=== PATIENT | female | born 1980 | race Caucasian/White ===

== ENCOUNTER 2017-01-27 16:50 | Inpatient (IN) | payer MEDICAID, OTHER ==
[2017-01-27 18:03] LABS: Hematocrit 42 % (35-47); Hemoglobin 13.9 g/dl (12.0-16.0); Mean Corpuscular HGB Conc 33 g/dl (31-36); Mean Corpuscular Hemoglobin 31 pg (27-31); Mean Corpuscular Volume 93 fL (80-97); Mean Platelet Volume 10 um3 (7.4-10.4); Red Blood Count 4.54 10^6/ul (4.0-5.4); Red Cell Distribution Width 13 % (10.5-15); White Blood Count 5.6 10^3/ul (3.5-10.8)
[2017-01-27 18:19] LABS: ALT 11 U/L (7-52); AST 15 U/L (13-39); Albumin 3.9 g/dL (3.2-5.2); Alkaline Phosphatase 41 U/L (34-104); Anion Gap 4 mmol/L (2-11); BUN/Creatinine Ratio 13.9 (8-20); Blood Urea Nitrogen 11 mg/dL (6-24); CO2 Carbon Dioxide 29 mmol/L (22-32); Calcium 8.8 mg/dL (8.6-10.3); Chloride 107 mmol/L (101-111); EGFR African American 104.7 (>60); EGFR Non-African American 81.4 (>60); Globulin 2.8 g/dL (2-4); Glucose 113 mg/dL (70-100); Sodium 140 mmol/L (133-145); Total Protein 6.7 g/dL (6.4-8.9)
[2017-01-27 18:38] LABS: Acetaminophen < 15 mcg/mL; Alcohol < 10 mg/dL (<10); Salicylate < 2.50 mg/dL (<30)
[2017-01-27 18:49] LABS: TSH (Thyroid Stimulating Horm) 1.61 mcIU/mL (0.34-5.60)
--- NOTE | 2017-01-27 22:34 | ED ---
Bryant Domingo Benjamin, scribed for Ji Castillo MD on 01/27/17 at 1717 . Psychiatric Complaint - HPI Summary HPI Summary: 36yo female reporting SI and depression. Hx of DM. Pt denies drug or ETOH use today, but pt took her regular psych meds. - History Of Current Complaint Chief Complaint: EDMentalHealth Time Seen by Provider: 01/27/17 17:12 Hx Obtained From: Patient Hx Last Menstrual Period: 2 WEEKS AGO Onset/Duration: Sudden Onset, Lasting Hours, Still Present Timing: Constant Severity Initially: Mild Severity Currently: Mild Character: Depressed Aggravating Factor(s): Nothing Alleviating Factor(s): Nothing Associated Signs And Symptoms: Positive: Negative Has Suicidal: Reports: Thoughts. Denies: With A Plan Has Homicidal: Denies: Thoughts, With A Plan - Allergies/Home Medications Allergies/Adverse Reactions: Allergies Allergy/AdvReac Type Severity Reaction Status Date / Time Amoxicillin AdvReac Intermediate Itching Verified 01/27/17 16:53 Azithromycin [From Zithromax] AdvReac Intermediate GI Upset Verified 01/27/17 16 :53 kiwi Allergy Severe Itching Uncoded 01/27/17 16:53 PMH/Surg Hx/FS Hx/Imm Hx Endocrine/Hematology History: Reports: Hx Thyroid Disease - related to medication. history of hypothyroid related to litihum Denies: Hx Diabetes Cardiovascular History: Denies: Hx Hypertension Respiratory History: Denies: Hx Asthma, Hx Chronic Obstructive Pulmonary Disease (COPD) GI History: Denies: Hx Ulcer Neurological History: Comment Only: Hx Seizures - per previous H&P was evaluated with long-term EEG for seizures Psychiatric History: Reports: Hx Depression, Hx Post Traumatic Stress Disorder, Hx Inpatient Treatment, Hx Community Mental Health Tx, Hx Bipolar Disorder, Hx Suicide Attempt Denies: Hx Eating Disorder, Hx of Violent Episodes Against Others - Surgical History Surgery Procedure, Year, and Place: leg vein removal (age 18) Oral surgery related to teeth grinding. Infectious Disease History: Denies: Hx Hepatitis, Hx Human Immunodeficiency Virus (HIV), Traveled Outside the [place] in Last 30 Days - Family History Known Family History: Positive: Other - Schizophrenia, depression - Social History Occupation: Unemployed Lives: Alone Alcohol Use: None Hx Substance Use: No Substance Use Type: Reports: None Hx Tobacco Use: No Smoking Status (MU): Never Smoked Tobacco Review of Systems Constitutional: Negative Eyes: Negative ENT: Negative Cardiovascular: Negative Respiratory: Negative Gastrointestinal: Negative Genitourinary: Negative Musculoskeletal: Negative Skin: Negative Neurological: Negative Positive: Depressed, Other - SI All Other Systems Reviewed And Are Negative: Yes Physical Exam Triage Information Reviewed: Yes Vital Signs On Initial Exam: Initial Vitals Temp Pulse Resp BP Pulse Ox 98.7 F 110 16 137/78 97 01/27/17 16:53 01/27/17 16:53 01/27/17 16:53 01/27/17 16:53 01/27/17 16:53 Vital Signs Reviewed: Yes Appearance: Positive: Well-Appearing, No Pain Distress, Well-Nourished Skin: Positive: Warm, Skin Color Reflects Adequate Perfusion, Dry Head/Face: Positive: Normal Head/Face Inspection Eyes: Positive: EOMI, ALMA, Conjunctiva Clear ENT: Positive: Normal ENT inspection, Hearing grossly normal Neck: Positive: Supple, Nontender Respiratory/Lung Sounds: Positive: Clear to Auscultation, Breath Sounds Present Cardiovascular: Positive: RRR Abdomen Description: Positive: Nontender, Soft Bowel Sounds: Positive: Present Musculoskeletal: Positive: Strength/ROM Intact Neurological: Positive: Sensory/Motor Intact, Alert, Oriented to Person Place, Time, CN Intact II-III Psychiatric: Positive: Depressed Diagnostics - Vital Signs Vital Signs Temp Pulse Resp BP Pulse Ox 01/27/17 16:53 98.7 F 110 16 137/78 97 - Laboratory Lab Results: Lab Results 01/27/17 01/27/17 Range/Units 17:53 17:53 WBC 5.6 (3.5-10.8) 10^3/ul RBC 4.54 (4.0-5.4) 10^6/ul Hgb 13.9 (12.0-16.0) g/dl Hct 42 (35-47) % MCV 93 (80-97) fL MCH 31 (27-31) pg MCHC 33 (31-36) g/dl RDW 13 (10.5-15) % Plt Count 219 (150-450) 10^3/ul MPV 10 (7.4-10.4) um3 Neut % (Auto) 52.8 (38-83) % Lymph % (Auto) 34.0 (25-47) % [place] % (Auto) 10.7 H (1-9) % Eos % (Auto) 1.9 (0-6) % Baso % (Auto) 0.6 (0-2) % Absolute Neuts (auto) 2.9 (1.5-7.7) 10^3/ul Absolute Lymphs (auto) 1.9 (1.0-4.8) 10^3/ul Absolute Monos (auto) 0.6 (0-0.8) 10^3/ul Absolute Eos (auto) 0.1 (0-0.6) 10^3/ul Absolute Basos (auto) 0 (0-0.2) 10^3/ul Absolute Nucleated RBC 0 10^3/ul Nucleated RBC % 0 Sodium 140 (133-145) mmol/L Potassium 4.0 (3.5-5.0) mmol/L Chloride 107 (101-111) mmol/L Carbon Dioxide 29 (22-32) mmol/L Anion Gap 4 (2-11) mmol/L BUN 11 (6-24) mg/dL Creatinine 0.79 (0.51-0.95) mg/dL Est GFR ( Amer) 104.7 (>60) Est GFR (Non-Af Amer) 81.4 (>60) BUN/Creatinine Ratio 13.9 (8-20) Glucose 113 H (70-100) mg/dL Calcium 8.8 (8.6-10.3) mg/dL Total Bilirubin 0.30 (0.2-1.0) mg/dL AST 15 (13-39) U/L ALT 11 (7-52) U/L Alkaline Phosphatase 41 (34-104) U/L Total Protein 6.7 (6.4-8.9) g/dL Albumin 3.9 (3.2-5.2) g/dL Globulin 2.8 (2-4) g/dL Albumin/Globulin Ratio 1.4 (1-3) TSH 1.61 (0.34-5.60) mcIU/mL Beta HCG, Quant < 0.60 mIU/mL Salicylates < 2.50 (<30) mg/dL Acetaminophen < 15 mcg/mL Serum Alcohol < 10 (<10) mg/dL Result Diagrams: 01/27/17 17:53 01/27/17 17:53 Lab Statement: Any lab studies that have been ordered have been reviewed, and results considered in the medical decision making process. Course/Dx - Course Course Of Treatment: Reviewed pts medication and allergy lists. Pt is medically cleared for mental health evaluation at 1999. [facility] HOLD AFTER MHE. - Differential Dx/Clinical Impression Provider Diagnosis: Mental health problem Discharge - Discharge Plan Condition: Stable Disposition: OTHER Discharge Disposition Comment: . Referrals: Giuseppe Manriquez, JUAN M [Primary Care Provider] - The documentation as recorded by the Bryant guerrero Benjamin accurately reflects the service I personally performed and the decisions made by me, Ji Castillo MD.
[2017-01-28] MEDS ORDERED: clonazePAM TAB(*) 1 MG PO ONE (20:00)
[2017-01-28] MEDS ORDERED: ARIPiprazole TAB* 5 MG PO ONE (20:00)
[2017-01-28] MEDS ORDERED: clonazePAM TAB(*) 1 MG ONE (22:10)
[2017-01-28] MEDS ORDERED: ARIPiprazole TAB* 5 MG ONE (22:11)
[2017-01-29] MEDS: BuPROPion XL* 150 MG TAB.XL PO SCH (13:28)
[2017-01-29] MEDS: clonazePAM TAB(*) 0.5 MG PO PRN (13:29)
[2017-01-29 14:52] LABS: Urine Bilirubin Negative (Negative); Urine Glucose Negative (Negative); Urine Nitrite Negative (Negative)
[2017-01-29 16:15] LABS: Benzodiazepine Urine Screen None Detected (None Detect)
[2017-01-29] MEDS ORDERED: ARIPiprazole TAB* 5 MG PO SCH (20:00)
--- NOTE | 2017-01-29 21:50 | HP ---
HISTORY AND PHYSICAL: DATE OF ADMISSION: 01/28/17 SUPERVISING PSYCHIATRIST: Dr. Coleman Aguilar * (DICTATED BY HOMAR MALHOTRA NP) JUSTIFICATION FOR ADMISSION: The patient brought herself to the ED with complaints of increasing depression and suicidal ideation. She reported intrusive thoughts and afraid of impulsively acting upon these thoughts. She is currently in between a permanent housing situation. She merits hospitalization for immediate safety and stabilization. CHIEF COMPLAINT: "I have been going through a lot lately." HISTORY OF PRESENT ILLNESS: Kalee is a 36-year-old white woman with two previous admissions to the behavioral services unit, one in April of 2015 and then in December 2015. She has a history of bipolar disorder and has been treated at [facility]. She reports good rapport with both her therapist and her psychiatrist. Kalee states that in the beginning of September, she met a man online who lives in [place]. She states that she was more impulsive. She endorses lack of sleep with increased energy. She states that she was behaving in ways that were atypical for her. During the course of this new relationship, she made plans to move to [place] including not renewing her lease on her apartment. A few weeks ago, she changed her mind about moving to [place] and noted that she became more anxious and depressed. She states that it was too late to change her mind in regards to housing and now does not have her own apartment. She has been staying in a hotel or motel or staying with a friend. Kalee reports increasingly frequent suicidal thoughts. She states she has intrusive thoughts to drive into another car. She is afraid of impulsively acting on these thoughts. She states she is labile. She endorses anxiety. She is tearful during discussion and states this is not typical for her. She reports hypersomnia, increase in appetite, she endorses binge eating, she reports an increase of 70 pounds in the past year. She reports decreased interactions, social isolation, and anhedonia. She denies AH or VH. She denies HI or . PAST PSYCHIATRIC HISTORY: As stated above, Kalee is a patient of [facility]. Her therapist is Duncan Diane. She states that she has a very good relationship with him. He has been sick for approximately 3 weeks, so she has not been able to be in contact with him. Otherwise, she holds him in very high regard and appreciates the therapy she receives. She also reports that her psychiatrist, Dr. Robledo, is very helpful and she has a good relationship with her. As stated above, Kalee has been admitted to [facility] twice previously in 2015 and 2016. No other psychiatric history noted. SUBSTANCE USE HISTORY: Kalee reports drinking of alcohol occasionally in the past. She states that she has not done so recently as her psychiatrist encouraged her to refrain from alcohol due to its depressive effect. She reports having a cigarette very occasionally on social occasions. She denies other substance use. FAMILY PSYCHIATRIC HISTORY: Her mother had a history of schizoaffective disorder. She completed suicide. 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 CURRENT MEDICATIONS: Prescribed by Dr. Robledo: 1. Abilify 10 mg q.h.s. 2. Wellbutrin ? 200 mg q.a.m. 3. Clonazepam 1 mg b.i.d. The patient states she generally takes half to 1 tab daily. ALLERGIES: AMOXICILLIN, AZITHROMYCIN, KIWI. SVP RESEARCH [employer] EBUSINESS OPERATIONS HISTORY: Her last menstrual period 8 days ago. PRIMARY CARE PROVIDER: Malik Briones, Nurse practitioner in [place], [place]. SOCIAL HISTORY: Patient was raised in [place], [place]. Her parents when she was 1yo. She lived with her mother and had no contact with her father since then. Her mother began a relationship with Kalee's stepfother when patient was 3yo. They when Vickie was 10yo. The family moved to [place] two years later. Kalee's mother was hospitalized multiple times for schizoaffective d/o and completed suicide when patient was 27yo. 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 She lives alone. She is single, not currently dating. She considers herself bisexual. She denies current domestic violence or abuse. She graduated high school and also college. She has a bachelor's degree in technology. REVIEW OF SYSTEMS: The patient denies any chest pain, tachycardia, or palpitations. She denies dyspnea, productive cough, or hemoptysis. She denies any GI pain, nausea, vomiting, diarrhea, or constipation. Denies any acute musculoskeletal pain. Denies headaches or neurological complaints. PHYSICAL EXAMINATION Done in the emergency department reviewed. The patient denies need for repeat physical exam. VITAL SIGNS: Most recent vital signs this morning, temperature 98.9, pulse 96, respirations 16, O2 sat of 100% on room air, blood pressure 134/86. MENTAL STATUS EXAM: The patient is obese, wearing her own blue T-shirt and black leggings. Her posture is slumped. Her head is down. Noted to have psychomotor retardation. She is cooperative with interview, tearful at times. Alert and oriented x3. Concentration is poor. Memory is good. Mood is anxious. Affect is flat. Speech is soft and mumbled. Thought process is circumstantial in regards to current housing and impact on mood. Thought content is positive for suicidal ideation. She denies AH or VH. She denies HI or . Her insight is good. Her judgment is fair. Fund of knowledge is good. LABORATORY DATA: In the emergency department, her CBC was within normal limits. Chemistry unremarkable. TSH was 1.61. Serum was negative. Toxicology was negative for salicylates, acetaminophen, and alcohol. Urine was not obtained in the emergency department. So, it was ordered on the mental health unit. Urinalysis was unremarkable and urine drug screen was negative for all substances. DIAGNOSES: [place] I: Bipolar I disorder, most recent episode depressed; r/o binge eating d/ o [place] II: borderline personality d/o by hx [place] III: Obesity. [place] IV: Severe stressors related to housing and social isolation. [place] V: 35. ASSESSMENT: Ms. Granda is a 36-year-old white female, undomiciled, single, self- employed, she brought herself to the emergency department with complaints of depression and intrusive suicidal thoughts. She reports fear of acting on impulses such as driving her car into another [place]. She has a history of 2 previous psychiatric admissions to [facility], both in the context of depression and suicidal ideation. She has a longstanding relationship with her outpatient providers. Most recently, they have been either on vacation or out of the office due to illness. Kalee presents as depressed. She reports that she was planning some major life changes this past spring likely in a hypomanic state. She agrees to hospitalization for immediate safety and stabilization. PLAN: Admit to adult behavioral health services unit on voluntary status. Code status is full. Place on 15-minute checks for safety. We will encourage supportive milieu and individual and group therapy. Outpatient medications will be resumed. According to [facility], she received clonazepam [address] mg b.i.d. on from Dr. Robledo, [facility] reference #[id number]. Per unit policy, the patient will be allowed to use computer for discharge planning and obtain housing. Discharge planning will include her outpatient providers. HOMAR MALHOTRA, DROPHAMMER OPERATOR [id number]/CPS #: [id number] MAYTE
[2017-01-30] MEDS: BuPROPion XL* 150 MG TAB.XL PO SCH (07:33)
[2017-01-30] MEDS: clonazePAM TAB(*) 0.5 MG PO PRN ×2 (07:33→20:02)
--- NOTE | 2017-01-30 15:59 | PN ---
Subjective - Subjective Service Type: 48090 Hosp care 15 min low complexity Subjective: Patient reports continued depressed mood with vague SI. She identifies mild improvement since prior to discharge. She reports improvement in anxiety. She reports eagerness to use the computer to check her email for correspondence with potential landlord. Patient inquires about use of phentermine as she and her PCP were considering for binge eating disorder. Phentermine not available, will use Vyvanse. We review interaction schedule checker and she agrees to dc wellbutrin at this time. Objective - Appearance Appearance: Obese Dysmorphic Features: Yes Hygiene: Normal Grooming: Well Kept - Behavior Psychomotor Activities: Abnormal-Decreased - psychomotor retardation Exhibits Abnormal Movement: Yes - Attitude and Relatedness Attitude and Relatedness: Cooperative Eye Contact: Fair - Speech Quality: Unpressured Latencies: Normal Quantity: Appropriate - Mood Patient's Decription of Mood: "Sad" - Affect Observed Affect: Depressed Affect Consistent with: Dysphoria - Thought Process Patient's Thought Process: Coherent, Goal Directed Thought Content: Yes Passive Wish, No Suicidal Planning, No Homicidal Ideation, No Paranoid Ideation - Sensorium Experiencing Hallucinations: No, Sensorium is Clear Type of Hallucinations: Visual: No, Auditory: No, Command: No - Level of Consciousness Level of Consciousness: Alert Orientation: Yes Intact, Yes Orientated to Time, Yes Orientated to Place, Yes Orientated to Person - Impulse Control Impulse Control: Tenuous - Insight and Judgement Insight and Judgement: Fair - Group Participation Particating in Group Activities: Yes - Medication Management Medication Management Adherence: Yes Assessment - Assessment Merits Inpatient Hospitalization: For Immediate Safety, For Stabilization, To Initiate Treatment, For Discharge Planning Inpatient DSM-IV Dx: bipolar II d/o, most recent episode depressed; binge eating d/o; autism spectrum d/o by history Clinical Impression: Sally is a 36yo white female in depressive episode of bipolar d/o. She met a man online who lives in [place] and made plans to him and move to [place]. This was likely during a hypomanic episode. She has since changed her plans and is actively looking for housing. She reports continued depressed mood and vague SI. Plan - Plan Treatment Plan: Name: SALLY DAVIS Birthdate: 1980 [id number] Increase aripiprazole to better target mood. Will dc buproprion in order to start vyvanse for binge eating disorder. Decrease observation to q30 min and allow staff pass. She may use computer for discharge planning. Continue to monitor for mood and thought content. Continued Medication Management: Different Medication Medications: Current Medications Aripiprazole (Abilify Tab*) 10 mg PO 1999 [facility] Last Admin: 01/29/17 20:58 Dose: 10 mg Clonazepam (Klonopin Tab(*)) 0.5 mg PO BID PRN PRN Reason: ANXIETY Last Admin: 01/30/17 07:33 Dose: 0.5 mg\\ Phentermine
[2017-01-30] MEDS: ARIPiprazole TAB* 15 MG PO SCH (20:01)
[2017-01-31] MEDS: BuPROPion XL* 150 MG TAB.XL PO SCH (07:33)
[2017-01-31] MEDS: Lisdexamfetamine(NF) 10 MG CAP PO SCH (07:33)
[2017-01-31] MEDS: clonazePAM TAB(*) 0.5 MG PO PRN ×2 (07:34→20:36)
[2017-01-31] MEDS: ARIPiprazole TAB* 15 MG PO SCH (20:36)
[2017-02-01] MEDS: Lisdexamfetamine(NF) 10 MG CAP PO SCH (07:34)
[2017-02-01] MEDS: clonazePAM TAB(*) 0.5 MG PO PRN ×2 (09:16→20:36)
[2017-02-01] MEDS: BuPROPion XL* 150 MG TAB.XL PO SCH (09:18)
[2017-02-01] MEDS: ARIPiprazole TAB* 15 MG PO SCH (20:37)
--- NOTE | 2017-02-01 21:06 | PN ---
Subjective - Subjective Service Type: 99178 Hosp care 15 min low complexity Subjective: Patient calm and cooperative with interview. She is full in affect and reports improved mood, energy and motivation on new psychotropic regimen. She reports poor sleep last night. She is amenable to start of Trazodone 100mg po qhs for insomnia. Patient denies SI/HI and AH/ VH. Objective - Appearance Appearance: Obese Dysmorphic Features: No Hygiene: Normal Grooming: Fairly Well Kept - Behavior Psychomotor Activities: Normal Exhibits Abnormal Movement: No - Attitude and Relatedness Attitude and Relatedness: Cooperative Eye Contact: Fair - Speech Quality: Unpressured Latencies: Normal Quantity: Appropriate - Mood Patient's Decription of Mood: "Okay" - Affect Observed Affect: Fair Affect Consistent with: Euthymia - Thought Process Patient's Thought Process: Coherent Thought Content: No Passive Wish, No Suicidal Planning, No Homicidal Ideation, No Paranoid Ideation - Sensorium Experiencing Hallucinations: No, Sensorium is Clear Type of Hallucinations: Visual: No, Auditory: No, Command: No - Level of Consciousness Level of Consciousness: Alert Orientation: Yes Intact, Yes Orientated to Time, Yes Orientated to Place, Yes Orientated to Person - Impulse Control Impulse Control: Intact - Insight and Judgement Insight and Judgement: Fair - Group Participation Particating in Group Activities: Yes - Medication Management Medication Management Adherence: Yes Assessment - Assessment Inpatient DSM-IV Dx: bipolar II d/o, most recent episode depressed; binge eating d/o; autism spectrum d/o by history Plan - Plan Treatment Plan: Name: SALLY DAVIS Birthdate: 1980 [id number] 1. Patient gives informed consent to start Trazodone 100mg po qhs for insomnia. 2. ECG ordered to eval rhythm on this regimen. 3. Continue current med regimen as currently ordered. Medications: Current Medications Aripiprazole (Abilify Tab*) 15 mg PO 2000 [facility] Last Admin: 02/01/17 20:37 Dose: 15 mg Bupropion HCl (Wellbutrin Xl *) 150 mg PO DAILY [facility] PRN Reason: Protocol Last Admin: 02/01/17 09:18 Dose: 150 mg Clonazepam (Klonopin Tab(*)) 0.5 mg PO BID PRN PRN Reason: ANXIETY Last Admin: 02/01/17 20:36 Dose: 0.5 mg Lisdexamfetamine Dimesylate (Vyvanse(Nf)) 60 mg PO DAILY [facility] Last Admin: 02/01/17 07:34 Dose: 60 mg - Discharge Plan Discharge Plan: Outpatient Follow Up
[2017-02-01] MEDS: traZODone TAB* 100 MG PO SCH (22:06)
[2017-02-02] MEDS: BuPROPion XL* 150 MG TAB.XL PO SCH (07:47)
[2017-02-02] MEDS: Lisdexamfetamine(NF) 10 MG CAP PO SCH (07:47)
[2017-02-02] MEDS: clonazePAM TAB(*) 0.5 MG PO PRN ×2 (07:47→20:27)
--- NOTE | 2017-02-02 11:55 | PN ---
[facility]: Group Therapy Note - Service Type Service Type: [id number] Group Psychotherapy - Cognitive Behavioral Group Therapy ( CBT):Patient was attentive and participatory in CBT programming this morning, and remained in good behavioral control. Patient expressed positive insights regarding relevant treatment interventions and goals.
--- NOTE | 2017-02-02 16:02 | PN ---
Subjective - Subjective Service Type: 99942 Hosp care 15 min low complexity Subjective: Patient was tearful and reports she feels "a little upset." She reports hearing from a staff member that she was going to be discharged today. She states that change is difficult for her and needs time to process. Creative/Art Director assures her that discharge is a team decision that includes her, as well. Sally reports satisfying change in energy and appetite with vyvanse. She states she is sleeping less but an appropriate amount, compared to 12+ hours previously. She denies anxiety/agitation side effects. She denies SI or passive wish. Objective - Appearance Appearance: Obese Dysmorphic Features: Yes Hygiene: Normal Grooming: Well Kept - Behavior Psychomotor Activities: Normal Exhibits Abnormal Movement: No - Attitude and Relatedness Attitude and Relatedness: Cooperative Eye Contact: Good - Speech Quality: Unpressured Latencies: Normal Quantity: Appropriate - Mood Patient's Decription of Mood: "Upset" - Affect Observed Affect: Depressed Affect Consistent with: Dysphoria - Thought Process Patient's Thought Process: Coherent, Goal Directed Thought Content: No Passive Wish, No Suicidal Planning, No Homicidal Ideation, No Paranoid Ideation - Sensorium Experiencing Hallucinations: No, Sensorium is Clear Type of Hallucinations: Visual: No, Auditory: No, Command: No - Level of Consciousness Level of Consciousness: Alert Orientation: Yes Intact, Yes Orientated to Time, Yes Orientated to Place, Yes Orientated to Person - Impulse Control Impulse Control: Intact - Insight and Judgement Insight and Judgement: Good - Group Participation Particating in Group Activities: Yes - Medication Management Medication Management Adherence: Yes Assessment - Assessment Merits Inpatient Hospitalization: For Immediate Safety, Consolidate Improvements , Pending Safe DC Plan Inpatient DSM-IV Dx: bipolar II d/o, most recent episode depressed; binge eating d/o; autism spectrum d/o by history Clinical Impression: Sally is a 36yo white female in depressive episode of bipolar d/o. She met a man online who lives in [place] and made plans to him and move to [place]. This was likely during a hypomanic episode. She has since changed her plans and is actively looking for housing. She reports improved mood denies SI. Plan - Plan Treatment Plan: Name: SALLY DAVIS Birthdate: 1980 [id number] Continue current medications and unit programming. Continue to allow computer for discharge planning. Continue to monitor for mood and thought content. Continued Medication Management: Different Medication Medications: Current Medications Aripiprazole (Abilify Tab*) 15 mg PO 2000 [facility] Last Admin: 02/01/17 20:37 Dose: 15 mg Bupropion HCl (Wellbutrin Xl *) 150 mg PO DAILY [facility] PRN Reason: Protocol Last Admin: 02/02/17 07:47 Dose: 150 mg Clonazepam (Klonopin Tab(*)) 0.5 mg PO BID PRN PRN Reason: ANXIETY Last Admin: 02/02/17 07:47 Dose: 0.5 mg Lisdexamfetamine Dimesylate (Vyvanse(Nf)) 60 mg PO DAILY [facility] Last Admin: 02/02/17 07:47 Dose: 60 mg Trazodone HCl (Desyrel Tab*) 100 mg PO BEDTIME [facility] Last Admin: 02/01/17 22:06 Dose: 100 mg - Discharge Plan Discharge Plan: Outpatient Follow Up [facility]
[2017-02-02] MEDS: traZODone TAB* 100 MG PO SCH (20:26)
[2017-02-02] MEDS: ARIPiprazole TAB* 15 MG PO SCH (20:26)
[2017-02-03] MEDS: BuPROPion XL* 150 MG TAB.XL PO SCH (08:19)
[2017-02-03] MEDS: clonazePAM TAB(*) 0.5 MG PO PRN ×2 (08:19→20:24)
[2017-02-03] MEDS: Lisdexamfetamine(NF) 10 MG CAP PO SCH (08:20)
--- NOTE | 2017-02-03 14:52 | PN ---
Subjective - Subjective Service Type: 99139 Hosp care 15 min low complexity Subjective: Patient reports waking with vague SI and contemplating means to do so. She states she would not try to overdose on pills as she witnessed her mother doing so then seizing in the ambulance. Her mother later was comatose. She denies other plans or contemplating other means. Slaly reports mild improvement in mood despite feeling "groggy." She requests decrease in trazodone and to utilize prn. She continues to endorse satisfaction with Vyvanse for binge eating disorder. Patient denies increased anxiety/agitation. Patient expresses feeling relieved after meeting with correctional case manager this morning. She is hopeful to find housing. Objective - Appearance Appearance: Obese Dysmorphic Features: Yes Hygiene: Normal Grooming: Well Kept - Behavior Psychomotor Activities: Normal Exhibits Abnormal Movement: No - Attitude and Relatedness Attitude and Relatedness: Cooperative Eye Contact: Fair - Speech Quality: Unpressured Latencies: Normal Quantity: Appropriate - Mood Patient's Decription of Mood: "Good" - Affect Observed Affect: Non-labile Affect Consistent with: Euthymia - Thought Process Patient's Thought Process: Coherent, Goal Directed Thought Content: Yes Suicidal Planning, No Passive Wish, No Homicidal Ideation, No Paranoid Ideation - Sensorium Experiencing Hallucinations: No, Sensorium is Clear Type of Hallucinations: Visual: No, Auditory: No, Command: No - Level of Consciousness Level of Consciousness: Alert Orientation: Yes Intact, Yes Orientated to Time, Yes Orientated to Place, Yes Orientated to Person - Impulse Control Impulse Control: Intact - Insight and Judgement Insight and Judgement: Good - Group Participation Particating in Group Activities: Yes - Medication Management Medication Management Adherence: Yes Assessment - Assessment Merits Inpatient Hospitalization: For Immediate Safety, For Stabilization, For Discharge Planning, Pending Safe DC Plan Inpatient DSM-IV Dx: bipolar II d/o, most recent episode depressed; binge eating d/o; autism spectrum d/o by history Clinical Impression: Sally is a 36yo white female in depressive episode of bipolar d/o. She met a man online who lives in [place] and made plans to him and move to [place]. This was likely during a hypomanic episode. She has since changed her plans and is actively looking for housing. She presented depressed with vague SI. She is responding well to increased dose of abilify. Her PCP was beginning work up for use of phentermine for binge eating d/o. She agreed to trial of Vyvanse and is reporting efficacy and denies side effects. Plan - Plan Treatment Plan: Name: SALLY DAVIS Birthdate: 1980 [id number] Decrease trazodone to 50mg prn insomnia. Continue unit programming and use of computer for discharge planning. Continue to monitor for mood and thought content. Discharge planning to include triggering stressor of lack of housing. Continued Medication Management: Different Medication Medications: Current Medications Aripiprazole (Abilify Tab*) 15 mg PO 1999 [facility] Last Admin: 02/02/17 20:26 Dose: 15 mg Bupropion HCl (Wellbutrin Xl *) 150 mg PO DAILY [facility] PRN Reason: Protocol Last Admin: 02/03/17 08:19 Dose: 150 mg Clonazepam (Klonopin Tab(*)) 0.5 mg PO BID PRN PRN Reason: ANXIETY Last Admin: 02/03/17 08:19 Dose: 0.5 mg Lisdexamfetamine Dimesylate (Vyvanse(Nf)) 60 mg PO DAILY [facility] Last Admin: 02/03/17 08:20 Dose: 60 mg Trazodone HCl (Desyrel Tab*) 50 mg PO BEDTIME PRN PRN Reason: INSOMNIA - Discharge Plan Discharge Plan: Outpatient Follow Up Outpatient Program: [facility]
[2017-02-03] MEDS: ARIPiprazole TAB* 15 MG PO SCH (20:23)
[2017-02-03] MEDS ORDERED: traZODone TAB* 50 MG TAB PO PRN (21:00)
[2017-02-04] MEDS: Lisdexamfetamine(NF) 10 MG CAP PO SCH (08:21)
[2017-02-04] MEDS: BuPROPion XL* 150 MG TAB.XL PO SCH (08:21)
[2017-02-04] MEDS: clonazePAM TAB(*) 0.5 MG PO PRN ×2 (08:21→12:40)
[2017-02-04 08:22] VITALS: BP 126/73
--- NOTE | 2017-02-05 15:34 | DS ---
CC: Dr. Robledo, [facility]; Giuseppe Manriquez NP, [place], [place]. * DISCHARGE SUMMARY: DATE OF ADMISSION: 01/28/17 DATE OF DISCHARGE: 02/04/17 SUPERVISING PSYCHIATRIST: Nehemias Green MD * (DICTATED BY HOMAR MALHOTRA NP) PRIMARY CARE PROVIDER: Giuseppe Manriquez NP, [place], [place] DISCHARGE DIAGNOSES: Hellier I: Bipolar I disorder, most recent episode depressed, binge eating disorder, autism spectrum disorder. Hellier II: Borderline personality disorder by history. Hellier III: Obesity. Hellier IV: Moderate; stressors related to tenuous housing. Hellier V: 63. CONDITION AT THE TIME OF DISCHARGE: Improved. Kalee reports she is feeling better today with the decrease in trazodone. She states that she was "pretty anxious" earlier but this improved with p.r.n. dose of clonazepam. She is looking forward to discharge and she is going to stay with her cousin agustin. She identifies that she is somewhat nervous about finding permanent housing but is also hopeful due to being linked with case management. She is insightful in that she has been working diligently on finding housing and identifies that that was the main trigger for her depressive episode. She denies suicidal ideation. She denies hopelessness or helplessness. She is presenting with an improved affect. She states that she rarely smiles despite a happy mood and we discussed the diagnosis of autism spectrum disorder. She goes on to say that identifying that diagnosis has been helpful for her in being able to navigate the symptoms and interact with people. MENTAL STATUS EXAM: She is a well-developed, obese woman. Hygiene is normal. She is well kempt. She appears stated age. She is cooperative and pleasant. She is talkative primarily in one-on-one situations. She is alert and oriented x3. Her eye contact is good. Her speech is soft and articulate. Her mood is "better." Affect is full. Thought process is coherent, logical, goal directed. Thought content is negative for passive wish, SI, HI or paranoia. She denies AH or VH. Her insight is good. Her judgment is good and her fund of knowledge is excellent. DISCHARGE INSTRUCTIONS: Instructions were given to the patient by nursing staff. MEDICATIONS: She was given electronic prescriptions 2-week supply for the followin. Abilify 15 mg p.o. daily. 2. Wellbutrin XL 150 mg p.o. daily. 3. Trazodone 50 mg p.o. q.h.s. p.r.n. insomnia. 4. Vyvanse 60 mg p.o. q. a.m., #30, 0 refills. 5. Clonazepam 0.5 mg p.o. b.i.d. p.r.n. anxiety, #28, 0 refills. DIET: Regular. ACTIVITY: Ambulation as tolerated. Tobacco cessation is not applicable. There are no pending labs or diagnostic studies at the time of discharge. FOLLOWUP: She will follow up with [facility], she has an appointment with Dr. Robledo on at 2 p.m. She will also meet with care transitions nurse Liss Mosqueda at the clinic while in the building. Her next appointment with her therapist Duncan Diane will also be set up while she is at [facility]. HOSPITAL COURSE: A. Reason for admission: The patient brought herself to the ED with complaints of increasing depression and suicidal ideation. She reported intrusive thoughts of suicidal ideation and she was afraid of impulsively acting upon these thoughts. She is currently in between a permanent housing situation. B. Psychiatric treatment rendered: Kalee was admitted to Adult Behavioral Services Unit on voluntary status. Her code status was full. She was placed on 15- minute checks for safety. She participated fully in supportive milieu and individual and group therapy. She identified this past spring, she met a man online and had made plans to move to [place], she reports that this was likely due to an hypomanic episode. She chose not to move to [place] and had by then given up her apartment. Therefore, she was in the midst of finding new housing. She had been staying with friends intermittently or paying for hotel rooms. Over the course of the admission, Kalee reported problematic binge eating disorder and that she and her primary care provider had worked her up for potential use of phentermine. She states that she had had blood work and EKG and was planning to add these medications in her next visit. She agreed to a trial of Vyvanse for binge eating disorder while on the unit and she obtained an EKG, which was NSR. Abilify was increased to 15 mg to target depressive mood. Klonopin was prescribed at 0.5 mg p.o. b.i.d. p.r.n. anxiety. She continues to use this sparingly and seemingly appropriately. Kalee reported much improvement in mood, energy and she reported decrease in appetite and urge to binge eat. She denied side effects of agitations or anxiety with the Vyvanse. She hopes to be able to continue this on an outpatient basis. Kalee was safe on all checks. Her observation status was decreased to 30 minutes and she was allowed staff pass and computer privileges for discharge planning. She expressed readiness for discharge. She states her understanding that permanent housing may be available and understands resources available to her for temporary housing in the meantime. At the time of discharge, she was agreeable to discharge plan, eager to do so and denied suicidal ideation or depressed mood. HOMAR MALHOTRA NP [id number]/CPS #: [id number] MAYTE
== END 2017-02-04 12:55 | disposition home or self-care (01) | DRG 753 ==
LOC: ED 16:50 → BSU 01-28 15:35
PROVIDERS: ADMIT Psychiatry & Neurology Psychiatry; ATTEND Psychiatry & Neurology Psychiatry
PROC: GZHZZZZ Group Psychotherapy (ICD-10-PCS; principal; 2017-02-02)
DX: F31.9 Bipolar disorder, unspecified (principal); R45.851 Suicidal ideations; Z68.41 Body mass index [BMI] 40.0-44.9, adult; E11.9 Type 2 diabetes mellitus without complications; E03.9 Hypothyroidism, unspecified; F43.10 Post-traumatic stress disorder, unspecified; E66.9 Obesity, unspecified; F60.3 Borderline personality disorder; F84.0 Autistic disorder; F50.81 Binge eating disorder; G47.00 Insomnia, unspecified; Z88.1 Allergy status to other antibiotic agents; Z91.018 Allergy to other foods; Z91.5 Personal history of self-harm; Z81.8 Family history of other mental and behavioral disorders; Z56.0 Unemployment, unspecified
CPT/HCPCS: 36415; 80053; 80307; 80320; 80329; 81003; 84443; 84702; 85025; 90853; 93005; 99222; 99231; 99238; A9270-GY; G0480

== ENCOUNTER 2017-03-18 14:57 | Inpatient (IN) | payer OTHER ==
[2017-03-18 15:28] LABS: Urine Bacteria 1+ (Absent); Urine Bilirubin Negative (Negative); Urine Glucose Negative (Negative); Urine Nitrite Negative (Negative)
[2017-03-18 15:47] LABS: Hematocrit 43 % (35-47); Hemoglobin 14.5 g/dl (12.0-16.0); Mean Corpuscular HGB Conc 34 g/dl (31-36); Mean Corpuscular Hemoglobin 31 pg (27-31); Mean Corpuscular Volume 90 fL (80-97); Mean Platelet Volume 9 um3 (7.4-10.4); Red Blood Count 4.76 10^6/ul (4.0-5.4); Red Cell Distribution Width 13 % (10.5-15); White Blood Count 6.7 10^3/ul (3.5-10.8)
[2017-03-18 16:06] LABS: ALT 18 U/L (7-52); AST 15 U/L (13-39); Albumin 4.2 g/dL (3.2-5.2); Alkaline Phosphatase 31 U/L (34-104); Anion Gap 8 mmol/L (2-11); BUN/Creatinine Ratio 8.8 (8-20); Blood Urea Nitrogen 9 mg/dL (6-24); CO2 Carbon Dioxide 25 mmol/L (22-32); Calcium 9.3 mg/dL (8.6-10.3); Chloride 102 mmol/L (101-111); EGFR Non-African American 60.6 (>60); Globulin 2.9 g/dL (2-4); Glucose 88 mg/dL (70-100); Potassium 3.8 mmol/L (3.5-5.0); Sodium 135 mmol/L (133-145); Total Protein 7.1 g/dL (6.4-8.9)
[2017-03-18 16:12] LABS: Benzodiazepine Urine Screen None Detected (None Detect)
[2017-03-18 16:36] LABS: Acetaminophen < 15 mcg/mL; Alcohol < 10 mg/dL (<10); Salicylate < 2.50 mg/dL (<30)
[2017-03-18 16:38] LABS: TSH (Thyroid Stimulating Horm) 1.84 mcIU/mL (0.34-5.60)
--- NOTE | 2017-03-18 18:40 | ED ---
Jayy Domingo Thomas, scribed for Hitesh Yang MD on 03/18/17 at 1603 . Psychiatric Complaint - HPI Summary HPI Summary: The patient is a 36 y/o F referred to the ED from her psychiatrist Dr. Robledo after she expressed SI with a plan during evaluation earlier today. She has had SI for some time but it seemed to worsen in the last week. She has a plan to take a lot of pills. She has been sleeping excessively and eating only a small amount. - History Of Current Complaint Chief Complaint: [facility]MentalHealth Time Seen by Provider: 03/18/17 15:13 Hx Obtained From: Patient Hx Last Menstrual Period: 2 WEEKS AGO Onset/Duration: Lasting Weeks - chronic complaint "for a long time", Still Present, Worse Since - worse in last week Timing: Constant Severity Currently: Severe Character: Depressed Aggravating Factor(s): Nothing Alleviating Factor(s): Nothing Associated Signs And Symptoms: Positive: Sleep Disturbance - more sleep, Appetite Change - less food Related History: Positive For: Prior Psychiatric Issues Has Suicidal: Reports: Thoughts, With A Plan - Allergies/Home Medications Allergies/Adverse Reactions: Allergies Allergy/AdvReac Type Severity Reaction Status Date / Time Amoxicillin AdvReac Intermediate Itching Verified 01/27/17 16:53 Azithromycin [From Zithromax] AdvReac Intermediate GI Upset Verified 01/27/17 16 :53 kiwi Allergy Severe Itching Uncoded 01/27/17 16:53 PMH/Surg Hx/FS Hx/Imm Hx Previously Healthy: No Endocrine/Hematology History: Reports: Hx Thyroid Disease - related to medication. history of hypothyroid related to litihum, Other Endocrine/ Hematological Disorders - surgery on her veins left leg when she was 18 years old Denies: Hx Anticoagulant Therapy, Hx Blood Disorders, Hx Blood Transfusions, Hx Bone Marrow Disease, Hx Diabetes, Hx Systemic Lupus Erythematosus, Hx Sickle Cell Disease, Hx Anemia, Hx Unexplained Bleeding Cardiovascular History: Denies: Hx Hypertension Respiratory History: Reports: Hx Seasonal Allergies Denies: Hx Asthma, Hx Chronic Obstructive Pulmonary Disease (COPD) GI History: Denies: Hx Ulcer Sensory History: Denies: Hx Contacts or Glasses, Hx Hearing Aid Opthamlomology History: Denies: Hx Contacts or Glasses Neurological History: Comment Only: Hx Seizures - per previous H&P was evaluated with long-term EEG for seizures Psychiatric History: Reports: Hx Anxiety, Hx Eating Disorder - "gorging", Hx Depression, Hx Panic Disorder, Hx Post Traumatic Stress Disorder, Hx Inpatient Treatment, Hx Community Mental Health Tx, Hx Bipolar Disorder, Hx Suicide Attempt, Other Psychiatric Issues/Disorders - Autism Spectrum Disorder Denies: Hx Attention Deficit Hyperactivity Disorder, Hx of Violent Episodes Against Others - Cancer History Hx Chemotherapy: No - Surgical History Surgery Procedure, Year, and Place: leg vein removal (age 18) Oral surgery related to teeth grinding. Infectious Disease History: No Infectious Disease History: Denies: Hx Hepatitis, Hx Human Immunodeficiency Virus (HIV), Hx of Known/ Suspected MRSA, Hx Shingles, Hx Tuberculosis, History Other Infectious Disease, Traveled Outside the [place] in Last 30 Days - Family History Known Family History: Positive: Other - Schizophrenia, depression - Social History Alcohol Use: None Alcohol Amount: denies Hx Substance Use: No Substance Use Type: Reports: None Hx Tobacco Use: No Smoking Status (MU): Former Smoker Type: Cigarettes Have You Smoked in the Last Year: Yes Review of Systems Negative: Fever Neurological: Other Psychological: Other - SI with a plan, Increased Sleep, Decreased appetite All Other Systems Reviewed And Are Negative: Yes Physical Exam - Summary Physical Exam Summary: VITAL SIGNS: Reviewed. GENERAL: ~Patient is a well-developed and nourished female who is lying comfortable in the stretcher. ~Patient is not in any acute respiratory distress. HEAD AND FACE: No signs of trauma. ~No ecchymosis, hematomas or skull depressions. No sinus tenderness. EYES: PERRLA, EOMI x 2, No injected conjunctiva, no nystagmus. EARS: Hearing grossly intact. Ear canals and tympanic membranes are within normal limits. MOUTH: Oropharynx within normal limits. NECK: Supple, trachea is midline, no adenopathy, no JVD, no carotid bruit, no c- spine tenderness, neck with full ROM. CHEST: Symmetric, no tenderness at palpation LUNGS: Clear to auscultation bilaterally. No wheezing or crackles. CVS: Regular rate and rhythm, S1 and S2 present, no murmurs or gallops appreciated. ABDOMEN: Soft, non-tender. No signs of distention. No rebound no guarding, and no masses palpated. Bowel sounds are normal. EXTREMITIES: FROM in all major joints, no edema, no cyanosis or clubbing. NEURO: Alert and oriented x 3. No acute neurological deficits. Speech is normal and follows commands. SKIN: Dry and warm PSYCH: She has suicidal ideation with plan. Depressed, quiet. No homicidal thoughts or plan. No signs of psychosis or pressure speech. No tangential speech. Triage Information Reviewed: Yes Vital Signs On Initial Exam: Initial Vitals Temp Pulse Resp BP Pulse Ox 99.3 F 87 14 119/73 100 03/18/17 15:01 03/18/17 15:01 03/18/17 15:01 03/18/17 15:01 03/18/17 15:01 Vital Signs Reviewed: Yes - Yimi Coma Scale Coma Scale Total: 15 Diagnostics - Vital Signs Vital Signs Temp Pulse Resp BP Pulse Ox 03/18/17 15:01 99.3 F 87 14 119/73 100 - Laboratory Lab Results: Lab Results 03/18/17 03/18/17 Range/Units 15:15 15:30 WBC 6.7 (3.5-10.8) 10^3/ul RBC 4.76 (4.0-5.4) 10^6/ul Hgb 14.5 (12.0-16.0) g/dl Hct 43 (35-47) % MCV 90 (80-97) fL MCH 31 (27-31) pg MCHC 34 (31-36) g/dl RDW 13 (10.5-15) % Plt Count 201 (150-450) 10^3/ul MPV 9 (7.4-10.4) um3 Neut % (Auto) 63.2 (38-83) % Lymph % (Auto) 24.1 L (25-47) % Coffey % (Auto) 10.5 H (1-9) % Eos % (Auto) 1.4 (0-6) % Baso % (Auto) 0.8 (0-2) % Absolute Neuts (auto) 4.2 (1.5-7.7) 10^3/ul Absolute Lymphs (auto) 1.6 (1.0-4.8) 10^3/ul Absolute Monos (auto) 0.7 (0-0.8) 10^3/ul Absolute Eos (auto) 0.1 (0-0.6) 10^3/ul Absolute Basos (auto) 0.1 (0-0.2) 10^3/ul Absolute Nucleated RBC 0 10^3/ul Nucleated RBC % 0 Urine Color Yellow Urine Appearance Cloudy Urine pH 8.0 (5-9) Ur Specific [place] 1.006 L (1.010-1.030) Urine Protein Negative (Negative) Urine Ketones Negative (Negative) Urine Blood Negative (Negative) Urine Nitrate Negative (Negative) Urine Bilirubin Negative (Negative) Urine Urobilinogen Negative (Negative) Ur Leukocyte Esterase 2+ H (Negative) Urine WBC (Auto) Trace(0-5/hpf) (Absent) Urine RBC (Auto) Trace(0-2/hpf) (Absent) Ur Squamous Epith Cells Present H (Absent) Urine Bacteria 1+ H (Absent) Urine Glucose Negative (Negative) Result Diagrams: 03/18/17 15:30 03/18/17 15:30 Lab Statement: Any lab studies that have been ordered have been reviewed, and results considered in the medical decision making process. Course/Dx - Course Course Of Treatment: Medically cleared for MHE at 16:26. Assessment/Plan: The patient is a 36 y/o F referred to the ED from her psychiatrist Dr. Robledo after she expressed SI with a plan during evaluation earlier today. She has had SI for some time but it seemed to worsen in the last week. She has a plan to take a lot of pills. She has been sleeping excessively and eating only a small amount. Test results are without any significant abnormality. The patient is cleared for MHE. The patient is awaiting MHE at this time. She will be signed out to the next ER attending pending MHE. The patient is hemodynamically stable and alert and oriented x3. - Differential Dx/Clinical Impression Differential Diagnosis/HQI/PQRI: Positive: Depression, Suicidal Ideation Provider Diagnosis: Suicidal ideation Discharge - Discharge Plan Condition: Fair Disposition: OTHER Discharge Disposition Comment: Signed out to next ER attending pending MHE awaiting dispo. Referrals: Giuseppe Manriquez NP [Primary Care Provider] - The documentation as recorded by the Jayy guerrero Thomas accurately reflects the service I personally performed and the decisions made by me, Hitesh Yang MD.
[2017-03-18] MEDS ORDERED: Acetaminophen TAB* 325 MG PO PRN (23:35)
[2017-03-18] MEDS ORDERED: Al Hydrox/Mg Hydrox/Simet LIQ* 30 ML UDC PO PRN (23:35)
[2017-03-19] MEDS: buPROPion SR TAB.SR* 100 MG PO SCH (08:26)
[2017-03-19] MEDS: Lisdexamfetamine(NF) 10 MG CAP PO SCH (08:26)
[2017-03-19] MEDS: clonazePAM TAB(*) 0.5 MG PO PRN ×2 (08:27→21:39)
[2017-03-19] MEDS: Vitamin THERAPEUTIC TAB PO SCH (08:29)
[2017-03-19] MEDS: ARIPiprazole TAB* 15 MG PO SCH (08:29)
[2017-03-19] MEDS ORDERED: Venlafaxine EXT RELEASE CAP* 75 MG PO SCH (09:00)
--- NOTE | 2017-03-19 22:59 | HP ---
HISTORY AND PHYSICAL: DATE OF ADMISSION: 03/19/17 SUPERVISING PSYCHIATRIST: Nehemias Green MD* (dictated by PIOTR Campbell) . JUSTIFICATION FOR ADMISSION: The patient was seen by her outpatient psychiatrist yesterday and voiced severe depression with intrusive thoughts of suicide and plans to take overdose of medications. She merits hospitalization for immediate safety and stabilization. CHIEF COMPLAINT: "I cannot stop thinking about suicide." HISTORY OF PRESENT ILLNESS: Kalee is a 36-year-old female known to this unit and this news writer. She was most recently hospitalized on the behavioral services unit in January of 2017. She reports after that admission she had improved briefly and she moved into her own apartment. She states that shortly after the admission she continued to experience increased depression, hypersomnia, anhedonia, isolation. She reports often having thoughts of hanging herself or dying by driving into a big truck with her car. She states that she would not do the latter because she would not to want to harm anybody else. The patient reports her outpatient psychiatrist started venlafaxine approximately 3 weeks ago and she has not noted any change in mood. The patient has been more isolative than usual. She endorses hopelessness and helplessness, accepts of guilt. She endorses anxiety. She states that she takes the clonazepam approximately twice a day because "that is how much I need it." She states that there are days when she is not leaving the house, she generally only takes it once a day. She reports improvement in appetite since last admission due to Vyvanse. She reports loss of 20 pounds and she is satisfied with this. She denies AV hallucinations. She denies HI or . She denies dreams and nightmares. 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 She has been looking for more work. 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 She went through orientation and realized that this would not be a good fit for her due to feeling queasy about medical problems and also overwhelmed in having to entertain a person and be responsible for them. PAST PSYCHIATRIC HISTORY: The patient is a client of [facility]. Her therapist is Duncan Diane who is having many health problems; therefore, she has not been able to be in constant contact with him. She has a good rapport with her psychiatrist Dr. Latasha Robledo. This is her fourth psychiatrist hospitalization at [facility] most recently from to 02/04/17. No other psychiatric history noted. SUBSTANCE USE HISTORY: Kalee reports drinking alcohol occasionally in the past. She has a cigarette very occasionally on social occasions. She denies other substance use. FAMILY PSYCHIATRIC HISTORY: Her mother had a history of schizoaffective disorder and completed suicide. 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 CURRENT MEDICATIONS: 1. Abilify 15 mg q.h.s. 2. Vyvanse 60 mg q.a.m. 3. Wellbutrin SR 200 mg p.o. q.a.m. 4. Clonazepam one-half to one 0.5 mg b.i.d. p.r.n. anxiety 5. Venlafaxine XR 150 mg p.o. daily. ALLERGIES: AMOXICILLIN, AZITHROMYCIN and KIWI. GYNECOLOGIC HISTORY: LMP approximately 3 weeks ago. PRIMARY CARE PROVIDER: Giuseppe Manriquez, nurse practitioner, [place], [place]. SOCIAL HISTORY: The patient was raised in [place], [place]. Her parents when she was 1 years old. She lived with her mother and had no contact with her father since then. Her mother began relationship with Kalee' s stepfather when the patient was 3 years old. They when Kalee was 10 years old. The family moved to [place] 2 years later. Kalee's mother was hospitalized multiple times for schizoaffective disorder and completed suicide when the patient was 27 years old. 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 She lives alone in an apartment in [place]. She is single, not currently dating. She considers herself bisexual. She denies current domestic violence or abuse. She graduated high school and also college and has a bachelor's degree in technology. REVIEW OF SYSTEMS: The patient denies any chest pain, tachycardia or palpitations. She denies dyspnea, productive cough or hemoptysis. She denies any GI pain, nausea, vomiting, diarrhea or constipation. Denies any acute musculoskeletal pain. Denies headache or neurological complaints. PHYSICAL EXAMINATION GENERAL: The patient is a well-developed, nourished female who is lying comfortably on her bed. She denies any pain or distress. Head and face, no signs of trauma. No ecchymosis, hematoma. There is skull depression. No sinus tenderness. VITAL SIGNS: Most recent vital signs, temp 98.9; pulse 108; respirations 16; O2 saturation 100%; BP 119/75. HEENT: Eyes: PERRLA. EOMI x2. Conjunctivae clear. No nystagmus. Ears: Hearing grossly intact. Ear canals, tympanic membranes are within normal limits. Mouth: Oropharynx is within normal limits. Mucous membranes moist. NECK: Supple. Trachea midline. Neck with full ROM. CHEST: Symmetric. No tenderness to palpation. Lungs. Clear to auscultation bilaterally. Breath sounds present. CARDIOVASCULAR: Heart regular, rate and rhythm. Pulses present bilaterally in upper and lower extremities. ABDOMEN: Soft and nontender. Bowel sounds x4. NEURO: Alert and oriented x3. SKIN: Dry and warm. Color reflects adequate perfusion. MENTAL STATUS EXAM: The patient is obese, wearing her own clothing. She lies on the bed and participates fully in conversation. She is cooperative with interview and answers questions fully. She appears dysphoric with slight affect. Alert and oriented x3. Concentration is fair. Memory is 3/3. Mood is "sad." Speech is soft and mumble. Thought process is logical. Mild poverty noted. Thought content is positive for suicidal ideation. She denies AV hallucinations. She denies HI or . Her insight is good. Her judgment is fair. Her fund of knowledge is excellent. LABORATORY DATA: In the emergency department, CBC is grossly unremarkable. Chemistry is grossly unremarkable. TSH is 1.84. Urinalysis, low specific gravity, 2+ leukocyte esterase. Epithelial cells present and urine bacteria. Culture was negative. Toxicology, urine drug screen present for amphetamines which is consistent with the Vyvanse prescription. Salicylates, acetaminophen and alcohol are all negative. DIAGNOSES: [place] I: Bipolar disorder, most recent episode depressed, binge eating disorder. Autism spectrum disorder. [place] II: Borderline personality disorder by history. [place] III: Obesity. [place] IV: Stressors related to financial strain and social isolation. [place] V: 35. ASSESSMENT: Kalee is a 36-year-old female, domiciled, single and self- employed. She was referred to the emergency department after an appointment with her outpatient psychiatrist in the context of suicidal ideation with active plans. She has a history of 3 previous [place] [facility] recent was approximately a month and a half ago. She has longstanding relationship with her outpatient provider. She presents as depressed. She is agreeable to intensive psychiatric treatment and potential medication changes and coordination with outpatient providers. PLAN: Admit to adult behavioral services unit on voluntary status. Code status is full. Placed on 15 minutes checks for safety. We will encourage supportive milieu and individual sessions and psychoeducational groups. We will pursue low dose of lithium and monitor carefully due to history of toxicity. The patient reports she was inconsistent with her dosing when taking it in the past and would often take double doses when she had missed one. We will start slow taper of venlafaxine if this medication has not been effective most recently. Also, I would like to decrease polypharmacy. The patient will utilize clonazepam strictly as needed due to recent hypersomnia. Per unit policy, the patient will be allowed to use computer to contact her landlord in regards to rent payment. Discharge planning will include her outpatient providers. PIOTR CAMPBELL [id number]/CPS #: [id number] MAYTE
[2017-03-20] MEDS: Vitamin THERAPEUTIC TAB PO SCH (08:41)
[2017-03-20] MEDS: buPROPion SR TAB.SR* 100 MG PO SCH (08:42)
[2017-03-20] MEDS: Lisdexamfetamine(NF) 10 MG CAP PO SCH (08:42)
[2017-03-20] MEDS: ARIPiprazole TAB* 15 MG PO SCH (08:42)
[2017-03-20] MEDS: Lithium Carbonate TAB* 300 MG PO SCH ×2 (08:47→21:34)
[2017-03-20] MEDS: Venlafaxine EXT RELEASE CAP* 75 MG PO SCH (08:47)
--- NOTE | 2017-03-20 15:00 | PN ---
Subjective - Subjective Service Type: 77379 Hosp care 15 min low complexity Subjective: Patient reports continued depression with intrusive thoughts of suicide. She denies side effects from medication changes. She endorses low level anxiety in regards to interactions with others. She has not taken clonazepam and had forgotten about it until lead technical writer asked about frequency of use. She reports sleeping "pretty well." Objective - Appearance Appearance: Obese Dysmorphic Features: Yes Hygiene: Normal Grooming: Fairly Well Kept - Behavior Psychomotor Activities: Normal Exhibits Abnormal Movement: No - Attitude and Relatedness Attitude and Relatedness: Withdrawn Eye Contact: Fair - Speech Quality: Unpressured Latencies: Normal Quantity: Appropriate - Mood Patient's Decription of Mood: "Okay" - Affect Observed Affect: Depressed Affect Consistent with: Dysphoria - Thought Process Patient's Thought Process: Impoverished Thought Content: Yes Passive Wish, Yes Suicidal Planning - SI, No Homicidal Ideation, No Paranoid Ideation - Sensorium Experiencing Hallucinations: No, Sensorium is Clear Type of Hallucinations: Visual: No, Auditory: No, Command: No - Level of Consciousness Orientation: Yes Intact, Yes Orientated to Time, Yes Orientated to Place, Yes Orientated to Person - Impulse Control Impulse Control: Tenuous - Insight and Judgement Insight and Judgement: Good - Group Participation Particating in Group Activities: Yes - Medication Management Medication Management Adherence: Yes Assessment - Assessment Merits Inpatient Hospitalization: For Immediate Safety, For Stabilization, For Discharge Planning, Pending Safe DC Plan Inpatient DSM-IV Dx: bipolar II d/o, most recent episode depressed; binge eating d/o; autism spectrum d/o; borderline personality d/o by hx; obesity Clinical Impression: Pt is a 36yo white female with known to this unit for past hospitalizations r/t bipolar d/o. She reports depressed mood with intrusive thoughts of SI. She merits hospitalization for immediate safety and stabilization. Plan - Plan Treatment Plan: Name: SALLY DAVIS Birthdate: 1980 [id number] Continue acute intensive psychiatric treatment. Cross titrate from effexor to lithium to target suicidality and mood stabilization. Obtain lithium level and TSH in 2 days due to past hypothyroidism secondary to lithium toxicity. Decrease observation to q30min and allow staff pass. Patient may have computer privileges for discharge planning. Continued Medication Management: Different Medication Medications: Current Medications Acetaminophen (Tylenol Tab*) 650 mg PO Q4H PRN PRN Reason: PAIN or TEMP > 101 F Al Hydrox/Mg Hydrox/Simethicone (Maalox Plus*) 30 ml PO Q4H PRN PRN Reason: INDIGESTION Aripiprazole (Abilify Tab*) 15 mg PO BEDTIME [facility] Bupropion HCl (Wellbutrin Sr Tab*) 200 mg PO QAM [facility] Last Admin: 03/20/17 08:42 Dose: 200 mg Clonazepam (Klonopin Tab(*)) 0.5 mg PO BID PRN PRN Reason: ANXIETY Last Admin: 03/19/17 21:39 Dose: 0.5 mg Lisdexamfetamine Dimesylate (Vyvanse(Nf)) 60 mg PO QAM [facility] Last Admin: 03/20/17 08:42 Dose: 60 mg Clarks Carbonate (Clarks Carbonate Tab*) 150 mg PO BID [facility] Last Admin: 03/20/17 08:47 Dose: 150 mg Multivitamins (Theragran Tab*) 1 tab PO DAILY [facility] Last Admin: 03/20/17 08:41 Dose: 1 tab Venlafaxine HCl (Effexor Xr Cap*) 75 mg PO QAM [facility] Last Admin: 03/20/17 08:47 Dose: 75 mg - Discharge Plan Discharge Plan: Outpatient Follow Up Outpatient Program: [facility]
[2017-03-21] MEDS: buPROPion SR TAB.SR* 100 MG PO SCH (08:55)
[2017-03-21] MEDS: Lisdexamfetamine(NF) 10 MG CAP PO SCH (08:55)
[2017-03-21] MEDS: Lithium Carbonate TAB* 300 MG PO SCH ×2 (08:56→21:29)
[2017-03-21] MEDS: Venlafaxine EXT RELEASE CAP* 75 MG PO SCH (08:58)
[2017-03-21] MEDS: Vitamin THERAPEUTIC TAB PO SCH (08:58)
[2017-03-21] MEDS ORDERED: Influenza VAC *QUAD* 2017-18* 0.5 ML SYRINGE IM ONE (09:00)
[2017-03-21] MEDS: ARIPiprazole TAB* 15 MG PO SCH (21:29)
[2017-03-22] MEDS: Lisdexamfetamine(NF) 10 MG CAP PO SCH (08:26)
[2017-03-22] MEDS: Venlafaxine EXT RELEASE CAP* 75 MG PO SCH (08:26)
[2017-03-22] MEDS: Vitamin THERAPEUTIC TAB PO SCH (08:27)
[2017-03-22] MEDS: buPROPion SR TAB.SR* 100 MG PO SCH (08:27)
[2017-03-22] MEDS: Lithium Carbonate TAB* 300 MG PO SCH ×2 (08:27→21:12)
[2017-03-22] MEDS: clonazePAM TAB(*) 0.5 MG PO PRN (09:12)
--- NOTE | 2017-03-22 16:28 | PN ---
Subjective - Subjective Service Type: 77353 Hosp care 15 min low complexity Subjective: No change of mental status. Continues to report depressive symptoms and ongoing intrusive suicidal thoughts. In the milieu without much participation in interaction with others. Tolerating med changes well. Objective - Appearance Appearance: Obese Hygiene: Normal Grooming: Fairly Well Kept - Behavior Psychomotor Activities: Abnormal-Decreased Exhibits Abnormal Movement: No - Attitude and Relatedness Attitude and Relatedness: Appropriate Eye Contact: Fair - Speech Quality: Unpressured Latencies: Normal Quantity: Appropriate - Mood Patient's Decription of Mood: "Sad" - Affect Observed Affect: Depressed Affect Consistent with: Dysphoria - Thought Process Patient's Thought Process: Coherent, Goal Directed Thought Content: Yes Passive Wish, No Suicidal Planning, No Homicidal Ideation, No Paranoid Ideation - Sensorium Experiencing Hallucinations: No, Sensorium is Clear Type of Hallucinations: Visual: No, Auditory: No, Command: No - Level of Consciousness Level of Consciousness: Alert Orientation: Yes Intact, Yes Orientated to Time, Yes Orientated to Place, Yes Orientated to Person - Impulse Control Impulse Control: Intact - Insight and Judgement Insight and Judgement: Good - Group Participation Particating in Group Activities: No - Medication Management Medication Management Adherence: Yes Assessment - Assessment Merits Inpatient Hospitalization: For Stabilization, Pending Safe DC Plan Inpatient DSM-IV Dx: bipolar II d/o, most recent episode depressed; binge eating d/o; autism spectrum d/o; borderline personality d/o by hx; obesity Clinical Impression: Continues to be depressed with intrusive suicidal thoughts. Plan - Plan Treatment Plan: Name: SALLY DAVIS Birthdate: 1980 [id number] Continued Medication Management: Continue Outpt Medication Medications: Current Medications Acetaminophen (Tylenol Tab*) 650 mg PO Q4H PRN PRN Reason: PAIN or TEMP > 101 F Al Hydrox/Mg Hydrox/Simethicone (Maalox Plus*) 30 ml PO Q4H PRN PRN Reason: INDIGESTION Aripiprazole (Abilify Tab*) 15 mg PO BEDTIME [facility] Last Admin: 03/21/17 21:29 Dose: 15 mg Bupropion HCl (Wellbutrin Sr Tab*) 200 mg PO QAM [facility] Last Admin: 03/22/17 08:27 Dose: 200 mg Clonazepam (Klonopin Tab(*)) 0.5 mg PO BID PRN PRN Reason: ANXIETY Last Admin: 03/22/17 09:12 Dose: 0.5 mg Lisdexamfetamine Dimesylate ([facility](Nf)) [facility] Admin: 03/22/17 08:26 Dose: 60 mg [place] Carbonate ([place] Carbonate Tab*) 150 mg PO BID [facility] Last Admin: 03/22/17 08:27 Dose: 150 mg Multivitamins (Theragran Tab*) 1 tab PO DAILY [facility] Last Admin: 03/22/17 08:27 Dose: 1 tab Venlafaxine HCl (Effexor Xr Cap*) 75 mg PO QAM [facility] Last Admin: 03/22/17 08:26 Dose: 75 mg - Discharge Plan Discharge Plan: Outpatient Follow Up Outpatient Program: [facility]
[2017-03-22] MEDS: ARIPiprazole TAB* 15 MG PO SCH (21:12)
[2017-03-23] MEDS: Lithium Carbonate TAB* 300 MG PO SCH ×2 (08:13→21:20)
[2017-03-23] MEDS: Vitamin THERAPEUTIC TAB PO SCH (08:13)
[2017-03-23] MEDS: Lisdexamfetamine(NF) 10 MG CAP PO SCH (08:14)
[2017-03-23] MEDS: buPROPion SR TAB.SR* 100 MG PO SCH (08:14)
[2017-03-23] MEDS: Venlafaxine EXT RELEASE CAP* 37.5 MG PO SCH (08:49)
[2017-03-23] MEDS: clonazePAM TAB(*) 0.5 MG PO PRN (15:40)
--- NOTE | 2017-03-23 15:49 | PN ---
Subjective - Subjective Service Type: 66268 Hosp care 15 min low complexity Subjective: Patient presents as dysphoric. She reports thoughts of suicide continue "once in awhile" but less frequent. She reports improved sleep except for receiving a roommate. She agrees to continue with medication changes and to obtain labwork in the morning. Patient reports her outpatient therapist remains on medical leave. However, she has meet with interim therapist Amelia Dejesus and this was a positive experience. Objective - Appearance Appearance: Obese Dysmorphic Features: Yes Hygiene: Normal Grooming: Fairly Well Kept - Behavior Psychomotor Activities: Abnormal-Decreased Exhibits Abnormal Movement: No - Attitude and Relatedness Attitude and Relatedness: Withdrawn Eye Contact: Fair - Speech Quality: Unpressured Latencies: Normal Quantity: Appropriate - Mood Patient's Decription of Mood: "Fine" - Affect Observed Affect: Depressed Affect Consistent with: Dysphoria - Thought Process Patient's Thought Process: Coherent Thought Content: Yes Passive Wish, Yes Suicidal Planning - vague, No Homicidal Ideation, No Paranoid Ideation - Sensorium Experiencing Hallucinations: No, Sensorium is Clear Type of Hallucinations: Visual: No, Auditory: No, Command: No - Level of Consciousness Level of Consciousness: Alert Orientation: Yes Intact, Yes Orientated to Time, Yes Orientated to Place, Yes Orientated to Person - Impulse Control Impulse Control: Tenuous - Insight and Judgement Insight and Judgement: Good - Group Participation Particating in Group Activities: Yes - Medication Management Medication Management Adherence: Yes Assessment - Assessment Merits Inpatient Hospitalization: For Immediate Safety, For Stabilization, To Initiate Treatment, Consolidate Improvements, For Discharge Planning Inpatient DSM-IV Dx: bipolar II d/o, most recent episode depressed; binge eating d/o; autism spectrum d/o; borderline personality d/o by hx; obesity Clinical Impression: Pt is a 36yo white female with known to this unit for past hospitalizations r/t bipolar d/o. She reports depressed mood with intrusive thoughts of SI. She merits hospitalization for immediate safety and stabilization. Plan - Plan Treatment Plan: Name: SALLY DAVIS Birthdate: 1980 [id number] Continue acute intensive psychiatric treatment. Continue to cross titrate from effexor to lithium to target suicidality and mood stabilization. Obtain lithium level and TSH due to past hypothyroidism secondary to lithium toxicity. Continue observation q30min and allow staff pass. Patient may have computer privileges for discharge planning. Continued Medication Management: Different Medication Medications: Current Medications Acetaminophen (Tylenol Tab*) 650 mg PO Q4H PRN PRN Reason: PAIN or TEMP > 101 F Al Hydrox/Mg Hydrox/Simethicone (Maalox Plus*) 30 ml PO Q4H PRN PRN Reason: INDIGESTION Aripiprazole (Abilify Tab*) 15 mg PO BEDTIME [facility] Last Admin: 03/22/17 21:12 Dose: 15 mg Bupropion HCl (Wellbutrin Sr Tab*) 200 mg PO QAM [facility] Last Admin: 03/23/17 08:14 Dose: 200 mg Clonazepam (Klonopin Tab(*)) 0.5 mg PO BID PRN PRN Reason: ANXIETY Last Admin: 03/23/17 15:40 Dose: 0.5 mg Lisdexamfetamine Dimesylate (Vyvanse(Nf)) 60 mg PO QAM [facility] Last Admin: 03/23/17 08:14 Dose: 60 mg Chicken Carbonate (Chicken Carbonate Tab*) 300 mg PO BID [facility] Last Admin: 03/23/17 08:13 Dose: 300 mg Multivitamins (Theragran Tab*) 1 tab PO DAILY [facility] Last Admin: 03/23/17 08:13 Dose: 1 tab Venlafaxine HCl (Effexor Xr Cap*) 37.5 mg PO QAM [facility] Last Admin: 03/23/17 08:49 Dose: 37.5 mg - Discharge Plan Discharge Plan: Outpatient Follow Up Outpatient Program: [facility]
[2017-03-23] MEDS: ARIPiprazole TAB* 15 MG PO SCH (21:20)
[2017-03-24] MEDS: Vitamin THERAPEUTIC TAB PO SCH (08:14)
[2017-03-24] MEDS: Lithium Carbonate TAB* 300 MG PO SCH ×2 (08:14→20:31)
[2017-03-24] MEDS: buPROPion SR TAB.SR* 100 MG PO SCH (08:14)
[2017-03-24] MEDS: Venlafaxine EXT RELEASE CAP* 37.5 MG PO SCH (08:15)
[2017-03-24] MEDS: Lisdexamfetamine(NF) 10 MG CAP PO SCH (08:15)
[2017-03-24 08:30] LABS: HDL Cholesterol 40.2 mg/dL
[2017-03-24 08:50] LABS: Lithium 0.31 mmol/L (0.6-1.2)
[2017-03-24 09:05] LABS: TSH (Thyroid Stimulating Horm) 2.38 mcIU/mL (0.34-5.60)
[2017-03-24] MEDS: clonazePAM TAB(*) 0.5 MG PO PRN (10:12)
--- NOTE | 2017-03-24 12:15 | PN ---
Subjective - Subjective Service Type: 27488 Hosp care 25 min moderate complexity Subjective: Patient reports minimal improvement in depressed mood. She states she attempted to "go a day without" clonazepam and was significantly "on edge." She reports frequent interruptions in sleep due to dreams about her mother. She states this is typical for her and that trial of trazodone has not helped in the past. Patient is receptive to discussion of referral for ECT and states she has contemplated this. She reports her mother received ECT treatments for schizoaffective d/o. Objective - Appearance Appearance: Obese Dysmorphic Features: Yes Hygiene: Normal Grooming: Fairly Well Kept - Behavior Psychomotor Activities: Abnormal-Decreased Exhibits Abnormal Movement: No - Attitude and Relatedness Attitude and Relatedness: Superficially Cooperative Eye Contact: Fair - Speech Quality: Unpressured Latencies: Normal Quantity: Appropriate - Mood Patient's Decription of Mood: "better than when I came in" - Affect Observed Affect: Depressed Affect Consistent with: Dysphoria - Thought Process Patient's Thought Process: Coherent, Impoverished Thought Content: Yes Passive Wish, No Suicidal Planning, No Homicidal Ideation, No Paranoid Ideation - Sensorium Experiencing Hallucinations: No, Sensorium is Clear Type of Hallucinations: Visual: No, Auditory: No, Command: No - Level of Consciousness Level of Consciousness: Alert Orientation: Yes Intact, Yes Orientated to Time, Yes Orientated to Place, Yes Orientated to Person - Impulse Control Impulse Control: Tenuous - Insight and Judgement Insight and Judgement: Fair - Group Participation Particating in Group Activities: Yes - Medication Management Medication Management Adherence: Yes Assessment - Assessment Merits Inpatient Hospitalization: For Immediate Safety, For Stabilization, Consolidate Improvements, For Discharge Planning, Pending Safe DC Plan Inpatient DSM-IV Dx: bipolar II d/o, most recent episode depressed; binge eating d/o; autism spectrum d/o; borderline personality d/o by hx; obesity Clinical Impression: Pt is a 36yo white female with known to this unit for past hospitalizations r/t bipolar d/o. She reports depressed mood with intrusive thoughts of SI. She merits hospitalization for immediate safety and stabilization. She is tolerating medication changes and is receptive to potential referral for ECT. Plan - Plan Treatment Plan: Name: SALLY DAVIS Birthdate: 1980 [id number] Continue acute intensive psychiatric treatment. Continue to cross titrate from effexor to lithium to target suicidality and mood stabilization. Labs obtained and reviewed with patient. Obtain JORGE for Dr Lim and consult in regards to referral for ECT. Continue observation q30min and allow staff pass. Patient may have computer privileges for discharge planning. Continued Medication Management: Start Medication Medications: Current Medications Acetaminophen (Tylenol Tab*) 650 mg PO Q4H PRN PRN Reason: PAIN or TEMP > 101 F Al Hydrox/Mg Hydrox/Simethicone (Maalox Plus*) 30 ml PO Q4H PRN PRN Reason: INDIGESTION Aripiprazole (Abilify Tab*) 15 mg PO BEDTIME [facility] Last Admin: 03/23/17 21:20 Dose: 15 mg Bupropion HCl (Wellbutrin Sr Tab*) 200 mg PO QAM [facility] Last Admin: 03/24/17 08:14 Dose: 200 mg Clonazepam (Klonopin Tab(*)) 0.5 mg PO BID PRN PRN Reason: ANXIETY Last Admin: 03/24/17 10:12 Dose: 0.5 mg Lisdexamfetamine Dimesylate (Vyvanse(Nf)) 60 mg PO QAM [facility] Last Admin: 03/24/17 08:15 Dose: 60 mg Ox[place] Carbonate (Oxly Carbonate Tab*) 300 mg PO BID [facility] Last Admin: 03/24/17 08:14 Dose: 300 mg Multivitamins (Theragran Tab*) 1 tab PO DAILY [facility] Last Admin: 03/24/17 08:14 Dose: 1 tab DC Venlafaxine - Discharge Plan Discharge Plan: Consider Longer Term Tx Outpatient Program: [facility]
[2017-03-24] MEDS: ARIPiprazole TAB* 15 MG PO SCH (20:30)
[2017-03-25] MEDS: Lisdexamfetamine(NF) 10 MG CAP PO SCH (08:24)
[2017-03-25] MEDS: clonazePAM TAB(*) 0.5 MG PO PRN (08:24)
[2017-03-25] MEDS: Vitamin THERAPEUTIC TAB PO SCH (08:24)
[2017-03-25] MEDS: Lithium Carbonate TAB* 300 MG PO SCH ×2 (08:24→20:34)
[2017-03-25] MEDS: buPROPion SR TAB.SR* 100 MG PO SCH (08:24)
[2017-03-25] MEDS: Venlafaxine EXT RELEASE CAP* 37.5 MG PO SCH (08:25)
--- NOTE | 2017-03-25 11:06 | PN ---
[facility]: Group Therapy Note - Service Type Service Type: 92317 Group Psychotherapy - Cognitive Behavioral Group Therapy ( CBT):Patient attended CBT programming this morning and presented with flat affect that did not vary with discussion. Although responsive to direct prompts to respond to questions, patient did not engage in spontaneous conversation.
--- NOTE | 2017-03-25 12:09 | PN ---
Subjective - Subjective Service Type: 22080 Hosp care 25 min moderate complexity Subjective: Patient continues to report depressed mood and presents as dysphoric with flat affect. She is attending groups but participates minimally. She expresses hopefulness in regards to ECT treatment. Notified that referral was made and awaiting response. Patient endorses continued frequent interruptions in sleep. She reports going to bed around 1730, waking for HS meds then returning to bed until approx 0600. She states intent to try to stay awake longer in the evening. Objective - Appearance Appearance: Obese Dysmorphic Features: Yes Hygiene: Normal Grooming: Fairly Well Kept - Behavior Psychomotor Activities: Abnormal-Decreased Exhibits Abnormal Movement: Yes - Attitude and Relatedness Attitude and Relatedness: Superficially Cooperative Eye Contact: Fair - Speech Quality: Unpressured Latencies: Normal Quantity: Appropriate - Mood Patient's Decription of Mood: "Okay" - Affect Observed Affect: Depressed Affect Consistent with: Dysphoria - Thought Process Patient's Thought Process: Coherent, Impoverished Thought Content: Yes Passive Wish, No Suicidal Planning, No Homicidal Ideation, No Paranoid Ideation - Sensorium Experiencing Hallucinations: No, Sensorium is Clear Type of Hallucinations: Visual: No, Auditory: No, Command: No - Level of Consciousness Level of Consciousness: Alert Orientation: Yes Intact, Yes Orientated to Time, Yes Orientated to Place, Yes Orientated to Person - Impulse Control Impulse Control: Intact - Insight and Judgement Insight and Judgement: Fair - Group Participation Particating in Group Activities: Yes - Medication Management Medication Management Adherence: Yes Assessment - Assessment Merits Inpatient Hospitalization: For Immediate Safety, For Stabilization, To Initiate Treatment, For Discharge Planning Inpatient DSM-IV Dx: bipolar II d/o, most recent episode depressed; binge eating d/o; autism spectrum d/o; borderline personality d/o by hx; obesity Clinical Impression: Pt is a 36yo white female with known to this unit for past hospitalizations r/t bipolar d/o. She reports depressed mood with intrusive thoughts of SI. She merits hospitalization for immediate safety and stabilization. She is tolerating medication changes and is receptive to referral for ECT. Plan - Plan Treatment Plan: Name: SALLY DAVIS Birthdate: 1980 [id number] Continue acute intensive psychiatric treatment. Continue lithium to target suicidality and mood stabilization. DC venlafaxine and add mirtazapine for adjunctive antidepressant and insomnia. Referral for ECT sent to Dr Brooks. Continue observation q30min and allow staff pass. Patient may have computer privileges for discharge planning. Continued Medication Management: Different Medication Medications: Current Medications Acetaminophen (Tylenol Tab*) 650 mg PO Q4H PRN PRN Reason: PAIN or TEMP > 101 F Al Hydrox/Mg Hydrox/Simethicone (Maalox Plus*) 30 ml PO Q4H PRN PRN Reason: INDIGESTION Aripiprazole (Abilify Tab*) 15 mg PO BEDTIME [facility] Last Admin: 03/24/17 20:30 Dose: 15 mg Bupropion HCl (Wellbutrin Sr Tab*) 200 mg PO QAM [facility] Last Admin: 03/25/17 08:24 Dose: 200 mg Clonazepam (Klonopin Tab(*)) 0.5 mg PO BID PRN PRN Reason: ANXIETY Last Admin: 03/25/17 08:24 Dose: 0.5 mg Lisdexamfetamine Dimesylate (Vyvanse(Nf)) 60 mg PO QAM [facility] Last Admin: 03/25/17 08:24 Dose: 60 mg [place] Carbonate ([place] Carbonate Tab*) 300 mg PO BID [facility] Last Admin: 03/25/17 08:24 Dose: 300 mg Mirtazapine (Remeron Tab*) 7.5 mg PO BEDTIME [facility] Multivitamins (Theragran Tab*) 1 tab PO DAILY [facility] Last Admin: 03/25/17 08:24 Dose: 1 tab - Discharge Plan Discharge Plan: Consider Longer Term Tx
[2017-03-25] MEDS: ARIPiprazole TAB* 15 MG PO SCH (20:34)
[2017-03-25] MEDS: Mirtazapine TAB* 15 MG PO SCH (20:34)
[2017-03-26] MEDS: Vitamin THERAPEUTIC TAB PO SCH (08:33)
[2017-03-26] MEDS: buPROPion SR TAB.SR* 100 MG PO SCH (08:34)
[2017-03-26] MEDS: clonazePAM TAB(*) 0.5 MG PO PRN (08:34)
[2017-03-26] MEDS: Lisdexamfetamine(NF) 10 MG CAP PO SCH (08:34)
[2017-03-26] MEDS: Lithium Carbonate TAB* 300 MG PO SCH ×2 (08:34→20:31)
--- NOTE | 2017-03-26 10:20 | PN ---
Subjective - Subjective Service Type: 23196 Hosp care 15 min low complexity Subjective: Patient presents as dysphoric with flat affect. She brightens upon approach. She is attending groups with minimal participation. She reports sleeping much better last night and had less frequent interruptions. Objective - Appearance Appearance: Obese Dysmorphic Features: Yes Hygiene: Normal Grooming: Fairly Well Kept - Behavior Psychomotor Activities: Normal Exhibits Abnormal Movement: No - Attitude and Relatedness Attitude and Relatedness: Cooperative Eye Contact: Fair - Speech Quality: Unpressured Latencies: Normal Quantity: Appropriate - Mood Patient's Decription of Mood: "better" - Affect Observed Affect: Depressed Affect Consistent with: Dysphoria - Thought Process Patient's Thought Process: Coherent, Goal Directed Thought Content: Yes Passive Wish - vague, No Suicidal Planning, No Homicidal Ideation, No Paranoid Ideation - Sensorium Experiencing Hallucinations: No, Sensorium is Clear Type of Hallucinations: Visual: No, Auditory: No, Command: No - Level of Consciousness Level of Consciousness: Alert Orientation: Yes Intact, Yes Orientated to Time, Yes Orientated to Place, Yes Orientated to Person - Impulse Control Impulse Control: Tenuous - Insight and Judgement Insight and Judgement: Fair - Group Participation Particating in Group Activities: Yes - Medication Management Medication Management Adherence: Yes Assessment - Assessment Merits Inpatient Hospitalization: For Immediate Safety, For Stabilization, For Discharge Planning Inpatient DSM-IV Dx: bipolar II d/o, most recent episode depressed; binge eating d/o; autism spectrum d/o; borderline personality d/o by hx; obesity Clinical Impression: Pt is a 36yo white female with known to this unit for past hospitalizations r/t bipolar d/o. She reports depressed mood with intrusive thoughts of SI. She merits hospitalization for immediate safety and stabilization. She is tolerating medication changes and is receptive to referral for ECT. Plan - Plan Treatment Plan: Name: SALLY DAVIS Birthdate: 1980 [id number] Continue acute intensive psychiatric treatment. Continue lithium to target suicidality and mood stabilization. DC venlafaxine and add mirtazapine for adjunctive antidepressant and insomnia. Referral for ECT sent to Dr Brooks and awaiting reply. Continue observation q30min and allow staff pass. Patient may have computer privileges for discharge planning. Continued Medication Management: Different Medication Medications: Current Medications Acetaminophen (Tylenol Tab*) 650 mg PO Q4H PRN PRN Reason: PAIN or TEMP > 101 F Al Hydrox/Mg Hydrox/Simethicone (Maalox Plus*) 30 ml PO Q4H PRN PRN Reason: INDIGESTION Aripiprazole (Abilify Tab*) 15 mg PO BEDTIME [facility] Last Admin: 03/25/17 20:34 Dose: 15 mg Bupropion HCl (Wellbutrin Sr Tab*) 200 mg PO QAM [facility] Last Admin: 03/26/17 08:34 Dose: 200 mg Clonazepam (Klonopin Tab(*)) 0.5 mg PO BID PRN PRN Reason: ANXIETY Last Admin: 03/26/17 08:34 Dose: 0.5 mg Lisdexamfetamine Dimesylate (Vyvanse(Nf)) 60 mg PO QAM [facility] Last Admin: 03/26/17 08:34 Dose: 60 mg [place] Carbonate ([place] Carbonate Tab*) 300 mg PO BID [facility] Last Admin: 03/26/17 08:34 Dose: 300 mg Mirtazapine (Remeron Tab*) 7.5 mg PO BEDTIME [facility] Last Admin: 03/25/17 20:34 Dose: 7.5 mg Multivitamins (Theragran Tab*) 1 tab PO DAILY [facility] Last Admin: 03/26/17 08:33 Dose: 1 tab - Discharge Plan Discharge Plan: Outpatient Follow Up Outpatient Program: referral to ECT
[2017-03-26] MEDS: ARIPiprazole TAB* 15 MG PO SCH (20:31)
[2017-03-26] MEDS: Mirtazapine TAB* 15 MG PO SCH (20:31)
[2017-03-27 07:41] VITALS: BP 122/78
[2017-03-27] MEDS: Vitamin THERAPEUTIC TAB PO SCH (08:27)
[2017-03-27] MEDS: buPROPion SR TAB.SR* 100 MG PO SCH (08:27)
[2017-03-27] MEDS: Lithium Carbonate TAB* 300 MG PO SCH (08:27)
[2017-03-27] MEDS: clonazePAM TAB(*) 0.5 MG PO PRN (08:27)
[2017-03-27] MEDS: Lisdexamfetamine(NF) 10 MG CAP PO SCH (08:29)
--- NOTE | 2017-03-27 14:34 | PN ---
MHU: Group Therapy Note - Service Type Service Type: 82041 Group Psychotherapy - Cognitive Behavioral Group Therapy ( CBT):Patient was attentive and participatory in CBT programming this morning, and remained in good behavioral control. Patient expressed positive insights regarding relevant treatment interventions and goals.
--- NOTE | 2017-03-28 01:53 | DS ---
CC: [facility]; Dr. Robledo; Mateus Diane; Dr. Arleen Brooks at [facility] * DATE OF ADMISSION: 03/19/17 DATE OF DISCHARGE: 03/27/17 SUPERVISING PSYCHIATRIST: Dr. Nehemias Green * (dictated by PIOTR Cruz ). DISCHARGE DIAGNOSES: Bipolar disorder, severe, most recent episode depressed; binge eating disorder; autism spectrum disorder; borderline personality disorder by history and obesity. CONDITION AT THE TIME OF DISCHARGE: Stable. The patient continues to present as depressed and dysphoric with flat affect. She has been attending groups with minimal participation. She has had improvement in sleep, but also endorses hypersomnia as she does sleep early. She was agreeable to suggestion of ECT and was hopeful at the prospect of an improved outcome with this therapy. The patient has suffered with intrusive suicidal thoughts and intractable depression for the better part of this year. She was accepted to [facility] by Dr. Arleen Brooks. Transfer process was initiated this morning. MENTAL STATUS EXAM: The patient is an obese 36-year-old female, adequately groomed with dysmorphic features. Mild psychomotor retardation present. She is cooperative and pleasant. Her eye contact is fair. Her speech is unpressured. Normal latency. Quantity appropriate. The patient reports her mood is "better." She appears dysphoric. Her thought process is logical, goal directed. She reports intrusive thoughts of suicidal ideation, passive wish. She is alert and oriented x3. Her impulse control is tenuous. Her insight and and judgment are fair. She has been participating in group activities and compliant with medications. DISCHARGE INSTRUCTIONS: The patient is agreeable to transfer to higher level of care at [facility]. She will continue on the following medications until evaluated by Dr. Brooks: Justino. Medications: Abilify 50 mg p.o. q.h.s., Wellbutrin SR 200 mg p.o. q.a.m., clonazepam 0.5 mg p.o. b.i.d., p.r.n., anxiety, Vyvanse 60 mg p.o. q.a.m., [place] 300 mg p.o. b.i.d., mirtazapine 7.5 mg p.o. q.h.s., and multivitamin 1 tablet p.o. daily. B. Diet: Regular. C. Activity: Ambulation as tolerated. Tobacco cessation is not applicable. There are no current pending labs or diagnostic studies. His [place] level is not changed. So, I suggested that the lithium level is done on 03/30/17 , which is 7 days since [place] dose change. D. Followup care: The patient has been transported to [facility] via [facility] ambulance. From there, she will follow up locally at [facility] with both Dr. Robledo and Duncan Diane. HOSPITAL COURSE: A. Reason for admission: The patient was seen by her outpatient psychiatrist on 03/18/17 and voiced severe depression with intrusive thoughts of suicide. She had plans to overdose on her medications. She was agreeable to transportation to the emergency department for mental health evaluation. B. Psychiatric treatment rendered: The patient was admitted to adult behavioral services unit on voluntary status. The code status was full. She was placed on 15 minute checks for safety. She was encouraged to participate in supportive milieu, individual sessions with staff and psychoeducational groups. She was agreeable to try a low dose of [place] for suicidal ideation. We were conservative with the dosing due to a history of toxicity and thyroid impairment. She had trialed venlafaxine without change in the outpatient. This medication was slowly tapered to decrease polypharmacy. The patient was in behavioral control, decreased to 30 minute checks and allowed staff pass. She was allowed use of computer room and computer to contact her landlord in regards to rent. Throughout the stay she continued to present as dysphoric. She reported improvement in sleep, but did not have improvement in depression. This was her second hospitalization in a brief amount of time. She was last admitted in January of 2017 due to intractable symptoms. The patient was agreeable to referral for ECT therapy. She stated that her mother had had this treatment for schizoaffective disorder and depression and she was familiar with the therapy. She expressed hopefulness that this will provide an improved outcome. Transfer process was completed by medical social consultant, nursing staff, and this blog writer. The patient was discharged to ambulance at approximately 2:30 this afternoon. HOMAR MALHOTRA, PATIENT SAFETY ATTENDANT [id number]/[facility] #: [id number] [facility] HOSPITALJacky
== END 2017-03-27 14:30 | disposition short-term general hospital (02) | DRG 753 ==
LOC: ED 14:57 → BSU 03-19 00:48
PROVIDERS: ADMIT Psychiatry & Neurology Psychiatry; ATTEND Psychiatry & Neurology Psychiatry
DX: F31.4 Bipolar disorder, current episode depressed, severe, without psychotic features (principal); R45.851 Suicidal ideations; Z68.41 Body mass index [BMI] 40.0-44.9, adult; F50.81 Binge eating disorder; F84.0 Autistic disorder; F60.3 Borderline personality disorder; E66.01 Morbid (severe) obesity due to excess calories; E03.9 Hypothyroidism, unspecified; E11.9 Type 2 diabetes mellitus without complications; Z79.899 Other long term (current) drug therapy; Z81.8 Family history of other mental and behavioral disorders; Z88.1 Allergy status to other antibiotic agents; Z91.018 Allergy to other foods
CPT/HCPCS: 36415; 80053; 80061; 80178; 80307; 80320; 80329; 81003; 81015; 83036; 84443; 85025; 87086; 90686; 90853; 99222; 99231; 99232; 99238; A9270-GY; G0480

== ENCOUNTER 2018-03-08 12:18 | Inpatient (IN) | payer OTHER ==
[2018-03-08 12:49] LABS: Urine Appearance Clear; Urine Blood Negative (Negative); Urine Color Yellow; Urine Ketones Negative (Negative); Urine Protein Negative (Negative); Urine Specific Gravity 1.006 (1.010-1.030); Urine Urobilinogen Negative (Negative)
[2018-03-08 13:02] LABS: ABS Basophils 0 10^3/ul (0-0.2); ABS Eosinophils 0 10^3/ul (0-0.6); ABS Lymphocytes 1.5 10^3/ul (1.0-4.8); ABS Monocytes 0.6 10^3/ul (0-0.8); ABS Neutrophils 4.1 10^3/ul (1.5-7.7); ABS Nucleated RBC 0 10^3/ul; Eosinophil % 0.5 % (0-6); Hematocrit 42 % (35-47); Hemoglobin 14.2 g/dl (12.0-16.0); Lymphocyte % 23.3 % (25-47); Mean Corpuscular HGB Conc 34 g/dl (31-36); Mean Corpuscular Hemoglobin 31 pg (27-31); Mean Corpuscular Volume 90 fL (80-97); Mean Platelet Volume 8.9 um3 (7.4-10.4); Nucleated Red Blood Cells % 0; Platelet Count 229 10^3/ul (150-450); Red Blood Count 4.64 10^6/ul (4.00-5.40); Red Cell Distribution Width 13 % (10.5-15); White Blood Count 6.3 10^3/ul (3.5-10.8)
--- NOTE | 2018-03-08 13:15 | ED ---
Psychiatric Complaint - HPI Summary HPI Summary: Patient is a 37 y/o F brought in as a 945 from [facility], [place], operated by [facility] w/ c/o SI. EMS states that she has medications, recently went off them, and wants a re- evaluation of medications. Patient states that the last few days, she has felt more depressed and experiencing SI as well as more fears about "what is going to happen". Patient reports that she does not currently have a plan but also notes that she has had plans to find a gun in her house and blow her brains out. She notes that her moods last for "a while" but reports that more recently her moods have been shifting more rapidly. She is concerned that she does not know if she "can make it". Patient told her doctor about her feelings and she was sent here. Patient reports not sleeping well and notes PMHx of binge eating , bipolar disorder, and depression. She states she has been consuming more alcohol recently, but not to the point of blacking out. On triage, pain is denied, nothing is noted to aggravate/alleviate Sx. Home medications and allergies are reviewed. - History Of Current Complaint Chief Complaint: EDMentalHealth Hx Obtained From: Patient Hx Last Menstrual Period: 2 WEEKS AGO Onset/Duration: Lasting Days - past few days, Still Present Timing: Days - past few days Severity Currently: None Character: Depressed Aggravating Factor(s): Nothing Alleviating Factor(s): Nothing Has Suicidal: Reports: Thoughts. Denies: With A Plan - states she does not have a plan presently, but also notes that she has had thoughts of blowing her brains out with a gun. - Allergies/Home Medications Allergies/Adverse Reactions: Allergies Allergy/AdvReac Type Severity Reaction Status Date / Time MS Amoxicillin [Amoxicillin] AdvReac Intermediate Itching Verified 03/19/17 11: 49 MS Azithromycin AdvReac Intermediate GI Upset Verified 03/19/17 11:49 [From Zithromax] kiwi Allergy Severe Itching Uncoded 03/19/17 11:49 PMH/Surg Hx/FS Hx/Imm Hx Endocrine/Hematology History: Reports: Hx Thyroid Disease - related to medication. history of hypothyroid related to litihum, Other Endocrine/ Hematological Disorders - surgery on her veins left leg when she was 18 years old Denies: Hx Anticoagulant Therapy, Hx Blood Disorders, Hx Blood Transfusions, Hx Bone Marrow Disease, Hx Diabetes, Hx Systemic Lupus Erythematosus, Hx Sickle Cell Disease, Hx Anemia, Hx Unexplained Bleeding Cardiovascular History: Denies: Hx Hypertension Respiratory History: Reports: Hx Seasonal Allergies Denies: Hx Asthma, Hx Chronic Obstructive Pulmonary Disease (COPD) GI History: Denies: Hx Ulcer Sensory History: Denies: Hx Contacts or Glasses, Hx Glaucoma, Hx Hearing Aid Opthamlomology History: Denies: Hx Contacts or Glasses, Hx Glaucoma Neurological History: Comment Only: Hx Seizures - per previous H&P was evaluated with long-term EEG for seizures Psychiatric History: Reports: Hx Anxiety, Hx Depression, Hx Panic Disorder, Hx Post Traumatic Stress Disorder, Hx Inpatient Treatment, Hx Community Mental Health Tx, Hx Bipolar Disorder, Hx Suicide Attempt, Other Psychiatric Issues/ Disorders - Autism Spectrum Disorder Denies: Hx Attention Deficit Hyperactivity Disorder, Hx Eating Disorder, Hx of Violent Episodes Against Others - Cancer History Hx Chemotherapy: No - Surgical History Surgery Procedure, Year, and Place: leg vein removal (age 18) Oral surgery related to teeth grinding. - Immunization History Immunizations Up to Date: Yes Infectious Disease History: No Infectious Disease History: Denies: Hx Hepatitis, Hx Human Immunodeficiency Virus (HIV), Hx of Known/ Suspected MRSA, Hx Shingles, Hx Tuberculosis, History Other Infectious Disease, Traveled Outside the [place] in Last 30 Days - Family History Known Family History: Positive: Other - Schizophrenia, depression - Social History Alcohol Use: Daily Alcohol Amount: denies Hx Substance Use: No Substance Use Type: Reports: None Hx Tobacco Use: No Smoking Status (MU): Former Smoker Type: Cigarettes Have You Smoked in the Last Year: Yes - states occasional cigarette but none in last 3 months Review of Systems Negative: Fever - on vitals, temp is 98.9 F Psychological: Other - SI reported All Other Systems Reviewed And Are Negative: Yes Physical Exam - Summary Physical Exam Summary: VITAL SIGNS: Reviewed. GENERAL: Patient is a well-developed and nourished (MALE OR FEMALE) who is lying comfortable in the stretcher. Patient is not in any acute respiratory distress. HEAD AND FACE: No signs of trauma. No ecchymosis, hematomas or skull depressions. No sinus tenderness. EYES: PERRLA, EOMI x 2, No injected conjunctiva, no nystagmus. EARS: Hearing grossly intact. Ear canals and tympanic membranes are within normal limits. MOUTH: Oropharynx within normal limits. NECK: Supple, trachea is midline, no adenopathy, no JVD, no carotid bruit, no c- spine tenderness, neck with full ROM. CHEST: Symmetric, no tenderness at palpation LUNGS: Clear to auscultation bilaterally. No wheezing or crackles. CVS: Regular rate and rhythm, S1 and S2 present, no murmurs or gallops appreciated. ABDOMEN: Soft, non-tender. No signs of distention. No rebound no guarding, and no masses palpated. Bowel sounds are normal. EXTREMITIES: FROM in all major joints, no edema, no cyanosis or clubbing. NEURO: Alert and oriented x 3. No acute neurological deficits. Speech is normal and follows commands. SKIN: Dry and warm PSYCH: Thoughts of suicide, no plan presently according to patient. No homicidal thoughts or plan. No signs of psychosis or pressure speech. No tangential speech. Triage Information Reviewed: Yes Vital Signs On Initial Exam: Initial Vitals Temp Pulse Resp BP Pulse Ox 98.9 F 97 18 124/80 97 03/08/18 12:34 03/08/18 12:34 03/08/18 12:34 03/08/18 12:34 03/08/18 12:34 Vital Signs Reviewed: Yes Diagnostics - Vital Signs Vital Signs Temp Pulse Resp BP Pulse Ox 03/08/18 12:34 98.9 F 97 18 124/80 97 - Laboratory Lab Results: Lab Results 03/08/18 03/08/18 03/08/18 Range/Units 12:24 12:24 12:41 WBC 6.3 (3.5-10.8) 10^3/ul RBC 4.64 (4.00-5.40) 10^6/ul Hgb 14.2 (12.0-16.0) g/dl Hct 42 (35-47) % MCV 90 (80-97) fL MCH 31 (27-31) pg MCHC 34 (31-36) g/dl RDW 13 (10.5-15) % Plt Count 229 (150-450) 10^3/ul MPV 8.9 (7.4-10.4) um3 Neut % (Auto) 65.5 (38-83) % Lymph % (Auto) 23.3 L (25-47) % [place] % (Auto) 10.0 H (0-7) % Eos % (Auto) 0.5 (0-6) % Baso % (Auto) 0.7 (0-2) % Absolute Neuts (auto) 4.1 (1.5-7.7) 10^3/ul Absolute Lymphs (auto) 1.5 (1.0-4.8) 10^3/ul Absolute Monos (auto) 0.6 (0-0.8) 10^3/ul Absolute Eos (auto) 0 (0-0.6) 10^3/ul Absolute Basos (auto) 0 (0-0.2) 10^3/ul Absolute Nucleated RBC 0 10^3/ul Nucleated RBC % 0 Urine Color Yellow Urine Appearance Clear Urine pH 8.0 (5-9) Ur Specific [place] 1.006 L (1.010-1.030) Urine Protein Negative (Negative) Urine Ketones Negative (Negative) Urine Blood Negative (Negative) Urine Nitrate Negative (Negative) Urine Bilirubin Negative (Negative) Urine Urobilinogen Negative (Negative) Ur Leukocyte Esterase Negative (Negative) Urine Glucose Negative (Negative) Urine Opiates Screen None detected (None Detect) Ur Barbiturates Screen None detected (None Detect) Ur Phencyclidine Scrn None detected (None Detect) Ur Amphetamines Screen None detected (None Detect) U Benzodiazepines Scrn None detected (None Detect) Urine Cocaine Screen None detected (None Detect) U Cannabinoids Screen None detected (None Detect) Result Diagrams: 03/08/18 12:41 03/08/18 12:41 Lab Statement: Any lab studies that have been ordered have been reviewed, and results considered in the medical decision making process. Re-Evaluation - Re-Evaluation First Eval Re-Evaluation Time: 13:13 Comment: Patient was medically cleared for MHE. Course/Dx - Course Assessment/Plan: Patient is a 37-year-old female who presents to the emergency room with suicidal or thoughts and plan. Patient has history of bipolar disorder and she is not taking her medications. Blood work without any significant abnormality. The patient is medically clear. Patient is awaiting for mental health evaluation. Patient's case was discussed with Dr. Boston at 17:53. Patient will be admitted to [facility] [place] w/ Dx of bipolar disorder. - Differential Dx/Clinical Impression Differential Diagnosis/HQI/PQRI: Positive: Anxiety, Depression, Suicidal Ideation Provider Diagnosis: Bipolar disorder - Physician Notifications Discussed Care Of Patient With: Sanjeev Boston Time Discussed With Above Provider: 17:53 Instructed by Provider To: Other - Patient's case was discussed with Dr. Boston at 17:53. Patient will be admitted to [facility] [place] w/ Dx of bipolar disorder. Discharge - Sign-Out/Discharge Documenting (check all that apply): Patient Departure - admit - Discharge Plan Condition: Fair Disposition: PSYCHIATRIC FACILITY[place] [place] - Billing Disposition and Condition Condition: FAIR Disposition: Psychiatric Facility [facility] [place] - Attestation Statements Document Initiated by Scribe: Yes Documenting Scribe: Ari Nascimento Provider For Whom [employer] is Documenting (Include Credential): Hitesh Yang MD Scribe Attestation: IAri , scribed for Hitesh Yang MD on 03/09/18 at 0832. Scribe Documentation Reviewed: Yes Provider Attestation: The documentation as recorded by the Ari guerrero accurately reflects the service I personally performed and the decisions made by me, Hitesh Yang MD
[2018-03-08 13:21] LABS: EGFR Non-African American 84.7 (>60)
[2018-03-08] MEDS ORDERED: Acetaminophen TAB* 325 MG PO PRN (22:05)
[2018-03-08] MEDS ORDERED: Al Hydrox/Mg Hydrox/Simet LIQ* 30 ML UDC PO PRN (22:05)
[2018-03-09] MEDS: Vitamin THERAPEUTIC TAB PO SCH (09:39)
[2018-03-09] MEDS: Naltrexone TAB* 50 MG TAB PO SCH (12:42)
[2018-03-09] MEDS: BuPROPion XL* 150 MG TAB.XL PO SCH (12:42)
[2018-03-09] MEDS ORDERED: ARIPiprazole TAB* 5 MG PO SCH (21:00)
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
[2018-03-10] MEDS: BuPROPion XL* 150 MG TAB.XL PO SCH (08:50)
[2018-03-10] MEDS: Naltrexone TAB* 50 MG TAB PO SCH (08:50)
[2018-03-10] MEDS: Vitamin THERAPEUTIC TAB PO SCH (08:50)
[2018-03-10] MEDS: clonazePAM TAB(*) 0.5 MG PO PRN (14:33)
--- NOTE | 2018-03-10 16:27 | PN ---
MHU: Group Therapy Note - Service Type Service Type: 15160 Group Psychotherapy - Medication Education Group: Patient was attentive and participatory in group, and remained in good behavioral control. Patient expressed positive insights regarding relevant treatment interventions. Patient stated understanding of material discussed and had appropriate questions.
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
[2018-03-10] MEDS: ARIPiprazole TAB* 5 MG PO SCH (21:02)
[2018-03-10] MEDS: diPHENhydraMINE PO* 50 MG PO PRN (21:02)
[2018-03-11] MEDS: Naltrexone TAB* 50 MG TAB PO SCH (09:26)
[2018-03-11] MEDS: Vitamin THERAPEUTIC TAB PO SCH (09:26)
[2018-03-11] MEDS: BuPROPion XL* 150 MG TAB.XL PO SCH (09:26)
[2018-03-11] MEDS ORDERED: Zolpidem TAB* 5 MG PO PRN (15:24)
[2018-03-11] MEDS: clonazePAM TAB(*) 0.5 MG PO PRN ×2 (15:30→23:55)
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
[2018-03-11] MEDS: ARIPiprazole TAB* 5 MG PO SCH (21:07)
[2018-03-11] MEDS: diPHENhydraMINE PO* 50 MG PO PRN (23:54)
[2018-03-12] MEDS: BuPROPion XL* 150 MG TAB.XL PO SCH ×2 (09:42→10:03)
[2018-03-12] MEDS: Naltrexone TAB* 50 MG TAB PO SCH (09:42)
[2018-03-12] MEDS: Vitamin THERAPEUTIC TAB PO SCH (09:42)
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
[2018-03-12] MEDS: clonazePAM TAB(*) 0.5 MG PO PRN (15:48)
[2018-03-12] MEDS: clonazePAM TAB(*) 0.5 MG PO SCH ×2 (15:58→21:17)
[2018-03-12] MEDS: ARIPiprazole TAB* 5 MG PO SCH (21:17)
[2018-03-12] MEDS: Zolpidem TAB* 5 MG PO PRN (21:18)
[2018-03-13] MEDS: Vitamin THERAPEUTIC TAB PO SCH (09:06)
[2018-03-13] MEDS: Naltrexone TAB* 50 MG TAB PO SCH (09:06)
[2018-03-13] MEDS: BuPROPion XL* 150 MG TAB.XL PO SCH (09:06)
[2018-03-13] MEDS: clonazePAM TAB(*) 0.5 MG PO SCH ×3 (09:06→22:04)
[2018-03-13] MEDS: Zolpidem TAB* 5 MG PO PRN (22:00)
[2018-03-13] MEDS: ARIPiprazole TAB* 5 MG PO SCH (22:04)
[2018-03-14] MEDS: Vitamin THERAPEUTIC TAB PO SCH (08:54)
[2018-03-14] MEDS: clonazePAM TAB(*) 0.5 MG PO SCH ×3 (08:54→21:24)
[2018-03-14] MEDS: BuPROPion XL* 150 MG TAB.XL PO SCH (08:54)
[2018-03-14] MEDS: Naltrexone TAB* 50 MG TAB PO SCH (08:54)
[2018-03-14] MEDS: ARIPiprazole TAB* 5 MG PO SCH (21:24)
[2018-03-15] MEDS: Naltrexone TAB* 50 MG TAB PO SCH (08:55)
[2018-03-15] MEDS: clonazePAM TAB(*) 0.5 MG PO SCH ×3 (08:55→20:26)
[2018-03-15] MEDS: Vitamin THERAPEUTIC TAB PO SCH (08:55)
[2018-03-15] MEDS: BuPROPion XL* 150 MG TAB.XL PO SCH (08:56)
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
[2018-03-15] MEDS: ARIPiprazole TAB* 5 MG PO SCH (20:26)
[2018-03-15] MEDS ORDERED: QUEtiapine TAB* 25 MG PO SCH (21:00)
[2018-03-16] MEDS: clonazePAM TAB(*) 0.5 MG PO SCH (09:03)
[2018-03-16] MEDS: BuPROPion XL* 150 MG TAB.XL PO SCH (09:04)
[2018-03-16] MEDS: Vitamin THERAPEUTIC TAB PO SCH (09:04)
[2018-03-16] MEDS: Naltrexone TAB* 50 MG TAB PO SCH (09:04)
[2018-03-16] MEDS ORDERED: Analgesic BALM* 114 GM TOPICAL PRN (13:57)
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
[2018-03-16] MEDS: ARIPiprazole TAB* 5 MG PO SCH (20:23)
[2018-03-16] MEDS: QUEtiapine TAB* 25 MG PO SCH (20:23)
[2018-03-16] MEDS: clonazePAM TAB(*) 0.5 MG PO PRN (20:27)
[2018-03-17] MEDS: BuPROPion XL* 150 MG TAB.XL PO SCH (09:35)
[2018-03-17] MEDS: Naltrexone TAB* 50 MG TAB PO SCH (09:36)
[2018-03-17] MEDS: Vitamin THERAPEUTIC TAB PO SCH (09:36)
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
--- NOTE | 2018-03-17 16:44 | PN ---
MHU: Group Therapy Note - Service Type Service Type: [id number] Group Psychotherapy - Medication Education Group: Patient was attentive and participatory in group, and remained in good behavioral control. Patient expressed positive insights regarding relevant treatment interventions. Patient stated understanding of material discussed and had appropriate questions.
[2018-03-17] MEDS: ARIPiprazole TAB* 5 MG PO SCH (21:22)
[2018-03-17] MEDS: QUEtiapine TAB* 25 MG PO SCH (21:22)
[2018-03-17] MEDS: Benztropine TAB* 1 MG PO SCH (21:23)
[2018-03-17] MEDS: clonazePAM TAB(*) 0.5 MG PO PRN (21:25)
[2018-03-18] MEDS: Benztropine TAB* 1 MG PO SCH ×2 (09:23→21:49)
[2018-03-18] MEDS: Vitamin THERAPEUTIC TAB PO SCH (09:23)
[2018-03-18] MEDS: Naltrexone TAB* 50 MG TAB PO SCH (09:24)
[2018-03-18] MEDS: BuPROPion XL* 150 MG TAB.XL PO SCH (09:24)
[2018-03-18] MEDS: clonazePAM TAB(*) 0.5 MG PO PRN ×2 (15:30→21:47)
[2018-03-18] MEDS: ARIPiprazole TAB* 5 MG PO SCH (21:45)
[2018-03-18] MEDS: QUEtiapine TAB* 25 MG PO SCH (21:45)
[2018-03-19] MEDS: BuPROPion XL* 150 MG TAB.XL PO SCH (08:50)
[2018-03-19] MEDS: Naltrexone TAB* 50 MG TAB PO SCH (08:51)
[2018-03-19] MEDS: Vitamin THERAPEUTIC TAB PO SCH (08:51)
[2018-03-19] MEDS: Benztropine TAB* 1 MG PO SCH ×2 (08:51→20:53)
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
[2018-03-19] MEDS: ARIPiprazole TAB* 5 MG PO SCH (20:52)
[2018-03-19] MEDS: QUEtiapine TAB* 25 MG PO SCH (20:53)
[2018-03-20] MEDS: BuPROPion XL* 150 MG TAB.XL PO SCH (08:59)
[2018-03-20] MEDS: Vitamin THERAPEUTIC TAB PO SCH (08:59)
[2018-03-20] MEDS: Benztropine TAB* 1 MG PO SCH ×2 (08:59→20:55)
[2018-03-20] MEDS: Naltrexone TAB* 50 MG TAB PO SCH (08:59)
[2018-03-20] MEDS: clonazePAM TAB(*) 0.5 MG PO PRN ×2 (17:01→20:57)
[2018-03-20] MEDS: QUEtiapine TAB* 25 MG PO SCH (20:55)
[2018-03-20] MEDS: ARIPiprazole TAB* 5 MG PO SCH (20:55)
[2018-03-21] MEDS: Naltrexone TAB* 50 MG TAB PO SCH (09:02)
[2018-03-21] MEDS: Benztropine TAB* 1 MG PO SCH ×2 (09:02→20:33)
[2018-03-21] MEDS: BuPROPion XL* 150 MG TAB.XL PO SCH (09:02)
[2018-03-21] MEDS: Vitamin THERAPEUTIC TAB PO SCH (09:03)
[2018-03-21] MEDS: QUEtiapine TAB* 25 MG PO SCH (20:34)
[2018-03-21] MEDS: ARIPiprazole TAB* 5 MG PO SCH (20:35)
[2018-03-21] MEDS: clonazePAM TAB(*) 0.5 MG PO PRN (20:39)
[2018-03-22 08:23] VITALS: BP 106/67
[2018-03-22] MEDS: clonazePAM TAB(*) 0.5 MG PO PRN (09:02)
[2018-03-22] MEDS: Vitamin THERAPEUTIC TAB PO SCH (09:03)
[2018-03-22] MEDS: Naltrexone TAB* 50 MG TAB PO SCH (09:03)
[2018-03-22] MEDS: BuPROPion XL* 150 MG TAB.XL PO SCH (09:03)
[2018-03-22] MEDS: Benztropine TAB* 1 MG PO SCH (09:04)
[2018-03-22] MEDS ORDERED: Benztropine TAB* 1 MG PO PRN (11:10)
--- NOTE | 2018-03-22 13:59 | PN ---
MHU: Group Therapy Note - Service Type Service Type: [id number] Group Psychotherapy - Cognitive Behavioral Group Therapy ( CBT):Patient was attentive and participatory in CBT programming this morning, and remained in good behavioral control. Patient expressed positive insights regarding relevant treatment interventions and goals.
== END 2018-03-22 15:05 | disposition home or self-care (01) | DRG 753 ==
LOC: ED 12:18 → BSU 20:30
PROVIDERS: ADMIT Psychiatry & Neurology Psychiatry; ATTEND Psychiatry & Neurology Psychiatry
DX: F31.81 Bipolar II disorder (principal); R45.851 Suicidal ideations; Z68.42 Body mass index [BMI] 45.0-49.9, adult; E66.9 Obesity, unspecified; E03.9 Hypothyroidism, unspecified; E11.9 Type 2 diabetes mellitus without complications; F60.3 Borderline personality disorder; F84.0 Autistic disorder; F50.81 Binge eating disorder; Z79.899 Other long term (current) drug therapy; Z81.8 Family history of other mental and behavioral disorders
CPT/HCPCS: 36415; 80053; 80061; 80307; 80320; 80329; 81003; 83036; 84443; 85025; 86703; 90853; 99222; 99231; 99232; 99238; 99283; A9270-GY; G0480

== ENCOUNTER 2018-06-03 15:11 | Inpatient (IN) | payer OTHER ==
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
[2018-06-03 16:12] LABS: Barbiturates Urine Screen None Detected (None Detect); Benzodiazepine Urine Screen None Detected (None Detect); Urine Cannabinoids Screen None Detected (None Detect)
[2018-06-03 16:23] LABS: ABS Basophils 0 10^3/ul (0-0.2); ABS Eosinophils 0.1 10^3/ul (0-0.6); ABS Lymphocytes 1.6 10^3/ul (1.0-4.8); ABS Monocytes 0.6 10^3/ul (0-0.8); ABS Neutrophils 4.4 10^3/ul (1.5-7.7); ABS Nucleated RBC 0 10^3/ul; Eosinophil % 1.2 %; Hematocrit 41 % (35-47); Hemoglobin 13.8 g/dl (12.0-16.0); Lymphocyte % 23.5 %; Mean Corpuscular HGB Conc 34 g/dl (31-36); Mean Corpuscular Hemoglobin 30 pg (27-31); Mean Corpuscular Volume 90 fL (80-97); Mean Platelet Volume 8.5 fL (7.4-10.4); Nucleated Red Blood Cells % 0.1; Platelet Count 225 10^3/ul (150-450); Red Blood Count 4.57 10^6/ul (4.00-5.40); Red Cell Distribution Width 14 % (10.5-15); White Blood Count 6.7 10^3/ul (3.5-10.8)
[2018-06-03 16:31] LABS: Urine Appearance Clear; Urine Bacteria 1+ (Absent); Urine Bilirubin Negative (Negative); Urine Blood 2+ (Negative); Urine Color Straw; Urine Glucose Negative (Negative); Urine Ketones Negative (Negative); Urine Nitrite Negative (Negative); Urine Protein Negative (Negative); Urine Red Blood Cell Absent (Absent); Urine Specific Gravity 1.005 (1.010-1.030); Urine Urobilinogen Negative (Negative); Urine White Blood Cell Trace(0-5/hpf) (Absent)
[2018-06-03 16:45] LABS: ALT 16 U/L (7-52); AST 15 U/L (13-39); Albumin 4.1 g/dL (3.2-5.2); Albumin/Globulin Ratio 1.3 (1-3); Alkaline Phosphatase 46 U/L (34-104); Anion Gap 6 mmol/L (2-11); BUN/Creatinine Ratio 18.5 (8-20); Blood Urea Nitrogen 17 mg/dL (6-24); CO2 Carbon Dioxide 28 mmol/L (22-32); Calcium 9.4 mg/dL (8.6-10.3); Chloride 104 mmol/L (101-111); EGFR Non-African American 67.6 (>60); Globulin 3.2 g/dL (2-4); Glucose 140 mg/dL (70-100); Potassium 4.4 mmol/L (3.5-5.0); Sodium 138 mmol/L (135-145); Total Protein 7.3 g/dL (6.4-8.9)
[2018-06-03 16:56] LABS: Acetaminophen < 15 mcg/mL; Alcohol < 10 mg/dL (<10); Salicylate < 2.50 mg/dL (<30)
[2018-06-03 17:11] LABS: TSH (Thyroid Stimulating Horm) 3.53 mcIU/mL (0.34-5.60)
[2018-06-03] MEDS ORDERED: Ibuprofen TAB* 800 MG PO ONE (19:28)
[2018-06-04] MEDS ORDERED: Al Hydrox/Mg Hydrox/Simet LIQ* 30 ML UDC PO PRN (01:46)
[2018-06-04] MEDS ORDERED: Acetaminophen TAB* 325 MG PO PRN (01:46)
[2018-06-04] MEDS: BuPROPion XL* 300 MG TAB.XL PO SCH (08:24)
[2018-06-04] MEDS: Vitamin THERAPEUTIC TAB PO SCH (08:24)
[2018-06-04] MEDS: clonazePAM TAB(*) 0.5 MG PO PRN (08:24)
[2018-06-04] MEDS ORDERED: Naltrexone TAB* 50 MG TAB PO SCH (09:00)
[2018-06-04] MEDS ORDERED: Prazosin CAP* 1 MG PO SCH ×2 (09:00→21:00)
[2018-06-04] MEDS: QUEtiapine TAB* 25 MG PO SCH (21:49)
[2018-06-04] MEDS: Prazosin CAP* 1 MG PO SCH ×2 (21:49→22:04)
--- NOTE | 2018-06-04 23:59 | HP ---
HISTORY AND PHYSICAL: DATE OF ADMISSION: 06/03/18 PRIMARY CARE PROVIDER: None. SUPERVISING PSYCHIATRIST: Nehemias Green MD * (DICTATED BY HOMAR MALHOTRA NP) JUSTIFICATION FOR ADMISSION: The patient presented to the emergency department via 9.45 after an appointment with her therapist. She endorses intrusive images of suicide and increased depressive symptoms. The patient merits hospitalization for immediate safety and stabilization. CHIEF COMPLAINT: "I don't know what to do." HISTORY OF PRESENT ILLNESS: The patient reports worsening mood, anhedonia, decreased energy, and decreased motivation for the past 1 to 2 months. She reports an increase in using alcohol to help with sleep and edgy, irritable mood , but stopped doing that approximately a week ago. She states she is also experiencing racing thoughts and intrusive images of suicide. She states that she has thoughts of wanting to punch the neighbor at times, when his TV is too loud. She denies desire to harm anyone and reports that these thoughts and images are distressing to her. She states hypersomnia, going to bed as early as 5 p.m. and waking up around 6 or 6:30. She reports bad dreams during this time as well. She denies psychosocial stressors. She has housing through [facility] and reports a long-distant relationship with a man named Pasha in [place] is going well and he is supportive. PAST PSYCHIATRIC HISTORY: The patient is known to this unit and to this bond underwriter due to previous admissions. She has well-documented history of bipolar disorder , autism spectrum disorder, and binge eating disorder. She is a client of [facility]. Her therapist is Duncan Howell and her outpatient psychiatrist is Dr. Latasha Robledo. This is her 6th psychiatric hospitalization at [facility]; her most recent was in February of this year. SUBSTANCE USE HISTORY: Kalee reports drinking alcohol occasionally in the past, recent binge drinking, but not for 1 week. She has a cigarette very occasionally on social occasions. She denies other substances. FAMILY PSYCHIATRIC HISTORY: Significant for her mother with schizoaffective disorder and completed suicide approximately 10 years ago. 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 CURRENT MEDICATIONS: Include, 1. Aripiprazole Maintena, which is due on 06/09/18. 2. Bupropion XL 300 mg daily. 3. Clonazepam 0.5 mg p.o. b.i.d. p.r.n. anxiety. 4. Quetiapine 75 mg p.o. at bedtime. 5. Prazosin 1 mg p.o. q.h.s. 6. Naltrexone 50 mg p.o. daily; the patient reports she is not taking this. ALLERGIES: AMOXICILLIN, AZITHROMYCIN, KIWI. SOCIAL HISTORY: The patient was raised in [place], [place]. Her parents when she was 1 years old. She lived with her mother and had no contact with her father since then. Her mother began a relationship with Kalee's now stepfather when she was 3 years old. They when Kalee was 10. The family moved to [place] 2 years later. Kalee's mother was hospitalized multiple times with schizoaffective disorder and completed suicide when Kalee was 27 years old. 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 She graduated at high school and college with a bachelor's degree in technology. REVIEW OF SYSTEMS: Constitutional: Negative. No fever, chills, or fatigue. ENT: Negative. Cardiovascular: Negative. Denies chest pain or palpitations. Respiratory: Negative. Denies shortness of breath or cough. Genitourinary: Negative. Musculoskeletal: Negative. Neurological: Negative. PHYSICAL EXAMINATION The patient denies offer of physical examination. She was examined in the emergency department. For further data, please see ED provider report. VITAL SIGNS: T 97.2, P 82, respiration rate 18, O2 saturation 100%, BP 148/81. MENTAL STATUS EXAM: The patient is obese, wearing her own clothing. She sits on bed with covers up to her waist and answers questions fully. Her posture is slumped, her head is down. She is dysphoric with full range of affect. Alert and oriented x3. Concentration is fair. Memory is 3/3. Mood is sad. Speech is soft and articulate. Thought process is logical, goal directed. Thought content is positive for passive wish, suicidal ideation. She denies auditory or visual hallucinations. She denies HI or . Her insight is good and that she is willing to come to the psychiatric unit on voluntary status for stabilization. Her judgment is fair. Fund of knowledge is excellent. LABORATORY DATA: CBC unremarkable. Chemistry within normal limits. Hemoglobin A1c and lipids were done in February and noted to be normal. Urinalysis, 2+ blood. Toxicology, negative for salicylates, acetaminophen, or alcohol, and her urine drug screen is negative. DIAGNOSES: 1. Bipolar 2 disorder. 2. Binge eating disorder. 3. Autism spectrum disorder. ASSESSMENT: Kalee is a 38-year-old female, domiciled, single and self- employed. She was referred to the emergency department after an appointment with her outpatient therapist due to intrusive images of suicide. The patient has exhibited symptoms of depression increasing in the past 1 to 2 months. She was binge drinking alcohol, but states that she has not done this for the past week. She reports significant binge eating and has done well with Vyvanse in the past. PLAN: The patient is admitted to adult behavioral services unit on voluntary status. Code status is full. She is placed on 15-minute checks for her safety and this can be decreased to 30-minute observation. We will encourage supportive milieu, individual sessions with staff, and psychoeducational groups. The patient is not yet due for her Abilify Maintena injection. We will continue bupropion and restart Vyvanse for binge eating disorder. We will increase prazosin to 2 mg and continue to titrate for efficacy. The patient states that she has "happy lamp" in storage and it is recommended to use this after hospitalization. Estimated length of stay is 5 to 7 days. Discharge planning will include her outpatient providers. HOMAR MALHOTRA, JUAN M [id number]/[facility]PS #: [id number] MAYTE
[2018-06-05 07:48] LABS: HDL Cholesterol 46.9 mg/dL
[2018-06-05] MEDS: Vitamin THERAPEUTIC TAB PO SCH (08:40)
[2018-06-05] MEDS: Lisdexamfetamine(NF) 10 MG CAP PO SCH (08:40)
[2018-06-05] MEDS: BuPROPion XL* 300 MG TAB.XL PO SCH (08:40)
[2018-06-05] MEDS: clonazePAM TAB(*) 0.5 MG PO PRN (15:12)
[2018-06-05] MEDS: Prazosin CAP* 1 MG PO SCH (19:50)
[2018-06-05] MEDS: QUEtiapine TAB* 25 MG PO SCH (20:22)
[2018-06-06] MEDS: Lisdexamfetamine(NF) 10 MG CAP PO SCH (08:43)
[2018-06-06] MEDS: BuPROPion XL* 300 MG TAB.XL PO SCH (08:43)
[2018-06-06] MEDS: Vitamin THERAPEUTIC TAB PO SCH (08:43)
[2018-06-06] MEDS: clonazePAM TAB(*) 0.5 MG PO PRN ×2 (12:53→17:43)
--- NOTE | 2018-06-06 13:53 | PN ---
Subjective - Subjective Date of Service: 06/06/18 Service Type: 99526 Hosp care 15 min low complexity Subjective: Sally is seen in weekend coverage for NPP, Mariaa Sánchez. The patient is very happy to be on Vyvansedillon at the improvements she's noted in her cognition and social functioning. She denies SI and has no significant complaints at this time. Objective - Appearance Appearance: Well Developed/Nourished Dysmorphic Features: No Hygiene: Normal Grooming: Well Kept - Behavior Psychomotor Activities: Normal Exhibits Abnormal Movement: No - Attitude and Relatedness Attitude and Relatedness: Cooperative Eye Contact: Good - Speech Quality: Unpressured Latencies: Normal Quantity: Appropriate - Mood Patient's Decription of Mood: "Good" - Affect Observed Affect: Good Affect Consistent with: Euthymia - Thought Process Patient's Thought Process: Coherent Thought Content: No Passive Wish, No Suicidal Planning, No Homicidal Ideation, No Paranoid Ideation - Sensorium Experiencing Hallucinations: No, Sensorium is Clear Type of Hallucinations: Visual: No, Auditory: No, Command: No - Level of Consciousness Level of Consciousness: Alert Orientation: Yes Intact, Yes Orientated to Time, Yes Orientated to Place, Yes Orientated to Person - Impulse Control Impulse Control: Tenuous - Insight and Judgement Insight and Judgement: Fair - Group Participation Particating in Group Activities: Yes - Medication Management Medication Management Adherence: Yes Assessment - Assessment Merits Inpatient Hospitalization: Consolidate Improvements, Pending Safe DC Plan Inpatient DSM-V Dx: F31.81 Clinical Impression: 38 y.o. white female with histories of bipolarity, autism spectrum disorder and personality pathology admitted on a voluntary basis due to intrusive thoughts of self harm and depressive symptoms. MHU: Problem List - Patient Problems (1) Bipolar 2 disorder Current Visit: Yes Status: Acute Code(s): F31.81 - BIPOLAR II DISORDER SNOMED Code(s): 10494492 Plan - Plan Treatment Plan: Name: SALLY DAVIS Birthdate: 1980 [id number] The patient is on a regimen of aripiprazole JEONG injectable (next 06/09), bupropion, clonazepam, quetiapine, prazosin and now Vyvanse. Continue to treat inpatient. Continued Medication Management: Continue Outpt Medication Medications: Current Medications Acetaminophen (Tylenol Tab*) 650 mg PO Q4H PRN PRN Reason: PAIN or TEMP > 101 F Al Hydrox/Mg Hydrox/Simethicone (Maalox Plus*) 30 ml PO Q4H PRN PRN Reason: INDIGESTION Bupropion HCl (Bupropion Xl*) 300 mg PO DAILY [facility] Last Admin: 06/06/18 08:43 Dose: 300 mg Clonazepam (Klonopin Tab(*)) 0.5 mg PO BID PRN PRN Reason: ANXIETY/AGITATION Last Admin: 06/06/18 12:53 Dose: 0.5 mg Lisdexamfetamine Dimesylate (Vyvanse(Nf)) 20 mg PO DAILY [facility] Last Admin: 06/06/18 08:43 Dose: 20 mg Multivitamins (Theragran Tab*) 1 tab PO DAILY [facility] Last Admin: 06/06/18 08:43 Dose: 1 tab Prazosin HCl (Minipress Cap*) 2 mg PO BEDTIME [facility] Last Admin: 06/05/18 19:50 Dose: 2 mg Quetiapine Fumarate (Seroquel Tab*) 75 mg PO BEDTIME [facility] Last Admin: 06/05/18 20:22 Dose: Not Given - Discharge Plan Discharge Plan: Inpatient Hospitalization Lab Results - Lab Results Lab Results: 06/03/18 06/03/18 06/03/18 15:44 15:44 16:10 WBC 6.7 RBC 4.57 Hgb 13.8 Hct 41 MCV 90 MCH 30 MCHC 34 RDW 14 Plt Count 225 MPV 8.5 Neut % (Auto) 65.3 Lymph % (Auto) 23.5 [place] % (Auto) 9.4 Eos % (Auto) 1.2 Baso % (Auto) 0.6 Absolute Neuts (auto) 4.4 Absolute Lymphs (auto) 1.6 Absolute Monos (auto) 0.6 Absolute Eos (auto) 0.1 Absolute Basos (auto) 0 Absolute Nucleated RBC 0 Nucleated RBC % 0.1 Sodium Potassium Chloride Carbon Dioxide Anion Gap BUN Creatinine Est GFR ( Amer) Est GFR (Non-Af Amer) BUN/Creatinine Ratio Glucose Hemoglobin A1c Calcium Total Bilirubin AST ALT Alkaline Phosphatase Total Protein Albumin Globulin Albumin/Globulin Ratio Triglycerides Cholesterol LDL Cholesterol HDL Cholesterol TSH Urine Color Straw Urine Appearance Clear Urine pH 5.0 Ur Specific [place] 1.005 L Urine Protein Negative Urine Ketones Negative Urine Blood 2+ A Urine Nitrate Negative Urine Bilirubin Negative Urine Urobilinogen Negative Ur Leukocyte Esterase Negative Urine WBC (Auto) Trace(0-5/hpf) Urine RBC (Auto) Absent Urine Bacteria 1+ A Urine Glucose Negative Salicylates Urine Opiates Screen None detected Acetaminophen Ur Barbiturates Screen None detected Ur Phencyclidine Scrn None detected Ur Amphetamines Screen None detected U Benzodiazepines Scrn None detected Urine Cocaine Screen None detected U Cannabinoids Screen None detected Serum Alcohol 06/03/18 06/05/18 06/05/18 16:10 07:11 07:11 WBC RBC Hgb Hct MCV MCH MCHC RDW Plt Count MPV Neut % (Auto) Lymph % (Auto) [place] % (Auto) Eos % (Auto) Baso % (Auto) Absolute Neuts (auto) Absolute Lymphs (auto) Absolute Monos (auto) Absolute Eos (auto) Absolute Basos (auto) Absolute Nucleated RBC Nucleated RBC % Sodium 138 Potassium 4.4 Chloride 104 Carbon Dioxide 28 Anion Gap 6 BUN 17 Creatinine 0.92 Est GFR ( Amer) 81.8 Est GFR (Non-Af Amer) 67.6 BUN/Creatinine Ratio 18.5 Glucose 140 H Hemoglobin A1c 4.5 Calcium 9.4 Total Bilirubin 0.30 AST 15 ALT 16 Alkaline Phosphatase 46 Total Protein 7.3 Albumin 4.1 Globulin 3.2 Albumin/Globulin Ratio 1.3 Triglycerides 66 Cholesterol 157 LDL Cholesterol 97 HDL Cholesterol 46.9 TSH 3.53 Urine Color Urine Appearance Urine pH Ur Specific [place] Urine Protein Urine Ketones Urine Blood Urine Nitrate Urine Bilirubin Urine Urobilinogen Ur Leukocyte Esterase Urine WBC (Auto) Urine RBC (Auto) Urine Bacteria Urine Glucose Salicylates < 2.50 Urine Opiates Screen Acetaminophen < 15 Ur Barbiturates Screen Ur Phencyclidine Scrn Ur Amphetamines Screen U Benzodiazepines Scrn Urine Cocaine Screen U Cannabinoids Screen Serum Alcohol < 10
[2018-06-06] MEDS: Prazosin CAP* 1 MG PO SCH (20:21)
[2018-06-06] MEDS: QUEtiapine TAB* 25 MG PO SCH (20:38)
[2018-06-07] MEDS: BuPROPion XL* 300 MG TAB.XL PO SCH (08:54)
[2018-06-07] MEDS: Lisdexamfetamine(NF) 10 MG CAP PO SCH (08:54)
[2018-06-07] MEDS: Vitamin THERAPEUTIC TAB PO SCH (08:54)
--- NOTE | 2018-06-07 14:17 | PN ---
Subjective - Subjective Date of Service: 06/07/18 Subjective: Patient reports improvement in appetite (decreased) and obsession about food. She notes improved concentration. Patient states feeling "triggered" by peers who are similar to ex-boyfriends who were narcissistic and abusive. She is receptive to suggestions, such as utilizing Seeking Safety workbook. Assessment - Assessment Inpatient DSM-V Dx: F31.81 Clinical Impression: 38 y.o. white female with histories of bipolarity, autism spectrum disorder and personality pathology admitted on a voluntary basis due to intrusive thoughts of self harm and depressive symptoms. Plan - Plan Treatment Plan: Name: SALLY DAVIS Birthdate: 1980 [id number] The patient is on a regimen of aripiprazole JEONG injectable (next 06/09), bupropion, clonazepam, quetiapine, prazosin and now Vyvanse. increase vyvanse, give monthly abilify injection if available. discharge tentative for 06/09/18. Continued Medication Management: Different Medication Medications: Current Medications Acetaminophen (Tylenol Tab*) 650 mg PO Q4H PRN PRN Reason: PAIN or TEMP > 101 F Al Hydrox/Mg Hydrox/Simethicone (Maalox Plus*) 30 ml PO Q4H PRN PRN Reason: INDIGESTION Last Admin: 06/07/18 12:52 Dose: 30 ml Bupropion HCl (Bupropion Xl*) 300 mg PO DAILY [facility] Last Admin: 06/07/18 08:54 Dose: 300 mg Clonazepam (Klonopin Tab(*)) 0.5 mg PO BID PRN PRN Reason: ANXIETY/AGITATION Last Admin: 06/06/18 17:43 Dose: 0.5 mg Multivitamins (Theragran Tab*) 1 tab PO DAILY [facility] Last Admin: 06/07/18 08:54 Dose: 1 tab Prazosin HCl (Minipress Cap*) 2 mg PO BEDTIME [facility] Last Admin: 06/06/18 20:21 Dose: 2 mg - Discharge Plan Discharge Plan: Inpatient Hospitalization
[2018-06-07] MEDS: clonazePAM TAB(*) 0.5 MG PO PRN (14:54)
[2018-06-07] MEDS: Prazosin CAP* 1 MG PO SCH (20:45)
[2018-06-07] MEDS ORDERED: QUEtiapine TAB* 25 MG PO SCH (21:00)
[2018-06-08] MEDS: Vitamin THERAPEUTIC TAB PO SCH (08:41)
[2018-06-08] MEDS: BuPROPion XL* 300 MG TAB.XL PO SCH (08:41)
[2018-06-08] MEDS: Lisdexamfetamine(NF) 10 MG CAP PO SCH (08:41)
--- NOTE | 2018-06-08 12:08 | PN ---
Subjective - Subjective Date of Service: 06/08/18 Service Type: 62114 Hosp care 15 min low complexity Subjective: Patient reports mild anxiety, improvement in depressed mood and energy. She reports sleeping well and that she weened herself from quetiapine prior to hospitalization. She is participating in unit routines and programming. Patient made copies of coping skill assignments from "Seeking Safety" workbook. Objective - Appearance Appearance: Obese Dysmorphic Features: Yes Hygiene: Normal Grooming: Well Kept - Behavior Psychomotor Activities: Normal Exhibits Abnormal Movement: No - Attitude and Relatedness Attitude and Relatedness: Cooperative Eye Contact: Fair - Speech Quality: Unpressured Latencies: Normal Quantity: Appropriate - Mood Patient's Decription of Mood: "Anxious" - Affect Observed Affect: Depressed Affect Consistent with: Dysphoria - Thought Process Patient's Thought Process: Coherent Thought Content: Yes Passive Wish, No Suicidal Planning, No Homicidal Ideation, No Paranoid Ideation - Sensorium Experiencing Hallucinations: No, Sensorium is Clear Type of Hallucinations: Visual: No, Auditory: No, Command: No - Level of Consciousness Level of Consciousness: Alert Orientation: Yes Intact, Yes Orientated to Time, Yes Orientated to Place, Yes Orientated to Person - Impulse Control Impulse Control: Intact - Insight and Judgement Insight and Judgement: Good - Group Participation Particating in Group Activities: Yes - Medication Management Medication Management Adherence: Yes Assessment - Assessment Merits Inpatient Hospitalization: For Immediate Safety, For Stabilization Inpatient DSM-V Dx: F31.81 Clinical Impression: 38 y.o. white female with histories of bipolarity, autism spectrum disorder and personality pathology admitted on a voluntary basis due to intrusive thoughts of self harm and depressive symptoms. Plan - Plan Treatment Plan: Name: SALLY DAVIS Birthdate: 1980 [id number] The patient is on a regimen of aripiprazole JEONG injectable (next 06/09), bupropion, clonazepam, quetiapine, prazosin and now Vyvanse. increase vyvanse, give monthly abilify injection if available. discharge tentative for 06/09/18 Continued Medication Management: Start Medication Medications: Current Medications Acetaminophen (Tylenol Tab*) 650 mg PO Q4H PRN PRN Reason: PAIN or TEMP > 101 F Al Hydrox/Mg Hydrox/Simethicone (Maalox Plus*) 30 ml PO Q4H PRN PRN Reason: INDIGESTION Last Admin: 06/07/18 12:52 Dose: 30 ml Aripiprazole (Abilify Maintena (Nf)) 300 mg IM Q28D [facility] Bupropion HCl (Bupropion Xl*) 300 mg PO DAILY [facility] Last Admin: 06/08/18 08:41 Dose: 300 mg Clonazepam (Klonopin Tab(*)) 0.5 mg PO BID PRN PRN Reason: ANXIETY/AGITATION Last Admin: 06/07/18 14:54 Dose: 0.5 mg Lisdexamfetamine Dimesylate (Vyvanse(Nf)) 40 mg PO DAILY [facility] Last Admin: 06/08/18 08:41 Dose: 40 mg Multivitamins (Theragran Tab*) 1 tab PO DAILY [facility] Last Admin: 06/08/18 08:41 Dose: 1 tab Prazosin HCl (Minipress Cap*) 2 mg PO BEDTIME [facility] Last Admin: 06/07/18 20:45 Dose: 2 mg Quetiapine Fumarate (Seroquel Tab*) 50 mg PO BEDTIME [facility] Last Admin: 06/07/18 20:46 Dose: Not Given - Discharge Plan Discharge Plan: Inpatient Hospitalization
[2018-06-08] MEDS: Prazosin CAP* 1 MG PO SCH (20:13)
[2018-06-09] MEDS: Lisdexamfetamine(NF) 10 MG CAP PO SCH (08:50)
[2018-06-09] MEDS: BuPROPion XL* 300 MG TAB.XL PO SCH (08:50)
[2018-06-09] MEDS: Vitamin THERAPEUTIC TAB PO SCH (08:50)
[2018-06-09 09:05] VITALS: BP 139/84
[2018-06-09] MEDS: clonazePAM TAB(*) 0.5 MG PO PRN (10:08)
--- NOTE | 2018-06-09 22:24 | DS ---
CC: [facility]. * DISCHARGE SUMMARY: DATE OF ADMISSION: 06/03/18 DATE OF DISCHARGE: 06/09/18 SUPERVISING PSYCHIATRIST: Dr. Nehemias Green.* (DICTATED BY HOMAR MALHOTRA NP) DIAGNOSES: 1. Bipolar 2 disorder. 2. Binge eating disorder. 3. Autism spectrum disorder. CONDITION AT THE TIME OF DISCHARGE: Improved. Kalee is euthymic with bright affect. She is jovial and in good spirits. She reports mild anxiety related to an upcoming appointment in [place]. The patient has stabilized on the unit. She has been safe on all checks. She is calm and in behavior control. She has been allowed all unit privileges. She received Abilify Maintena 300 mg IM today. The patient denies suicidal ideation, intrusive thoughts of suicide, or urges for self- harm. She reports readiness for discharge. MENTAL STATUS EXAM: The patient is obese, wearing her own clothing. She is sitting on her bed that is made in a pristine manner. Her posture is erect and she is cooperative with the interview. The patient is euthymic with full range of affect, alert and oriented x3. Eye contact is good. Concentration is good. Memory is 3/3. Mood is "good." Speech is soft and articulate. Thought process is logical and goal directed. Thought content is negative for passive wish or suicidal ideation. She denies auditory or visual hallucinations. She denies HI or . Her insight and judgment are good. Fund of knowledge is excellent. INSTRUCTIONS GIVEN TO THE PATIENT: A. Medications: 1. Bupropion XL 300 mg p.o. q.a.m. 2. Clonazepam 0.5 mg p.o. b.i.d. p.r.n. 3. Vyvanse 40 mg p.o. daily. 4. Prazosin 2 mg p.o. q.h.s. 5. Aripiprazole Maintena 300 mg IM q. month, due 07/07/18. B. Diet: Regular. C. Activity: Ambulation as tolerated. Tobacco cessation is not applicable. There are no pending labs or diagnostic studies. D. Followup care: The patient will follow up with [facility] and has appointments set with her psychiatrist, Dr. Robledo and therapist , Duncan Diane. She will also resume case management with Isaiah. She was given information for [facility] physician referral to establish primary care. HOSPITAL COURSE: Part A. Reason for admission: The patient presented to the emergency department after an appointment with her therapist endorsing intrusive images of suicide. The patient reports worsening mood, anhedonia, decreased energy, and decreased motivation for the past 1 to 2 months. She reports an increase in using alcohol to help with sleep and edgy, irritable mood, but stopped approximately 1 week ago. She states she has also experienced racing thoughts and intrusive images of suicide. She states that she has thoughts of wanting to punch the neighbor at times when his TV is too loud. She denies desire to harm anyone and reports that these thoughts and images are distressing to her. She endorses hypersomnia, going to bed as early as 5 p.m. and waking up around 6 or 6:30 a.m. She reports bad dreams during this time as well. She denies psychosocial stressors. She has housing through [facility] and reports a long-distance relationship with a man named, Pasha in [place], is going well and he is supportive. Part B. Psychiatric treatment rendered: The patient was admitted on adult behavioral services unit on full code status. She was placed on 15-minute checks for safety and this was quickly decreased to q.30-minute observation and she was allowed full unit privileges. The patient reported an increase in binge eating and had stopped naltrexone due to inefficacy. In the past, she had been on Vyvanse, which was helpful until she stopped taking it for unrelated reasons. The patient tolerated trial of Vyvanse; this was titrated to 40 mg. We increased prazosin to 2 mg and the patient reported this was helpful. She benefited much from programing and unit routines. She was encouraged to continue with [facility] for increased support when not in the hospital. The patient stabilized quickly. She denied suicidal images. She reported readiness for discharge. Also, she was eager to keep an appointment in [place] to be evaluated for an appeal for Social Security benefits. We discussed that this is an anxiety-producing process. This customs entry writer encouraged the patient to continue with the appointment as receiving disability is likely not only warranted, but also would be helpful in the patient's ability to function in the outpatient setting. On the day of discharge, the patient was euthymic, denied suicidal ideation and was discharged by nursing staff. HOMAR MALHOTRA, JUAN M [id number]/[facility] #: [id number] MAYTE
== END 2018-06-09 11:00 | disposition home or self-care (01) | DRG 753 ==
LOC: ED 15:11 → BSU 20:39
PROVIDERS: ADMIT Psychiatry & Neurology Psychiatry; ATTEND Psychiatry & Neurology Psychiatry
DX: F31.81 Bipolar II disorder (principal); R45.851 Suicidal ideations; Z68.42 Body mass index [BMI] 45.0-49.9, adult; J30.2 Other seasonal allergic rhinitis; F41.0 Panic disorder [episodic paroxysmal anxiety]; F43.10 Post-traumatic stress disorder, unspecified; F50.81 Binge eating disorder; F84.0 Autistic disorder; E11.9 Type 2 diabetes mellitus without complications; E66.9 Obesity, unspecified; Z72.89 Other problems related to lifestyle; Z81.8 Family history of other mental and behavioral disorders; Z88.1 Allergy status to other antibiotic agents; Z91.5 Personal history of self-harm; Z87.891 Personal history of nicotine dependence; Z91.018 Allergy to other foods
CPT/HCPCS: 36415; 80053; 80061; 80307; 80320; 80329; 81003; 81015; 83036; 84443; 85025; 87086; 99222; 99231; 99284; A9270-GY; G0480

== ENCOUNTER 2018-09-07 16:45 | Emergency (ER) | payer OTHER ==
--- NOTE | 2018-09-07 18:10 | ED ---
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 The auditory hallucinations include voices telling her to hurt herself, as well as sounds such as music clips. Associated sx: SI, not sleeping in past week, confused, difficulty concentrating. She does not have physical complaints. Denies medications. Non-smoker, no drugs, no ETOH. - History Of Current Complaint Chief Complaint: EDMentalHealth Time Seen by Provider: 09/07/18 17:51 Hx Obtained From: Patient Hx Last Menstrual Period: 2 WEEKS AGO Onset/Duration: Still Present Timing: Constant Severity Initially: Moderate Severity Currently: Moderate Associated Signs And Symptoms: Positive: Confused, Hallucinating - auditory, Sleep Disturbance Related History: Positive For: Prior Psychiatric Issues Has Suicidal: Reports: Thoughts - Allergies/Home Medications Allergies/Adverse Reactions: Allergies Allergy/AdvReac Type Severity Reaction Status Date / Time kiwi Allergy Severe Itching Verified 03/09/18 11:29 amoxicillin Allergy Intermediate Itching Verified 03/09/18 11:29 azithromycin Allergy Intermediate GI Upset Verified 03/09/18 11:29 Home Medications: Home Medications Asenapine(NF) [Saphris(NF)] 5 mg SL DAILY 09/07/18 [History Confirmed 09/07/18] Topiramate 1 tab PO BEDTIME 09/07/18 [History Confirmed 09/07/18] PMH/Surg Hx/FS Hx/Imm Hx Previously Healthy: No Endocrine/Hematology History: Reports: Hx Thyroid Disease - related to medication. history of hypothyroid related to litihum, Other Endocrine/ Hematological Disorders - surgery on her veins left leg when she was 18 years old Denies: Hx Anticoagulant Therapy, Hx Blood Disorders, Hx Blood Transfusions, Hx Bone Marrow Disease, Hx Diabetes, Hx Systemic Lupus Erythematosus, Hx Sickle Cell Disease, Hx Anemia, Hx Unexplained Bleeding Cardiovascular History: Denies: Hx Hypertension Respiratory History: Reports: Hx Seasonal Allergies Denies: Hx Asthma, Hx Chronic Obstructive Pulmonary Disease (COPD) GI History: Denies: Hx Ulcer Sensory History: Denies: Hx Contacts or Glasses, Hx Glaucoma, Hx Hearing Aid Opthamlomology History: Denies: Hx Contacts or Glasses, Hx Glaucoma Neurological History: Comment Only: Hx Seizures - per previous H&P was evaluated with long-term EEG for seizures Psychiatric History: Reports: Hx Anxiety, Hx Depression, Hx Panic Disorder, Hx Post Traumatic Stress Disorder, Hx Inpatient Treatment, Hx Community Mental Health Tx, Hx Bipolar Disorder, Hx Suicide Attempt, Other Psychiatric Issues/ Disorders - Autism Spectrum Disorder Denies: Hx Attention Deficit Hyperactivity Disorder, Hx Eating Disorder, Hx of Violent Episodes Against Others - Cancer History Hx Chemotherapy: No - Surgical History Surgery Procedure, Year, and Place: leg vein removal (age 18) Oral surgery related to teeth grinding. Infectious Disease History: No Infectious Disease History: Denies: Hx Hepatitis, Hx Human Immunodeficiency Virus (HIV), Hx of Known/ Suspected MRSA, Hx Shingles, Hx Tuberculosis, History Other Infectious Disease, Traveled Outside the [place] in Last 30 Days - Family History Known Family History: Positive: Other - Schizophrenia, depression Negative: Hypertension, Diabetes - Social History Occupation: Unemployed Lives: Alone Alcohol Use: Daily Alcohol Amount: denies Hx Substance Use: No Substance Use Type: Reports: None Hx Tobacco Use: Yes Smoking Status (MU): Former Smoker Type: Cigarettes Have You Smoked in the Last Year: Yes - states occasional cigarette but none in last 3 months Review of Systems Negative: Fever Negative: Chest Pain Negative: Abdominal Pain Negative: Arthralgia, Myalgia Psychological: Other - pos: SI, hallucinations, confusion, difficulty concentrating, not sleeping All Other Systems Reviewed And Are Negative: Yes Physical Exam - Summary Physical Exam Summary: Constitutional: Well-developed, Well-nourished, Alert. (-) Distressed Skin: Warm, Dry HENT: Normocephalic; Atraumatic Eyes: Conjunctiva normal Neck: Musculoskeletal ROM normal neck. (-) JVD, (-) Stridor, (-) Tracheal deviation Cardio: Rhythm regular, rate normal, Heart sounds normal; Intact distal pulses; The pedal pulses are 2+ and symmetric. Radial pulses are 2+ and symmetric. (-) Murmur Pulmonary/Chest wall: Effort normal. (-) Respiratory distress, (-) Wheezes, (-) Rales Abd: Soft, (-) tenderness, (-) Distension, (-) Guarding, (-) Rebound Musculoskeletal: (-) Edema Lymph: (-) Cervical adenopathy Neuro: Alert, Oriented x3 Psych: Depressed, admits SI. Triage Information Reviewed: Yes Vital Signs On Initial Exam: Initial Vitals Temp Pulse Resp BP Pulse Ox 99.0 F 105 18 146/102 97 09/07/18 16:57 09/07/18 16:57 09/07/18 16:57 09/07/18 16:57 09/07/18 16:57 Vital Signs Reviewed: Yes Diagnostics - Vital Signs Vital Signs Temp Pulse Resp BP Pulse Ox 09/07/18 16:57 99.0 F 105 18 146/102 97 - Laboratory Lab Statement: Any lab studies that have been ordered have been reviewed, and results considered in the medical decision making process. Course/Dx - Course Course Of Treatment: Pt is a 38 y/o F presenting with auditory hallucinations, telling her to hurt herself, as well as sounds such as music clips. Associated sx: SI, not sleeping in past week, confused, difficulty concentrating. She does not have physical complaints. Pt is medically clear for MHE at 1810. PT WILL BE SIGNED-OUT TO DR. RUBIO AT SHIFT CHANGE PENDING MHE. Discharge - Sign-Out/Discharge Documenting (check all that apply): Sign-Out Patient Signing out patient TO: Zeinab Rubio - PENDING MHE - Discharge Plan Referrals: No Primary Care Phys,NOPCP [Primary Care Provider] - - Attestation Statements Document Initiated by Scribe: Yes Documenting Scribe: Tre Swain Provider For Whom Scribe is Documenting (Include Credential): Dr. Amarilis Shannon MD Scribe Attestation: I, Tre Swain, scribed for Dr. Amarilis Shannon MD on at 2126.
--- NOTE | 2018-09-07 22:30 | ED ---
Progress - Progress Note Progress Note: A 38 y/o F presents to ED with auditory hallucinations onset [employer]. Patient was signed out from Dr. Shannon to Dr. Casanova during a shift change, pending a MHE. Course/Dx - Course Course Of Treatment: Pt is a 38 y/o F presenting with auditory hallucinations, telling her to hurt herself, as well as sounds such as music clips. Associated sx: SI, not sleeping in past week, confused, difficulty concentrating. She does not have physical complaints. Pt is medically clear for MHE at 1810. PT WILL BE SIGNED-OUT TO DR. CASANOVA AT SHIFT CHANGE PENDING MHE. Patient received a MHE and will be admitted to be put on hold for a transfer. Dx is schizoaffective disorder. Patient will be signed out to Dr. Ivanna Cates during a shift change. - Diagnoses Provider Diagnoses: Schizoaffective disorder Discharge - Sign-Out/Discharge Documenting (check all that apply): Sign-Out Patient, Receiving Sign-Out Signing out patient TO: Ivanna Cates - Pending a hold for transfer Receiving patient FROM: Amarilis Shannon - Pending MHE - Discharge Plan Referrals: No Primary Care Phys,NOPCP [Primary Care Provider] - - Attestation Statements Document Initiated by Scribe: Yes Documenting Scribe: Jigar Walker Provider For Whom Scribe is Documenting (Include Credential): Zeinab Casanova MD Scribe Attestation: Jigar Domingo, scribed for Zeinab Casanova MD on 09/08/18 at 0234. Status of Scribe Document: Ready
--- NOTE | 2018-09-08 07:17 | ED ---
Progress - Progress Note Progress Note: This pt was signed out from Dr. Casanova to Dr. Cates at shift change, pending MHE. Re-Evaluation - Re-Evaluation First Eval Re-Evaluation Time: 09:10 Comment: Dr. Green, psychiatrist, comes to the ED and reports pt is requiring admission. No further needs at this time. Course/Dx - Course Course Of Treatment: Pt was signed out from Dr. Casanova at shift change on a mental health unit hold. At 0910 Dr. Green comes to the ED and reports pt is requiring admission. No further needs at this time. Pt will be transferred to [facility]. Paperwork was signed by Dr. Cates for both the transfer approval and EMS transport. - Diagnoses Provider Diagnoses: Schizoaffective disorder Discharge - Sign-Out/Discharge Documenting (check all that apply): Patient Departure - Transfer to [facility], Receiving Sign-Out Receiving patient FROM: Zeinab Casanova Patient Received Moderate/Deep Sedation with Procedure: No - Discharge Plan Condition: Stable Disposition: PSYCHIATRIC FACILITY-OTHER Referrals: [facility] [Outside] - Attestation Statements Document Initiated by Scribe: Yes Documenting Scribe: Nina Fitzpatrick Provider For Whom Scribe is Documenting (Include Credential): Ivanna Cates MD Scribe Attestation: Nina Domingo, scribed for Ivanna Cates MD on 09/08/18 at 1539. Status of Scribe Document: Ready
[2018-09-08] MEDS ORDERED: BuPROPion XL* 150 MG TAB.XL PO ONE (07:24)
[2018-09-08] MEDS ORDERED: ASENAPINE 5 MG SL ONE (07:24)
--- NOTE | 2018-09-08 07:31 | PN ---
ED Flex Patient Progress Note Date of Service: 09/07/18 Subjective: This is a 38 year-old F who is pending admission to [facility] / transfer to another psychiatric facility / discharge to home / or being observed secondary to auditory hallucinations. Objective: Vitals: Most recent vital signs documented below. General NAD Laboratory: Current laboratory results documented below. Assessment: psychoaffective d/o Plan: Pending transfer. Morning medications ordered. Vital Signs Temp Pulse Resp BP Pulse Ox 100 F 106 18 137/78 97 09/07/18 21:24 09/07/18 21:24 09/07/18 21:24 09/07/18 21:24 09/07/18 21:24
[2018-09-08] MEDS ORDERED: clonazePAM TAB(*) 1 MG PO ONE (09:32)
--- NOTE | 2018-09-08 10:51 | PN ---
ED Flex Patient Progress Note Date of Service: 09/08/18 Subjective: 38 y.o. single white female with a documented history of bipolar disorder, most recent [facility] admission in May,, presents voluntarily seeking treatment for command AH telling her to harm herself. Patient states that she hasn't slept in one week. Objective: middle-aged white female, clean and well-groomed, calm, cooperative, depressed with AH and SI Assessment: Bipolar Depression Plan: Patient warrants admission but no female beds available on [facility]. Will transfer to accepting facility. Vital Signs Temp Pulse Resp BP Pulse Ox 100 F 106 18 137/78 97 09/07/18 21:24 09/07/18 21:24 09/07/18 21:24 09/07/18 21:24 09/07/18 21:24
[2018-09-08 14:18] VITALS: BP 126/67
== END 2018-09-08 13:00 ==
LOC: ED 16:45
DX: F20.9 Schizophrenia, unspecified (principal); R45.851 Suicidal ideations; Z88.1 Allergy status to other antibiotic agents; Z88.0 Allergy status to penicillin; Z91.018 Allergy to other foods; Z87.891 Personal history of nicotine dependence
CPT/HCPCS: 93005; 99285; A9270-GY

== ENCOUNTER 2018-11-17 14:00 | Inpatient (IN) | payer OTHER ==
[2018-11-17 15:01] LABS: ABS Lymphocytes 1.5 10^3/ul (1.0-4.8); ABS Monocytes 0.8 10^3/ul (0-0.8); ABS Neutrophils 4.2 10^3/ul (1.5-7.7); Eosinophil % 0.7 %; Hematocrit 43 % (35-47); Hemoglobin 14.6 g/dL (12.0-16.0); Lymphocyte % 23.2 %; Mean Corpuscular HGB Conc 34 g/dL (31-36); Mean Corpuscular Hemoglobin 30 pg (27-31); Mean Corpuscular Volume 89 fL (80-97); Mean Platelet Volume 8.8 fL (7.4-10.4); Nucleated Red Blood Cells % 0.1; Platelet Count 227 10^3/uL (150-450); Red Blood Count 4.85 10^6 /uL (3.70-4.87); Red Cell Distribution Width 13 % (10.5-15); White Blood Count 6.7 10^3/uL (3.5-10.8)
[2018-11-17 15:04] LABS: Urine Appearance Cloudy; Urine Bilirubin Negative (Negative); Urine Blood Negative (Negative); Urine Color Straw; Urine Glucose Negative (Negative); Urine Ketones Negative (Negative); Urine Nitrite Negative (Negative); Urine Protein Negative (Negative); Urine Specific Gravity 1.003 (1.010-1.030); Urine Urobilinogen Negative (Negative)
--- NOTE | 2018-11-17 15:05 | ED ---
Psychiatric Complaint - HPI Summary HPI Summary: The pt is a 38 year old F presenting to [facility] with a chief complaint of depression. Pt stated that she has been suffering from depression for a long time and the symptoms are only getting worse. The pt reports that she has been having SI and had a plan to use pills tonight but decided to come to the ED. The pt also denies drug abuse but she has a Hx of ODs. The pt stated that she has had HI recently and that she is suffering from auditory hallucinations saying that she can "hear voices". The pt reports being nauseous and vomiting due to nerves. She stated that she does not like the hallway because the area is depressing. - History Of Current Complaint Chief Complaint: EDSuicidal Time Seen by Provider: 11/17/18 14:18 Hx Obtained From: Patient Onset/Duration: Gradual Onset Timing: Constant Severity Initially: Mild Severity Currently: Severe Character: Depressed Aggravating Factor(s): Recent Stress Alleviating Factor(s): Nothing Associated Signs And Symptoms: Positive: Hallucinating - auditory, hears voices Related History: Positive For: Admissions Related To Substance Abuse Has Suicidal: Reports: Thoughts Has Homicidal: Reports: Thoughts - Allergies/Home Medications Allergies/Adverse Reactions: Allergies Allergy/AdvReac Type Severity Reaction Status Date / Time kiwi Allergy Severe Itching Verified 11/17/18 14:15 amoxicillin Allergy Intermediate Itching Verified 11/17/18 14:15 azithromycin Allergy Intermediate GI Upset Verified 11/17/18 14:15 PMH/Surg Hx/FS Hx/Imm Hx Previously Healthy: No Endocrine/Hematology History: Reports: Hx Thyroid Disease - related to medication. history of hypothyroid related to litihum, Other Endocrine/ Hematological Disorders - surgery on her veins left leg when she was 18 years old Denies: Hx Anticoagulant Therapy, Hx Blood Disorders, Hx Blood Transfusions, Hx Bone Marrow Disease, Hx Diabetes, Hx Systemic Lupus Erythematosus, Hx Sickle Cell Disease, Hx Anemia, Hx Unexplained Bleeding Cardiovascular History: Denies: Hx Hypertension Respiratory History: Reports: Hx Seasonal Allergies Denies: Hx Asthma, Hx Chronic Obstructive Pulmonary Disease (COPD) GI History: Denies: Hx Ulcer Sensory History: Denies: Hx Contacts or Glasses, Hx Glaucoma, Hx Hearing Aid Opthamlomology History: Denies: Hx Contacts or Glasses, Hx Glaucoma Neurological History: Comment Only: Hx Seizures - per previous H&P was evaluated with long-term EEG for seizures Psychiatric History: Reports: Hx Anxiety, Hx Eating Disorder - binge eating disorder, Hx Depression, Hx Panic Disorder, Hx Post Traumatic Stress Disorder, Hx Inpatient Treatment, Hx Community Mental Health Tx, Hx Bipolar Disorder, Hx Suicide Attempt, Other Psychiatric Issues/Disorders - Autism Spectrum Disorder Denies: Hx Attention Deficit Hyperactivity Disorder, Hx of Violent Episodes Against Others - Cancer History Hx Chemotherapy: No - Surgical History Surgery Procedure, Year, and Place: leg vein removal (age 18) Oral surgery related to teeth grinding. Infectious Disease History: No Infectious Disease History: Denies: Hx Hepatitis, Hx Human Immunodeficiency Virus (HIV), Hx of Known/ Suspected MRSA, Hx Shingles, Hx Tuberculosis, History Other Infectious Disease, Traveled Outside the [place] in Last 30 Days - Family History Known Family History: Positive: Other - Schizophrenia, depression Negative: Hypertension, Diabetes - Social History Alcohol Use: Occasionally Alcohol Amount: denies Hx Substance Use: No Substance Use Type: Reports: None Hx Tobacco Use: Yes Smoking Status (MU): Former Smoker Type: Cigarettes Have You Smoked in the Last Year: Yes - states occasional cigarette but none in last 3 months Review of Systems Positive: Other Positive: Vomiting Positive: Depressed, Other - Positive for SI, HI, auditory hallucinations All Other Systems Reviewed And Are Negative: Yes Physical Exam - Summary Physical Exam Summary: Constitutional: Well-developed, Well-nourished, Alert. (-) Distressed Skin: Warm, Dry HENT: Normocephalic; Atraumatic Eyes: Conjunctiva normal Neck: Musculoskeletal ROM normal neck. (-) JVD, (-) Stridor, (-) Tracheal deviation Cardio: Rhythm regular, rate normal, Heart sounds normal; Intact distal pulses; The pedal pulses are 2+ and symmetric. Radial pulses are 2+ and symmetric. (-) Murmur Pulmonary/Chest wall: Effort normal. (-) Respiratory distress, (-) Wheezes, (-) Rales Abd: Soft, (-) tenderness, (-) Distension, (-) Guarding, (-) Rebound Musculoskeletal: (-) Edema Lymph: (-) Cervical adenopathy Neuro: Alert, Oriented x3 Psych: Depressed mood, tearful, admits to SI, HI, and auditory hallucinations Triage Information Reviewed: Yes Vital Signs On Initial Exam: Initial Vitals Temp Pulse Resp BP Pulse Ox 98.5 F 108 16 160/101 99 11/17/18 14:10 11/17/18 14:10 11/17/18 14:10 11/17/18 14:10 11/17/18 14:10 Vital Signs Reviewed: Yes Diagnostics - Vital Signs Vital Signs Temp Pulse Resp BP Pulse Ox 11/17/18 14:10 98.5 F 108 16 160/101 99 - Laboratory Result Diagrams: 11/17/18 14:45 11/17/18 14:45 Lab Statement: Any lab studies that have been ordered have been reviewed, and results considered in the medical decision making process. Course/Dx - Course Course Of Treatment: The pt is a 38 year old F presenting to [facility] with a chief complaint of depression. Pt stated that she has been suffering from depression for a long time and the symptoms are only getting worse. The pt reports that she has been having SI and had a plan to use pills tonight but decided to come to the ED. The pt also denies drug abuse but she has a Hx of ODs. The pt has abnormal lab values of Creatinine 1.05 H, Glucose 134 H, and Ur specific gravity 1.003 L. The pt will be admited voluntarily per Dr. Green with a Dx of Schizoaffective disorder, bipolar type. - Differential Dx/Clinical Impression Differential Diagnosis/HQI/PQRI: Positive: Depression, Suicidal Ideation Provider Diagnosis: Schizoaffective disorder, bipolar type - Physician Notifications Discussed Care Of Patient With: Nehemias Green Time Discussed With Above Provider: 16:21 Instructed by Provider To: Admit As Inpatient - Vonluntary Discharge - Sign-Out/Discharge Documenting (check all that apply): Patient Departure - admitted Patient Received Moderate/Deep Sedation with Procedure: No - Discharge Plan Condition: Stable Disposition: ADMITTED TO [facility] Referrals: Yvonne Jane MD [Primary Care Provider] - - Billing Disposition and Condition Condition: STABLE Disposition: Admitted to [facility] - Attestation Statements Document Initiated by Scribe: Yes Documenting Scribe: Carl Brady Provider For Whom Scribe is Documenting (Include Credential): Amarilis León MD Scribe Attestation: Carl Domingo, scribed for Amarilis Shannon MD on 11/17/18 at 1826. Scribe Documentation Reviewed: Yes Provider Attestation: The documentation as recorded by the scribe, Carl Brady accurately reflects the service I personally performed and the decisions made by me, Amarilis Shannon MD Status of Scribe Document: Viewed
[2018-11-17 15:27] LABS: HCG Pregnancy < 0.60 mIU/mL
[2018-11-17 15:35] LABS: TSH (Thyroid Stimulating Horm) 1.76 mcIU/mL (0.34-5.60)
[2018-11-17 15:36] LABS: Urine Benzodiazepine Screen None Detected (None Detect); Urine Opiates Screen None Detected (None Detect)
[2018-11-17 15:36] LABS: ALT 18 U/L (7-52); Albumin 4.1 g/dL (3.2-5.2); Albumin/Globulin Ratio 1.3 (1-3); Alkaline Phosphatase 47 U/L (34-104); BUN/Creatinine Ratio 11.4 (8-20); Blood Urea Nitrogen 12 mg/dL (6-24); CO2 Carbon Dioxide 24 mmol/L (22-32); Calcium 9.1 mg/dL (8.6-10.3); Chloride 108 mmol/L (101-111); EGFR African American 70.2 (>60); Globulin 3.2 g/dL (2-4); Glucose 134 mg/dL (70-100); Sodium 139 mmol/L (135-145); Total Protein 7.3 g/dL (6.4-8.9)
[2018-11-17 15:38] LABS: Acetaminophen < 15 mcg/mL; Alcohol < 10 mg/dL (<10); Salicylate < 2.50 mg/dL (<30)
[2018-11-17 15:53] LABS: Anion Gap 7 mmol/L (2-11); Potassium 3.9 mmol/L (3.5-5.0)
[2018-11-17 15:56] LABS: AST 17 U/L (13-39)
[2018-11-17] MEDS ORDERED: Acetaminophen TAB* 325 MG PO PRN (20:59)
[2018-11-17] MEDS ORDERED: Al Hydrox/Mg Hydrox/Simet LIQ* 30 ML UDC PO PRN (20:59)
[2018-11-17] MEDS: Topiramate TAB(*) 100 MG PO SCH (21:45)
[2018-11-18] MEDS: BuPROPion XL* 150 MG TAB.XL PO SCH (09:01)
[2018-11-18] MEDS: Topiramate TAB(*) 100 MG PO SCH ×2 (09:01→21:49)
[2018-11-18] MEDS: Multivitamins/Minerals TAB PO SCH (09:01)
[2018-11-18] MEDS: clonazePAM TAB(*) 0.5 MG PO PRN (09:03)
--- NOTE | 2018-11-18 14:26 | PN ---
[facility]: Group Therapy Note - Service Type Service Type: [id number] Group Psychotherapy - Cognitive Behavioral Group Therapy ( CBT):Patient was attentive and participatory in CBT programming this morning, and remained in good behavioral control. Patient expressed positive insights regarding relevant treatment interventions and goals.
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
[2018-11-19] MEDS: BuPROPion XL* 150 MG TAB.XL PO SCH (08:18)
[2018-11-19] MEDS: Topiramate TAB(*) 100 MG PO SCH ×2 (08:19→20:23)
[2018-11-19] MEDS: Multivitamins/Minerals TAB PO SCH (08:19)
[2018-11-19] MEDS: clonazePAM TAB(*) 0.5 MG PO PRN ×2 (08:20→20:23)
--- NOTE | 2018-11-19 10:42 | PN ---
Subjective - Subjective Date of Service: 11/19/18 Service Type: 47017 Hosp care 15 min low complexity Subjective: Patient is lying down upon approach. She is tearful during conversation and endorses hopelessness. She reports she has been more forthcoming about AH with her outpatient providers. She states she has experienced AH, ideas of reference and thought broadcasting for many years. Therefore, Dr Robledo has changed diagnosis to schizoaffective d/o, bipolar type. Patient reports frustration that "she doesn't want me to have anything [medications] that make me feel good." Account Services Coordinator encourages reframe and patient states "you like to reframe, to be right" with a smirk. Patient informed of contact made to Dr Robledo and awaiting collaboration prior to medication changes. We discuss PROS , which patient is agreeable to. Objective - General Observations Appearance: Unkempt Stature: Overweight Posture: Slumped Eye Contact: Intermittent Behavior/Activity: Slowed - Interaction Observations Attitude Towards Examiner: Cooperative, Anxious Stated Mood: Dysphoric Affect: Flat Speech Pattern/Tone: Clear, Quiet Volume Thought Process: Circumstantial Perception: WNL Thought Content: Depressive, Self-Deprecatory Thought Process: Lethality: Passive Wish Hallucination Type: Denies Delusion Type: Denies - Cognitive Function Orientation: A&O x 4 Level of Consciousness: Alert Cognition: WNL Estimated Intelligence: Normal Insight: WNL Judgment Within Normal Limits: No Ability to Make Reasonable Decisions: Serverely Impaired - Medication Compliance Cooperative with Inpatient Medication Regimen: Yes - Group Participation Participates in Group Activities: Partial Assessment - Assessment Merits Inpatient Hospitalization: For Immediate Safety, For Stabilization Inpatient DSM-V Dx: F25.0 Clinical Impression: 38yo wf, domiciled, single, never and recently unemployed. She presented to ED self-referred due to SI and plan to OD on medications. She reports having a mixed episode 1-2 months ago wherein her psychiatrist decreased antidepressant. She reports worsening depression since then and this was further complicated when her relationship with the long distance partner ended and she was unable to complete orientation for a job at [employer] due to severe anxiety. I have reached out to outpatient psychiatrist and am waiting to hear back before medication changes. Patient merits hospitalization for immediate safety and stabilization. Plan - Plan Treatment Plan: Name: SALLY DAVIS Birthdate: 1980 [id number] continue acute intensive psychiatric treatment. may decrease to q30min, allow staff pass and computer use. continue current medications. awaiting collaboration from outpatient psychiatrist. Continued Medication Management: Continue Outpt Medication Medications: Current Medications Acetaminophen (Tylenol Tab*) 650 mg PO Q4H PRN PRN Reason: PAIN; OR TEMP >101 Al Hydrox/Mg Hydrox/Simethicone (Maalox Plus*) 30 ml PO Q4H PRN PRN Reason: INDIGESTION Aripiprazole (Abilify Maintena (Nf)) 400 mg IM Q28D [facility] Bupropion HCl (Wellbutrin Xl *) 150 mg PO QAM [facility] Last Admin: 11/19/18 08:18 Dose: 150 mg Clonazepam (Klonopin Tab(*)) 0.5 mg PO BID PRN PRN Reason: ANXIETY/AGITATION Last Admin: 11/19/18 08:20 Dose: 0.5 mg Multivitamins/Minerals (Theragran/Minerals Tab*) 1 tab PO DAILY [facility] Last Admin: 11/19/18 08:19 Dose: 1 tab Topiramate (Topamax(*)) 100 mg PO BID [facility] Last Admin: 11/19/18 08:19 Dose: 100 mg - Discharge Plan Discharge Plan: Inpatient Hospitalization Outpatient Program: [facility]
[2018-11-20] MEDS: clonazePAM TAB(*) 0.5 MG PO PRN ×2 (08:24→20:17)
[2018-11-20] MEDS: Topiramate TAB(*) 100 MG PO SCH ×2 (08:24→20:17)
[2018-11-20] MEDS: Multivitamins/Minerals TAB PO SCH (08:24)
[2018-11-20] MEDS: BuPROPion XL* 150 MG TAB.XL PO SCH (08:24)
[2018-11-20] MEDS ORDERED: Ibuprofen TAB* 400 MG PO PRN (17:10)
[2018-11-21] MEDS: Multivitamins/Minerals TAB PO SCH (08:38)
[2018-11-21] MEDS: BuPROPion XL* 150 MG TAB.XL PO SCH (08:38)
[2018-11-21] MEDS: clonazePAM TAB(*) 0.5 MG PO PRN ×2 (08:38→20:25)
[2018-11-21] MEDS: Topiramate TAB(*) 100 MG PO SCH ×2 (08:38→20:24)
--- NOTE | 2018-11-21 17:27 | PN ---
Subjective - Subjective Date of Service: 11/21/18 Service Type: 67290 Hosp care 15 min low complexity Subjective: Sally was sitting in the day area alone and thinking. On approach she politely said she feels better in the milieu. Receives a lot of supports from everybody. However still sad, tired and suicidal without plans. Denies hallucinations, delusions or HI. Objective - General Observations Appearance: Well Groomed Appears Stated Age: Yes Stature: WNL Posture: WNL Eye Contact: Average Behavior/Activity: WNL - Interaction Observations Attitude Towards Examiner: Cooperative Stated Mood: Anxious Affect: Restricted Speech Pattern/Tone: Clear, Appropriate, Normal Volume Thought Process: Coherent, Goal Directed Thought Content: WNL Hallucination Type: None Delusion Type: None - Cognitive Function Orientation: A&O x 4 Level of Consciousness: Awake, Alert, Appropriate Cognition: WNL Estimated Intelligence: Normal Insight: WNL - Medication Compliance Cooperative with Inpatient Medication Regimen: Yes - Group Participation Participates in Group Activities: Yes Assessment - Assessment Merits Inpatient Hospitalization: For Immediate Safety, For Stabilization, Pending Safe DC Plan Clinical Impression: 38yo wf, domiciled, single, never and recently unemployed. She presented to ED self-referred due to SI and plan to OD on medications. She reports having a mixed episode 1-2 months ago wherein her psychiatrist decreased antidepressant. She reports worsening depression since then and this was further complicated when her relationship with the long distance partner ended and she was unable to complete orientation for a job at [employer] due to severe anxiety. I have reached out to outpatient psychiatrist and am waiting to hear back before medication changes. Patient merits hospitalization for immediate safety and stabilization. Plan - Plan Treatment Plan: Name: SALLY DAVIS Birthdate: 1980 [id number] continue acute intensive psychiatric treatment. may decrease to q30min, allow staff pass and computer use. continue current medications. awaiting collaboration from outpatient psychiatrist. Continued Medication Management: Continue Outpt Medication Medications: Current Medications Acetaminophen (Tylenol Tab*) 650 mg PO Q4H PRN PRN Reason: PAIN; OR TEMP >101 Al Hydrox/Mg Hydrox/Simethicone (Maalox Plus*) 30 ml PO Q4H PRN PRN Reason: INDIGESTION Aripiprazole (Viral Hernandez (Nf)) 400 mg IM Q28D [facility] Bupropion HCl (Wellbutrin Xl *) 150 mg PO QAM [facility] Last Admin: 11/21/18 08:38 Dose: 150 mg Clonazepam (Klonopin Tab(*)) 0.5 mg PO BID PRN PRN Reason: ANXIETY/AGITATION Last Admin: 11/21/18 08:38 Dose: 0.5 mg Ibuprofen (Motrin Tab*) 400 mg PO Q4H PRN PRN Reason: PAIN Last Admin: 11/20/18 17:22 Dose: 400 mg Multivitamins/Minerals (Theragran/Minerals Tab*) 1 tab PO DAILY [facility] Last Admin: 11/21/18 08:38 Dose: 1 tab Topiramate (Topamax(*)) 100 mg PO BID [facility] Last Admin: 11/21/18 08:38 Dose: 100 mg - Discharge Plan Discharge Plan: Outpatient Follow Up Outpatient Program: [facility]
[2018-11-22] MEDS: clonazePAM TAB(*) 0.5 MG PO PRN (08:50)
[2018-11-22] MEDS: Topiramate TAB(*) 100 MG PO SCH ×2 (08:51→21:07)
[2018-11-22] MEDS: BuPROPion XL* 150 MG TAB.XL PO SCH (08:51)
[2018-11-22] MEDS: Multivitamins/Minerals TAB PO SCH (08:51)
--- NOTE | 2018-11-22 12:57 | PN ---
BSU: Group Therapy Note - Service Type Service Type: 66635 Group Psychotherapy - Cognitive Behavioral Group Therapy ( CBT):Patient was attentive and participatory in CBT programming this morning, and remained in good behavioral control. Patient expressed positive insights regarding relevant treatment interventions and goals.
[2018-11-22] MEDS: clonazePAM TAB(*) 1 MG PO SCH ×2 (16:14→21:07)
[2018-11-22] MEDS: Ondansetron ODT TAB* 4 MG PO PRN (16:14)
--- NOTE | 2018-11-22 18:17 | PN ---
Subjective - Subjective Date of Service: 11/22/18 Service Type: 35070 Hosp care 25 min moderate complexity Subjective: Varsha is seen in coverage for PIOTR Cruz. Varsha complains of nausea and anxiety each morning which is followed by vomiting. We will remedy that situation by increasing and scheduling Klonopin to 1 mg TID and adding Zofran 4 mg PRN. Varsha also wanted to know about changing Abilify to Invega and changing Effexor. These decisions were deferred to Mariaa Sánchez and her collaboration with Dr. Robledo, if she chooses. Varsha endorses suicidal thoughts and depression that will not remit. Objective - General Observations Appearance: Disheveled Appears Stated Age: Yes Stature: Overweight Posture: WNL Eye Contact: Intermittent Behavior/Activity: Slowed - Interaction Observations Attitude Towards Examiner: Cooperative Stated Mood: Dysphoric, Anxious Affect: Blunted Speech Pattern/Tone: Clear Thought Process: Coherent Perception: WNL Thought Content: Preoccupation/Ruminations Thought Process: Lethality: Passive Wish, Suicidal Planning Hallucination Type: None Delusion Type: None - Cognitive Function Orientation: Unable to Determine Level of Consciousness: Awake, Alert, Appropriate Cognition: WNL Estimated Intelligence: Normal Insight: WNL Judgment Within Normal Limits: No Ability to Make Reasonable Decisions: Mildly Impaired - Medication Compliance Cooperative with Inpatient Medication Regimen: Yes - Group Participation Participates in Group Activities: Yes Assessment - Assessment Merits Inpatient Hospitalization: For Immediate Safety Clinical Impression: 38yo wf, domiciled, single, never and recently unemployed. She presented to ED self-referred due to SI and plan to OD on medications. She reports having a mixed episode 1-2 months ago wherein her psychiatrist decreased antidepressant. She reports worsening depression since then and this was further complicated when her relationship with the long distance partner ended and she was unable to complete orientation for a job at [employer] due to severe anxiety. I have reached out to outpatient psychiatrist and am waiting to hear back before medication changes. Patient merits hospitalization for immediate safety and stabilization. Plan - Plan Treatment Plan: Name: SALLY DAVIS Birthdate: 1980 [id number] continue acute intensive psychiatric treatment. may decrease to q30min, allow staff pass and computer use. continue current medications. awaiting collaboration from outpatient psychiatrist. Increase Klonopin to 1 mg TID and add Zofran to address nausea, anxiety, and vomiting. Continued Medication Management: Different Medication Medications: Current Medications Acetaminophen (Tylenol Tab*) 650 mg PO Q4H PRN PRN Reason: PAIN; OR TEMP >101 Al Hydrox/Mg Hydrox/Simethicone (Maalox Plus*) 30 ml PO Q4H PRN PRN Reason: INDIGESTION Aripiprazole (Abilify Maintena (Nf)) 400 mg IM Q28D [facility] Bupropion HCl (Wellbutrin Xl *) 150 mg PO QAM [facility] Last Admin: 11/22/18 08:51 Dose: 150 mg Clonazepam (Klonopin Tab(*)) 1 mg PO TID [facility] Last Admin: 11/22/18 16:14 Dose: 1 mg Ibuprofen (Motrin Tab*) 400 mg PO Q4H PRN PRN Reason: PAIN Last Admin: 11/20/18 17:22 Dose: 400 mg Multivitamins/Minerals (Theragran/Minerals Tab*) 1 tab PO DAILY [facility] Last Admin: 11/22/18 08:51 Dose: 1 tab Ondansetron HCl (Zofran Odt Tab*) 4 mg PO Q6H PRN PRN Reason: NAUSEA Last Admin: 11/22/18 16:14 Dose: 4 mg Topiramate (Topamax(*)) 100 mg PO BID [facility] Last Admin: 11/22/18 08:51 Dose: 100 mg
[2018-11-23] MEDS: clonazePAM TAB(*) 1 MG PO SCH ×3 (08:26→20:08)
[2018-11-23] MEDS: Topiramate TAB(*) 100 MG PO SCH ×2 (08:26→20:08)
[2018-11-23] MEDS: BuPROPion XL* 150 MG TAB.XL PO SCH (08:26)
[2018-11-23] MEDS: Multivitamins/Minerals TAB PO SCH (08:26)
--- NOTE | 2018-11-23 13:05 | PN ---
BSU: Group Therapy Note - Service Type Service Type: 55196 Group Psychotherapy - Cognitive Behavioral Group Therapy ( CBT):Patient was attentive and participatory in CBT programming this morning, and remained in good behavioral control. Patient expressed positive insights regarding relevant treatment interventions and goals.
--- NOTE | 2018-11-23 13:35 | PN ---
Subjective - Subjective Date of Service: 11/23/18 Service Type: 69079 Hosp care 25 min moderate complexity Subjective: Patient is tearful and anxious. She reports concern about being discharge prematurely and endorses suicidal ideation. She is circumstantial about medication changes. Attempts made to empower patient to identify internal loci of control to assist with mood (ie activities, diet, exercise). Patient often returned to topic of medications, citing change in mood correlated with decrease in wellbutrin. Patient asked to consider other factors, such as relationships and employment. She stated agreement. Objective - General Observations Appearance: Well Groomed Stature: Overweight Posture: WNL Eye Contact: Average Behavior/Activity: WNL - Interaction Observations Attitude Towards Examiner: Cooperative, Anxious Stated Mood: Dysphoric Affect: Flat Speech Pattern/Tone: Clear, Quiet Volume Thought Process: Circumstantial - medication changes, Impoverished Perception: WNL Thought Content: Depressive Thought Process: Lethality: Passive Wish, Suicidal Planning Hallucination Type: Denies Delusion Type: Denies - Cognitive Function Orientation: A&O x 4 Level of Consciousness: Alert Cognition: WNL Estimated Intelligence: Normal Insight: WNL Judgment Within Normal Limits: No Ability to Make Reasonable Decisions: Moderately Impaired - Medication Compliance Cooperative with Inpatient Medication Regimen: Yes - Group Participation Participates in Group Activities: Yes Assessment - Assessment Inpatient DSM-V Dx: F25.0 Clinical Impression: 38yo wf, domiciled, single, never and recently unemployed. She presented to ED self-referred due to SI and plan to OD on medications. She reports having a mixed episode 1-2 months ago wherein her psychiatrist decreased antidepressant. She reports worsening depression since then and this was further complicated when her relationship with the long distance partner ended and she was unable to complete orientation for a job at [employer] due to severe anxiety. I have reached out to outpatient psychiatrist and am waiting to hear back before medication changes. Patient merits hospitalization for immediate safety and stabilization. Plan - Plan Treatment Plan: Name: SALLY DAVIS Birthdate: 1980 [id number] continue acute intensive psychiatric treatment. may decrease to q30min, allow staff pass and computer use. continue current medications. awaiting collaboration from outpatient psychiatrist. Continued Medication Management: Continue Outpt Medication Medications: Current Medications Acetaminophen (Tylenol Tab*) 650 mg PO Q4H PRN PRN Reason: PAIN; OR TEMP >101 Al Hydrox/Mg Hydrox/Simethicone (Maalox Plus*) 30 ml PO Q4H PRN PRN Reason: INDIGESTION Aripiprazole (Abilify Maintena (Nf)) 400 mg IM Q28D [facility] Bupropion HCl (Wellbutrin Xl *) 150 mg PO QAM [facility] Last Admin: 11/23/18 08:26 Dose: 150 mg Clonazepam (Klonopin Tab(*)) 1 mg PO TID [facility] Last Admin: 11/23/18 08:26 Dose: 1 mg Ibuprofen (Motrin Tab*) 400 mg PO Q4H PRN PRN Reason: PAIN Last Admin: 11/20/18 17:22 Dose: 400 mg Multivitamins/Minerals (Theragran/Minerals Tab*) 1 tab PO DAILY [facility] Last Admin: 11/23/18 08:26 Dose: 1 tab Ondansetron HCl (Zofran Odt Tab*) 4 mg PO Q6H PRN PRN Reason: NAUSEA Last Admin: 11/22/18 16:14 Dose: 4 mg Topiramate (Topamax(*)) 100 mg PO BID [facility] Last Admin: 11/23/18 08:26 Dose: 100 mg - Discharge Plan [facility]
[2018-11-24] MEDS: Topiramate TAB(*) 100 MG PO SCH ×2 (08:24→20:42)
[2018-11-24] MEDS: Multivitamins/Minerals TAB PO SCH (08:24)
[2018-11-24] MEDS: BuPROPion XL* 150 MG TAB.XL PO SCH (08:24)
[2018-11-24] MEDS: clonazePAM TAB(*) 1 MG PO SCH ×3 (08:25→20:42)
--- NOTE | 2018-11-24 14:20 | PN ---
Subjective - Subjective Date of Service: 11/24/18 Service Type: 26724 Hosp care 25 min moderate complexity Subjective: Patient is dysphoric, tearful and reports significant fear of returning home. She reports frustration and sadness that her outpatient therapist is on leave. She expresses empathy that he is not doing well. She goes on to describe comfort in their relationship in that "he is the only male in my life that is calm and rationale." She states this gives her hope that someday she may find a romantic partner with stable mental health. She states agreement with trial of oral paliperidone and potential change to this medication as an JEONG. Objective - General Observations Appearance: Unkempt Stature: Overweight Posture: Slumped Eye Contact: Average Behavior/Activity: Slowed - Interaction Observations Attitude Towards Examiner: Cooperative Stated Mood: Dysphoric Affect: Flat Speech Pattern/Tone: Quiet Volume Thought Process: Circumstantial, Impoverished Perception: WNL Thought Content: WNL Thought Process: Lethality: Passive Wish, Suicidal Planning Hallucination Type: Denies Delusion Type: Denies - Cognitive Function Orientation: A&O x 4 Level of Consciousness: Alert Cognition: WNL Estimated Intelligence: Normal Insight: WNL Judgment Within Normal Limits: No Ability to Make Reasonable Decisions: Moderately Impaired - Medication Compliance Cooperative with Inpatient Medication Regimen: Yes - Group Participation Participates in Group Activities: Yes Assessment - Assessment Merits Inpatient Hospitalization: For Immediate Safety, For Stabilization, Pending Safe DC Plan Inpatient DSM-V Dx: F25.0 Clinical Impression: 38yo wf, domiciled, single, never and recently unemployed. She presented to ED self-referred due to SI and plan to OD on medications. She reports having a mixed episode 1-2 months ago wherein her psychiatrist decreased antidepressant. She reports worsening depression since then and this was further complicated when her relationship with the long distance partner ended and she was unable to complete orientation for a job at [employer] due to severe anxiety. Patient merits hospitalization for immediate safety and stabilization. Plan - Plan Treatment Plan: Name: SALLY DAVIS Birthdate: 1980 [id number] continue acute intensive psychiatric treatment. may decrease to q30min, allow staff pass and computer use. add paliperidone 6mg PO qhs. consider cross taper from aripiprazole. continue other medications, as ordered. discharge planning to include outpatient providers. Continued Medication Management: Start Medication Medications: Current Medications Acetaminophen (Tylenol Tab*) 650 mg PO Q4H PRN PRN Reason: PAIN; OR TEMP >101 Al Hydrox/Mg Hydrox/Simethicone (Maalox Plus*) 30 ml PO Q4H PRN PRN Reason: INDIGESTION Aripiprazole (Abilifmercy Maintena (Nf)) 400 mg IM Q28D [facility] Bupropion HCl (Wellbutrin Xl *) 150 mg PO QAM [facility] Last Admin: 11/24/18 08:24 Dose: 150 mg Clonazepam (Klonopin Tab(*)) 1 mg PO TID [facility] Last Admin: 11/24/18 14:06 Dose: 1 mg Ibuprofen (Motrin Tab*) 400 mg PO Q4H PRN PRN Reason: PAIN Last Admin: 11/20/18 17:22 Dose: 400 mg Multivitamins/Minerals (Theragran/Minerals Tab*) 1 tab PO DAILY [facility] Last Admin: 11/24/18 08:24 Dose: 1 tab Ondansetron HCl (Zofran Odt Tab*) 4 mg PO Q6H PRN PRN Reason: NAUSEA Last Admin: 11/22/18 16:14 Dose: 4 mg Paliperidone (Invega Er Tab*) 6 mg PO BEDTIME [facility] Topiramate (Topamax(*)) 100 mg PO BID [facility] Last Admin: 11/24/18 08:24 Dose: 100 mg - Discharge Plan Discharge Plan: Inpatient Hospitalization
--- NOTE | 2018-11-24 16:31 | PN ---
BSU: Group Therapy Note - Service Type Service Type: 66617 Group Psychotherapy - Medication Education Group: Patient was attentive and participatory in group, and remained in good behavioral control. Patient expressed positive insights regarding relevant treatment interventions. Patient stated understanding of material discussed and had appropriate questions.
[2018-11-24] MEDS: Paliperidone ER TAB* 6 MG TAB.ER PO SCH (20:42)
[2018-11-25] MEDS: Multivitamins/Minerals TAB PO SCH (08:11)
[2018-11-25] MEDS: Topiramate TAB(*) 100 MG PO SCH ×2 (08:11→21:30)
[2018-11-25] MEDS: BuPROPion XL* 150 MG TAB.XL PO SCH (08:11)
[2018-11-25] MEDS: clonazePAM TAB(*) 1 MG PO SCH ×3 (08:11→21:28)
[2018-11-25] MEDS: Paliperidone ER TAB* 6 MG TAB.ER PO SCH (21:30)
[2018-11-26] MEDS: Topiramate TAB(*) 100 MG PO SCH ×2 (08:31→20:59)
[2018-11-26] MEDS: Multivitamins/Minerals TAB PO SCH (08:31)
[2018-11-26] MEDS: BuPROPion XL* 150 MG TAB.XL PO SCH (08:31)
[2018-11-26] MEDS: clonazePAM TAB(*) 1 MG PO SCH ×3 (08:31→20:58)
[2018-11-26] MEDS ORDERED: Paliperidone SUSTENNA* 234 MG/1.5 ML IM ONE (12:00)
--- NOTE | 2018-11-26 12:39 | PN ---
Subjective - Subjective Date of Service: 11/26/18 Service Type: 08111 Hosp care 25 min moderate complexity Subjective: Patient dysphoric and tearful. She reports fear of leaving hospital due to chronic suicidal ideation. She inquires about necessity of state hospitalization. Weekend Receptionist reiterates suggested treatment plan of increasing to [facility] at [facility], along with working with her PCP in regards to referral to [facility]. Patient circumstantial about need for another medication in antidepressant category. She endorses feelings of rejection in relation to outpatient providers. Objective - General Observations Appearance: Well Groomed Stature: Overweight Posture: Slumped Eye Contact: Average Behavior/Activity: Slowed - Interaction Observations Attitude Towards Examiner: Anxious, Defensive Stated Mood: Dysphoric Affect: Flat Speech Pattern/Tone: Clear, Appropriate, Normal Volume Thought Process: Circumstantial Perception: WNL Thought Content: Obsessional, Self-Deprecatory Thought Process: Lethality: Passive Wish, Suicidal Planning Hallucination Type: Denies Delusion Type: Denies - Cognitive Function Orientation: A&O x 4 Level of Consciousness: Alert Cognition: WNL Estimated Intelligence: Normal Insight: WNL Judgment Within Normal Limits: No Ability to Make Reasonable Decisions: Moderately Impaired - Medication Compliance Cooperative with Inpatient Medication Regimen: Yes - Group Participation Participates in Group Activities: Yes Assessment - Assessment Merits Inpatient Hospitalization: For Immediate Safety, For Stabilization, For Discharge Planning, Pending Safe DC Plan Inpatient DSM-V Dx: F25.0 Clinical Impression: 38yo wf, domiciled, single, never and recently unemployed. She presented to ED self-referred due to SI and plan to OD on medications. She reports having a mixed episode 1-2 months ago wherein her psychiatrist decreased antidepressant. She reports worsening depression since then and this was further complicated when her relationship with the long distance partner ended and she was unable to complete orientation for a job at [employer] due to severe anxiety. Patient merits hospitalization for immediate safety and stabilization. Plan - Plan Treatment Plan: Name: SALLY DAVIS Birthdate: 1980 [id number] continue acute intensive psychiatric treatment. may decrease to q30min, allow staff pass and computer use. give first booster of invega sustenna today. second booster to be given . continue other medications. discharge tentative 11/29/18 Continued Medication Management: Start Medication Medications: Current Medications Acetaminophen (Tylenol Tab*) 650 mg PO Q4H PRN PRN Reason: PAIN; OR TEMP >101 Al Hydrox/Mg Hydrox/Simethicone (Maalox Plus*) 30 ml PO Q4H PRN PRN Reason: INDIGESTION Bupropion HCl (Wellbutrin Xl *) 150 mg PO QAM [facility] Last Admin: 11/26/18 08:31 Dose: 150 mg Clonazepam (Klonopin Tab(*)) 1 mg PO TID [facility] Last Admin: 11/26/18 08:31 Dose: 1 mg Ibuprofen (Motrin Tab*) 400 mg PO Q4H PRN PRN Reason: PAIN Last Admin: 11/20/18 17:22 Dose: 400 mg Multivitamins/Minerals (Theragran/Minerals Tab*) 1 tab PO DAILY [facility] Last Admin: 11/26/18 08:31 Dose: 1 tab Ondansetron HCl (Zofran Odt Tab*) 4 mg PO Q6H PRN PRN Reason: NAUSEA Last Admin: 11/22/18 16:14 Dose: 4 mg Topiramate (Topamax(*)) 100 mg PO BID [facility] Last Admin: 11/26/18 08:31 Dose: 100 mg - Discharge Plan Discharge Plan: Inpatient Hospitalization
[2018-11-27] MEDS: clonazePAM TAB(*) 1 MG PO SCH ×3 (09:00→21:35)
[2018-11-27] MEDS: Topiramate TAB(*) 100 MG PO SCH ×2 (09:00→21:35)
[2018-11-27] MEDS: BuPROPion XL* 150 MG TAB.XL PO SCH (09:00)
[2018-11-27] MEDS: Multivitamins/Minerals TAB PO SCH (09:00)
[2018-11-28] MEDS: clonazePAM TAB(*) 1 MG PO SCH ×3 (08:24→20:19)
[2018-11-28] MEDS: Topiramate TAB(*) 100 MG PO SCH ×2 (08:25→20:19)
[2018-11-28] MEDS: BuPROPion XL* 150 MG TAB.XL PO SCH (08:25)
[2018-11-28] MEDS: Multivitamins/Minerals TAB PO SCH (08:25)
[2018-11-29] MEDS: BuPROPion XL* 150 MG TAB.XL PO SCH (08:30)
[2018-11-29] MEDS: clonazePAM TAB(*) 1 MG PO SCH (08:30)
[2018-11-29] MEDS: Ondansetron ODT TAB* 4 MG PO PRN (08:30)
[2018-11-29] MEDS: Topiramate TAB(*) 100 MG PO SCH (08:30)
[2018-11-29] MEDS: Multivitamins/Minerals TAB PO SCH (10:01)
[2018-11-29] MEDS ORDERED: Paliperidone SUSTENNA* 156 MG/1 ML IM ONE (10:17)
[2018-11-29 11:19] VITALS: BP 147/98
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
== END 2018-11-29 14:35 | disposition home or self-care (01) | DRG 750 ==
LOC: ED 14:00 → BSU 16:53 → ED 20:21
PROVIDERS: ADMIT Psychiatry & Neurology Psychiatry; ATTEND Psychiatry & Neurology Psychiatry
PROC: GZHZZZZ Group Psychotherapy (ICD-10-PCS; principal; 2018-11-18)
DX: F25.0 Schizoaffective disorder, bipolar type (principal); R45.851 Suicidal ideations; Z68.43 Body mass index [BMI] 50.0-59.9, adult; F84.0 Autistic disorder; F50.81 Binge eating disorder; E66.9 Obesity, unspecified; E11.9 Type 2 diabetes mellitus without complications; F41.9 Anxiety disorder, unspecified; J30.2 Other seasonal allergic rhinitis; F41.0 Panic disorder [episodic paroxysmal anxiety]; F43.10 Post-traumatic stress disorder, unspecified; R11.2 Nausea with vomiting, unspecified; Z56.0 Unemployment, unspecified; Z72.0 Tobacco use; Z81.8 Family history of other mental and behavioral disorders; Z88.1 Allergy status to other antibiotic agents; Z88.0 Allergy status to penicillin; Z91.018 Allergy to other foods
CPT/HCPCS: 36415; 80053; 80307; 80320; 80329; 81003; 84443; 84702; 85025; 90853; 99222; 99231; 99232; 99238; 99284; A9270-GY; G0480; J2426

== ENCOUNTER 2018-12-07 13:51 | Inpatient (IN) | payer OTHER ==
[2018-12-07 14:38] LABS: ABS Lymphocytes 1.4 10^3/ul (1.0-4.8); ABS Monocytes 0.6 10^3/ul (0-0.8); ABS Neutrophils 4.7 10^3/ul (1.5-7.7); Eosinophil % 0.7 %; Hematocrit 42 % (35-47); Hemoglobin 14.1 g/dL (12.0-16.0); Lymphocyte % 19.9 %; Mean Corpuscular HGB Conc 34 g/dL (31-36); Mean Corpuscular Hemoglobin 30 pg (27-31); Mean Corpuscular Volume 89 fL (80-97); Mean Platelet Volume 8.2 fL (7.4-10.4); Platelet Count 244 10^3/uL (150-450); Red Blood Count 4.75 10^6 /uL (3.70-4.87); Red Cell Distribution Width 14 % (10-15); White Blood Count 6.8 10^3/uL (3.5-10.8)
[2018-12-07 14:59] LABS: ALT 21 U/L (7-52); AST 19 U/L (13-39); Albumin/Globulin Ratio 1.2 (1-3); Alkaline Phosphatase 49 U/L (34-104); Anion Gap 8 mmol/L (2-11); BUN/Creatinine Ratio 15.7 (8-20); Blood Urea Nitrogen 13 mg/dL (6-24); CO2 Carbon Dioxide 23 mmol/L (22-32); Chloride 107 mmol/L (101-111); EGFR African American 92.1 (>60); EGFR Non-African American 76.1 (>60); Globulin 3.3 g/dL (2-4); Glucose 103 mg/dL (70-100); Potassium 3.9 mmol/L (3.5-5.0); Sodium 138 mmol/L (135-145); Total Protein 7.3 g/dL (6.4-8.9)
--- NOTE | 2018-12-07 15:02 | ED ---
Psychiatric Complaint - HPI Summary HPI Summary: Pt is a 38 y/o F presenting to the ED with a chief complaint of depression and suicidal ideation. She states she was d/ioana from the [facility] last week after a 2 week stay, but felt like she was not ready for discharge. She saw her counselor today and talked about her suicidal ideation. Her counselor advised her to come here. She denies pain, fever, chills, diaphoresis, ESQUEDA, dizziness, urinary sx, SOB, CP , vaginal bleeding, or vaginal discharge. She reports suicidal thoughts with a plan to overdose on a mix of her Klonopin and other medication. Pt states she filled her clonazepam yesterday, "and may have taken a few extra", but did not overdose. Pt denies alcohol and any other ingestion. She has hx of a biopsy of her L breast. LNMP 11/23/18, she has no children. Her mother committed suicide via overdose. She used to take [place], but does not anymore. Home Medications Medication Instructions Recorded Confirmed Type clonazePAM TAB(*) [Klonopin TAB(*)] 0.5 mg PO BID PRN #60 tab MDD 2 06/09/18 Rx tabs Bupropion XL* [Wellbutrin XL *] 150 mg PO QAM tab 11/29/18 12/07/18 Rx Topiramate TAB(*) [Topamax 100 mg 100 mg PO BID tab 11/29/18 12/07/18 Rx tab] Paliperidone SUSTENNA* [Invega 156 mg IM Q28D 12/07/18 12/07/18 History Sustenna*] Venlafaxine EXT RELEASE CAP* 75 mg PO DAILY 12/07/18 12/07/18 History [Effexor Xr CAP*] - History Of Current Complaint Chief Complaint: EDSuicidal Time Seen by Provider: 12/07/18 14:05 Accompanied By: alone Hx Obtained From: Patient Hx Last Menstrual Period: 11/23/18 ?: No Onset/Duration: Gradual Onset, Lasting Weeks, Still Present Timing: Constant Severity Initially: Moderate Severity Currently: Moderate Character: Depressed Aggravating Factor(s): Nothing Alleviating Factor(s): Nothing Associated Signs And Symptoms: Positive: Sleep Disturbance, Social Withdrawal Related History: Positive For: Prior Psychiatric Issues Has Suicidal: Reports: Thoughts, With A Plan Has Homicidal: Denies: Thoughts - Allergies/Home Medications Allergies/Adverse Reactions: Allergies Allergy/AdvReac Type Severity Reaction Status Date / Time kiwi Allergy Severe Itching Verified 12/07/18 13:53 amoxicillin Allergy Intermediate Itching Verified 12/07/18 13:53 azithromycin Allergy Intermediate GI Upset Verified 12/07/18 13:53 Home Medications: Home Medications Paliperidone SUSTENNA* [Invega Sustenna*] 156 mg IM Q28D 12/07/18 [History Confirmed 12/07/18] Venlafaxine EXT RELEASE CAP* [Effexor Xr CAP*] 75 mg PO DAILY 12/07/18 [History Confirmed 12/07/18] PMH/Surg Hx/FS Hx/Imm Hx Previously Healthy: No Endocrine/Hematology History: Reports: Hx Thyroid Disease - related to medication. history of hypothyroid related to litihum, Other Endocrine/ Hematological Disorders - surgery on her veins left leg when she was 18 years old Denies: Hx Anticoagulant Therapy, Hx Blood Disorders, Hx Blood Transfusions, Hx Bone Marrow Disease, Hx Diabetes, Hx Systemic Lupus Erythematosus, Hx Sickle Cell Disease, Hx Anemia, Hx Unexplained Bleeding Cardiovascular History: Reports: Hx Hypertension Respiratory History: Reports: Hx Seasonal Allergies Denies: Hx Asthma, Hx Chronic Obstructive Pulmonary Disease (COPD) GI History: Denies: Hx Ulcer Sensory History: Denies: Hx Contacts or Glasses, Hx Glaucoma, Hx Hearing Aid Opthamlomology History: Denies: Hx Contacts or Glasses, Hx Glaucoma Neurological History: Reports: Hx Headaches, Hx Migraine Comment Only: Hx Seizures - per previous H&P was evaluated with long-term EEG for seizures Psychiatric History: Reports: Hx Anxiety, Hx Eating Disorder - binge eating D/O , Hx Depression, Hx Panic Disorder - Recent episodes, Hx Post Traumatic Stress Disorder, Hx Inpatient Treatment, Hx Community Mental Health Tx, Hx Bipolar Disorder, Hx Suicide Attempt, Other Psychiatric Issues/Disorders - Autism Spectrum Disorder Denies: Hx Attention Deficit Hyperactivity Disorder, Hx of Violent Episodes Against Others - Cancer History Hx Chemotherapy: No - Surgical History Surgery Procedure, Year, and Place: leg vein removal (age 18) Oral surgery related to teeth grinding. Infectious Disease History: No Infectious Disease History: Denies: Hx Hepatitis, Hx Human Immunodeficiency Virus (HIV), Hx of Known/ Suspected MRSA, Hx Shingles, Hx Tuberculosis, History Other Infectious Disease, Traveled Outside the [place] in Last 30 Days - Family History Known Family History: Positive: Other - Schizophrenia, depression, suicide Negative: Hypertension, Diabetes - Social History Lives: Alone Alcohol Use: Occasionally Alcohol Amount: denies Hx Substance Use: No Substance Use Type: Reports: None Hx Tobacco Use: Yes Smoking Status (MU): Former Smoker Type: Cigarettes Review of Systems Negative: Fever, Chills, Skin Diaphoresis Negative: Chest Pain Negative: Shortness Of Breath Gastrointestinal: Negative Positive: no symptoms reported. Negative: discharge, other - vaginal bleeding Negative: Myalgia Skin: Negative Neurological: Negative - dizziness Negative: Headache Positive: Depressed, Other - SI with a plan All Other Systems Reviewed And Are Negative: Yes Physical Exam - Summary Physical Exam Summary: Appearance: Well-appearing, no pain distress, obese, avoids eye contact Skin: Warm, color reflects adequate perfusion, dry, no evidence of self-harm Head: Normal Head/Face inspection, atraumatic Eyes: Conjunctiva clear, Pupils midpoint, EOMI, no nystagmus ENT: Normal inspection Neck: Supple, no nodes, no JVD Respiratory: Lungs clear, normal breath sounds, no respiratory distress Cardio: RRR, No murmur, pulses normal, brisk capillary refill Abdomen: Soft, nontender Bowel sounds: Present Musculoskeletal: Strength Intact/ROM intact, no calf tenderness, no edema. Psychological: Depressed affect Neuro: Alert, muscle tone normal, no focal deficit, speech clear, no sign of intoxication Triage Information Reviewed: Yes Vital Signs On Initial Exam: Initial Vitals Temp Pulse Resp BP Pulse Ox 99.4 F 124 20 152/98 97 12/07/18 13:53 12/07/18 13:53 12/07/18 13:53 12/07/18 13:53 12/07/18 13:53 Vital Signs Reviewed: Yes Diagnostics - Vital Signs Vital Signs Temp Pulse Resp BP Pulse Ox 12/07/18 13:53 99.4 F 124 20 152/98 97 - Laboratory Lab Results: Lab Results 12/07/18 Range/Units 14:29 WBC 6.8 (3.5-10.8) 10^3/uL RBC 4.75 (3.70-4.87) 10^6 /uL Hgb 14.1 (12.0-16.0) g/dL Hct 42 (35-47) % MCV 89 (80-97) fL MCH 30 (27-31) pg MCHC 34 (31-36) g/dL RDW 14 (10-15) % Plt Count 244 (150-450) 10^3/uL MPV 8.2 (7.4-10.4) fL Neut % (Auto) 69.3 % Lymph % (Auto) 19.9 % [place] % (Auto) 9.4 % Eos % (Auto) 0.7 % Baso % (Auto) 0.7 % Absolute Neuts (auto) 4.7 (1.5-7.7) 10^3/ul Absolute Lymphs (auto) 1.4 (1.0-4.8) 10^3/ul Absolute Monos (auto) 0.6 (0-0.8) 10^3/ul Absolute Eos (auto) 0.0 (0-0.6) 10^3/ul Absolute Basos (auto) 0.0 (0-0.2) 10^3/ul Absolute Nucleated RBC 0.0 10^3/ul Nucleated RBC % 0.0 Result Diagrams: 12/07/18 14:29 12/07/18 14:29 Lab Statement: Any lab studies that have been ordered have been reviewed, and results considered in the medical decision making process. Course/Dx - Course Course Of Treatment: Pt is a 38 y/o F presenting to the ED with a chief psychiatric complaint. She denies pain, fever, chills, diaphoresis, ESQUEDA, dizziness, urinary sx, SOB, CP, vaginal bleeding, or vaginal discharge. She reports suicidal thoughts with a plan to overdose on a mix of her Klonopin and other medication. On exam, the pt has no evidence of self-harm, her affect is depressed, and she is obese. Pt was maintained on 1:1 arms reach observation while in the ED. The pt will be voluntarily admitted to [facility] with a dx of schizoaffective disorder, as per Dr. Green. - Differential Dx/Clinical Impression Differential Diagnosis/HQI/PQRI: Positive: Acute Psychosis, Bipolar Disorder, Depression, Suicidal Ideation Provider Diagnosis: Schizoaffective disorder Discharge - Sign-Out/Discharge Documenting (check all that apply): Patient Departure - Discharge Plan Condition: Stable Disposition: PSYCHIATRIC FACILITY-[facility] [place] - Billing Disposition and Condition Condition: STABLE Disposition: Psychiatric Facility [facility] [place] - Attestation Statements Document Initiated by Scribe: Yes Documenting Scribe: Génesis Bone Provider For Whom Tanner is Documenting (Include Credential): Dr. Maria Ines Knowles MD. Scribe Attestation: Génesis Domingo, scribed for Dr. Maria Ines Knowles MD. on 12/09/18 at 0608. Scribe Documentation Reviewed: Yes Provider Attestation: The documentation as recorded by the scribe, Génesis Bone accurately reflects the service I personally performed and the decisions made by me, Dr. Maria Ines Knowles MD. Status of Scribe Document: Viewed
[2018-12-07 15:05] LABS: HCG Pregnancy < 0.60 mIU/mL
[2018-12-07 15:20] LABS: Acetaminophen < 15 mcg/mL; Alcohol < 10 mg/dL (<10); Salicylate < 2.50 mg/dL (<30)
[2018-12-07 15:35] LABS: TSH (Thyroid Stimulating Horm) 2.24 mcIU/mL (0.34-5.60)
[2018-12-07 16:06] LABS: Urine Appearance Cloudy; Urine Bacteria 1+ (Absent); Urine Bilirubin Negative (Negative); Urine Blood Negative (Negative); Urine Color Yellow; Urine Glucose Negative (Negative); Urine Ketones Negative (Negative); Urine Nitrite Negative (Negative); Urine Protein Negative (Negative); Urine Red Blood Cell Absent (Absent); Urine Specific Gravity 1.018 (1.010-1.030); Urine Squamous Epithelial Cell Present (Absent); Urine Urobilinogen Negative (Negative); Urine White Blood Cell Trace(0-5/hpf) (Absent)
[2018-12-07 16:19] LABS: Urine Benzodiazepine Screen None Detected (None Detect); Urine Opiates Screen None Detected (None Detect)
[2018-12-07] MEDS ORDERED: Acetaminophen TAB* 325 MG PO PRN (20:47)
[2018-12-07] MEDS: Topiramate TAB(*) 100 MG PO SCH (23:04)
[2018-12-08] MEDS: Topiramate TAB(*) 100 MG PO SCH ×2 (08:23→21:42)
[2018-12-08] MEDS: Venlafaxine EXT RELEASE CAP* 75 MG PO SCH (08:23)
[2018-12-08] MEDS: BuPROPion XL* 150 MG TAB.XL PO SCH (08:23)
[2018-12-08] MEDS: Vitamin THERAPEUTIC TAB PO SCH (08:23)
--- NOTE | 2018-12-08 17:59 | HP ---
HISTORY AND PHYSICAL: DATE OF ADMISSION: 12/07/18 SUPERVISING PSYCHIATRIST: Dr. Nehemias Green.* (DICTATED BY HOMAR MALHOTRA NP) JUSTIFICATION FOR ADMISSION: The patient presented to the emergency department with suicidal ideation and plan to overdose on medications. She merits hospitalization for immediate safety and stabilization. CHIEF COMPLAINT: "I was looking up how to overdose on the internet." HISTORY OF PRESENT ILLNESS: Kalee is a 38-year-old white female, domiciled, unemployed, with a history of schizoaffective disorder bipolar type, autism spectrum disorder, and binge eating disorder. She was discharged from our unit 8 days ago. She followed up with her outpatient psychiatrist and outpatient therapist and did start attending the [facility] program at [facility]. She reports returning home is "difficult" due to racing thoughts, decreased motivation, and urges to harm self. She reports increase in auditory hallucinations over this past weekend including command hallucinations. She states that yesterday was a very difficulty day in regards to symptomatology. She called her outpatient therapist and reported. The patient reports an increase in urges to cut herself, which she has not done so since she was a teenager. She reports that instead of harming herself she drank a bottle of wine this past weekend. She denies other alcohol use for at least 3 to 4 weeks. The patient reports decreased energy and is usually "exhausted" by 6 p.m. She states she usually wakes up by 6 a.m. The patient does report that she spends the much time in her bed. During last hospitalization, the patient brought up the idea of needing extended treatment at the [facility] facility. I inquired about her thoughts on that today and she responds ambivalently. The patient reports intent to return to PROS program if that is suggested at the time of discharge. The patient denies visual hallucinations, compulsions or obsessions. She denies phobias or fears. She endorses passive wish and vague suicidal ideation. She endorses ideal whispers as far as auditory hallucinations. The patient denies HI or . PAST PSYCHIATRIC HISTORY: The patient is known to this unit and to this literary writer due to previous admissions. This is her seventh admission on [facility]. She was last admitted on 11/17/18 and discharged on 11/29/18. She is a client of [facility] and has a well-documented history of schizoaffective disorder. She is assigned to Rebeca Saltese while her primary therapist is on medical leave. Her outpatient psychiatrist is Dr. Latasha Robledo. SUBSTANCE USE HISTORY: Kalee has a reported history of binge drinking. As stated above, she drank a bottle of wine on Thursday night, which should have been 12/04/18. She denies alcohol use since then. She has a cigarette very occasionally on social occasions. She denies other substances. 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 CURRENT MEDICATIONS: 1. Paliperidone Sustenna 156 mg IM q.28 days, next dose due 12/27/18. 2. Bupropion XL 150 mg p.o. q.a.m. 3. Clonazepam 0.5 mg p.o. b.i.d. p.r.n. anxiety. 4. Topiramate 100 mg p.o. b.i.d. 5. Venlafaxine ER 75 mg p.o. daily. ALLERGIES: AMOXICILLIN, AZITHROMYCIN, and kiwi. FAMILY PSYCHIATRIC HISTORY: Significant for her mother with schizoaffective disorder and completed suicide. SOCIAL HISTORY: The patient was raised in [place], [place]. Her parents when she was 1 years old. She lived with her mother and has no contact with her father since then. Her mother began a relationship with Kalee's now stepfather when she was 3 years old. They when Kalee was 10. The family moved to [place] 2 years later. Kalee's mother was hospitalized multiple times with schizoaffective disorder and completed suicide when Kalee was 27 years old. Kalee is currently unemployed. She graduated high school and college with a bachelor's degree in technology from [employer]. REVIEW OF SYSTEMS: Constitutional: Negative. No fevers, chills, or fatigue. ENT: Negative. Cardiovascular: Negative. Denies chest pain or palpitations. Respiratory: Negative. Denies shortness of breath or cough. Genitourinary: Negative. Musculoskeletal: Negative. Neurological: Negative. PHYSICAL EXAMINATION GENERAL APPEARANCE: The patient is well appearing and in no physical distress. VITAL SIGNS: Height 5 feet 7 inches, weight 320 pounds. T 98.3, pulse 102, respiration rate 16, O2 saturation 98%, BP 128/81. HEENT: Head and face: Normal head and face inspection. Eyes: Positive EOMI. PERRL bilaterally. Conjunctivae clear bilaterally. NECK: Supple. Full ROM. Trachea midline. RESPIRATORY: Lung sounds clear to auscultation, breath sounds present. CARDIOVASCULAR: Heart RRR. Pulses are symmetrical in both upper and lower extremities. MUSCULOSKELETAL: Normal strength. ROM intact. NEUROLOGICAL: Normal sensory and motor intact. Alert and oriented x3. Cerebellar function intact. SKIN: Warm, dry. Color reflects adequate perfusion. LABORATORY DATA: CBC within normal limits. Chemistry within normal limits. TSH normal at 2.24. HCG negative. Urinalysis: Trace leukocyte esterase, squamous epithelial cells present, urine bacteria 1+. Urine microbiology: No growth. Toxicology negative for salicylates, acetaminophen or alcohol and urine drug screen is negative. MENTAL STATUS EXAM: The patient is lying down upon approach, sits up and joins providers and participates fully in interview. She is poorly groomed and casually dressed in her own clothing. The patient is dysphoric with restricted affect. Alert and oriented x3. Concentration is poor. Memory is 3/3. Mood is dysphoric. Speech is soft and articulate. Thought process is circumstantial, otherwise coherent. Thought content is positive for passive wish, vague suicidal ideation. She endorses auditory hallucinations. Denies visual hallucinations. She denies HI or . Her insight is poor. Judgment is poor. Fund of knowledge is excellent. DIAGNOSES: 1. Schizoaffective disorder, bipolar type. 2. Autism spectrum disorder. 3. Consider cluster B pathology. ASSESSMENT: Kalee is a 38-year-old white female, domiciled, single, and unemployed. She presented to the emergency department with suicidal ideation 1 week after being discharged from the [facility]. The patient started venlafaxine through her outpatient psychiatrist following discharge from the hospital. She endorses auditory hallucinations including command hallucinations to suicide. The patient briefly started attending [facility] program and would benefit from continuing to do so after discharge. PLAN: The patient is admitted to adult behavioral services unit on voluntary status. Code status is full. She is placed on 15-minute checks for her safety. She is encouraged to participate in supportive milieu, individual sessions with staff, and psychoeducational groups. We will resume current outpatient medications. The patient will be encouraged to have a brief hospitalization and return to [facility] programming at [facility]. Estimated length of stay is 3 to 5 days. Discharge planning will include her outpatient providers. HOMAR MALHOTRA, JUAN M [id number]/CPS #: [id number] MAYTE
[2018-12-08] MEDS: clonazePAM TAB(*) 0.5 MG PO PRN (20:07)
[2018-12-09] MEDS: clonazePAM TAB(*) 0.5 MG PO PRN ×2 (08:44→21:35)
[2018-12-09] MEDS: Vitamin THERAPEUTIC TAB PO SCH (08:45)
[2018-12-09] MEDS: Topiramate TAB(*) 100 MG PO SCH ×2 (08:45→21:37)
[2018-12-09] MEDS: Venlafaxine EXT RELEASE CAP* 75 MG PO SCH (08:45)
[2018-12-09] MEDS: BuPROPion XL* 150 MG TAB.XL PO SCH (08:45)
--- NOTE | 2018-12-09 10:43 | PN ---
Subjective - Subjective Date of Service: 12/09/18 Service Type: 88811 Hosp care 15 min low complexity Subjective: Patient sitting on bed upon approach. She reports fatigue and attempting to make herself stay awake. Patient praised and encouraged to continue to refrain from lying down during the day. She endorses suicidal thoughts and hopelessness /helplessness. We discuss logistics of referral to [facility], including two weeks of acute hospitalization and meeting criteria. Patient states understanding and agreement. Objective - General Observations Appearance: Well Groomed Stature: Overweight Posture: Slumped Eye Contact: Average Behavior/Activity: Slowed - Interaction Observations Attitude Towards Examiner: Cooperative Stated Mood: Dysphoric Affect: Blunted Speech Pattern/Tone: Quiet Volume Thought Process: Impoverished Perception: WNL Thought Content: Preoccupation/Ruminations, Depressive, Self-Deprecatory Thought Process: Lethality: Passive Wish Hallucination Type: Denies Delusion Type: Denies - Cognitive Function Orientation: A&O x 4 Level of Consciousness: Alert Cognition: WNL Estimated Intelligence: Normal Insight: WNL Judgment Within Normal Limits: No Ability to Make Reasonable Decisions: Serverely Impaired - Medication Compliance Cooperative with Inpatient Medication Regimen: Yes - Group Participation Participates in Group Activities: Yes Assessment - Assessment Merits Inpatient Hospitalization: For Immediate Safety, For Stabilization Inpatient DSM-V Dx: F25.0 Clinical Impression: 38yo wf, domiciled, single, never and recently unemployed. She presented to ED self-referred due to SI and plan to OD on medications one week after discharge from [facility]. Patient reports worsening symptoms, including AH and command hallucinations. We have resumed outpatient medications and are considering referral to [facility] due to multiple psychiatric admissions in the past year. Plan - Plan Treatment Plan: Name: SALLY DAVIS Birthdate: 1980 [id number] continue acute intensive psychiatric treatment. may decrease to q30min observation. continue current medications and encourage improved sleep hygiene. consider referral to [facility] for longer term stabilization. Continued Medication Management: Continue Outpt Medication Medications: Current Medications Acetaminophen (Tylenol Tab*) 650 mg PO Q4H PRN PRN Reason: PAIN or TEMP > 101 F Al Hydrox/Mg Hydrox/Simethicone (Maalox Plus*) 30 ml PO Q4H PRN PRN Reason: INDIGESTION Bupropion HCl (Wellbutrin Xl *) 150 mg PO QAM MIGUEL Last Admin: 12/09/18 08:45 Dose: 150 mg Clonazepam (Klonopin Tab(*)) 0.5 mg PO BID PRN PRN Reason: ANXIETY/ AGITATION Last Admin: 12/09/18 08:44 Dose: 0.5 mg Multivitamins (Theragran Tab*) 1 tab PO DAILY [facility] Last Admin: 12/09/18 08:45 Dose: 1 tab Paliperidone Palmitate (Invega Sustenna*) 156 mg IM Q28D [facility] Topiramate (Topamax(*)) 100 mg PO BID [facility] Last Admin: 12/09/18 08:45 Dose: 100 mg Venlafaxine HCl (Effexor Xr Cap*) 75 mg PO DAILY [facility] Last Admin: 12/09/18 08:45 Dose: 75 mg - Discharge Plan Discharge Plan: Consider Longer Term Tx
--- NOTE | 2018-12-09 11:07 | PN ---
[facility]: Group Therapy Note - Service Type Service Type: [id number] Group Psychotherapy - Cognitive Behavioral Group Therapy ( CBT):Patient was attentive and participatory in CBT programming this morning, and remained in good behavioral control. Patient expressed positive insights regarding relevant treatment interventions and goals.
[2018-12-10] MEDS: Vitamin THERAPEUTIC TAB PO SCH (08:54)
[2018-12-10] MEDS: Venlafaxine EXT RELEASE CAP* 75 MG PO SCH (08:54)
[2018-12-10] MEDS: clonazePAM TAB(*) 0.5 MG PO PRN ×2 (08:54→20:22)
[2018-12-10] MEDS: BuPROPion XL* 150 MG TAB.XL PO SCH (08:54)
[2018-12-10] MEDS: Topiramate TAB(*) 100 MG PO SCH ×2 (08:54→20:21)
[2018-12-10 09:14] LABS: HDL Cholesterol 50.2 mg/dL
--- NOTE | 2018-12-10 13:45 | PN ---
Subjective - Subjective Date of Service: 12/10/18 Service Type: 79626 Hosp care 15 min low complexity Subjective: Patient endorses moderate depressed mood and anxiety, especially upon waking. She endorses AH and that "this is embarrassing." Patient praised for participating in programming and encouraged to continue. Notified of plan to convert to 2PC status and refer to state hospitalization. Patient states understanding of process. Objective - General Observations Appearance: Well Groomed Stature: Overweight Posture: Slumped Eye Contact: Intermittent Behavior/Activity: Slowed - Interaction Observations Attitude Towards Examiner: Cooperative Stated Mood: Dysphoric Affect: Flat Speech Pattern/Tone: Quiet Volume Thought Process: Impoverished Perception: WNL Thought Content: Preoccupation/Ruminations, Depressive, Paranoid, Self- Deprecatory Thought Process: Lethality: Paranoid Ideation Hallucination Type: Auditory Delusion Type: Denies - Cognitive Function Orientation: A&O x 4 Level of Consciousness: Alert Cognition: WNL Estimated Intelligence: Normal Insight: WNL Judgment Within Normal Limits: No Ability to Make Reasonable Decisions: Serverely Impaired - Medication Compliance Cooperative with Inpatient Medication Regimen: Yes - Group Participation Participates in Group Activities: Yes Assessment - Assessment Merits Inpatient Hospitalization: For Immediate Safety, For Stabilization Inpatient DSM-V Dx: F25.0 Clinical Impression: 38yo wf, domiciled, single, never and recently unemployed. She presented to ED self-referred due to SI and plan to OD on medications one week after discharge from [facility]. Patient reports worsening symptoms, including AH and command hallucinations. We have resumed outpatient medications and are considering [facility] due to multiple psychiatric admissions in the past year. Plan - Plan Treatment Plan: Name: SALLY DAVIS Birthdate: 1980 [id number] continue acute intensive psychiatric treatment. may decrease to q30min observation, allow staff pass and computer use. convert to 2PC status. continue current medications and encourage improved sleep hygiene. consider referral to state [facility] for longer term stabilization. Continued Medication Management: Continue Outpt Medication Medications: Current Medications Acetaminophen (Tylenol Tab*) 650 mg PO Q4H PRN PRN Reason: PAIN or TEMP > 101 F Al Hydrox/Mg Hydrox/Simethicone (Maalox Plus*) 30 ml PO Q4H PRN PRN Reason: INDIGESTION Bupropion HCl (Wellbutrin Xl *) 150 mg PO QAM [facility] Last Admin: 12/10/18 08:54 Dose: 150 mg Clonazepam (Klonopin Tab(*)) 0.5 mg PO BID PRN PRN Reason: ANXIETY/ AGITATION Last Admin: 12/10/18 08:54 Dose: 0.5 mg Multivitamins (Theragran Tab*) 1 tab PO DAILY [facility] Last Admin: 12/10/18 08:54 Dose: 1 tab Paliperidone Palmitate (Invega Sustenna*) 156 mg IM Q28D [facility] Topiramate (Topamax(*)) 100 mg PO BID [facility] Last Admin: 12/10/18 08:54 Dose: 100 mg Venlafaxine HCl (Effexor Xr Cap*) 75 mg PO DAILY [facility] Last Admin: 12/10/18 08:54 Dose: 75 mg - Discharge Plan Discharge Plan: Consider Longer Term Tx
[2018-12-11] MEDS: BuPROPion XL* 150 MG TAB.XL PO SCH (08:44)
[2018-12-11] MEDS: Topiramate TAB(*) 100 MG PO SCH ×2 (08:44→20:35)
[2018-12-11] MEDS: Venlafaxine EXT RELEASE CAP* 75 MG PO SCH (08:44)
[2018-12-11] MEDS: Vitamin THERAPEUTIC TAB PO SCH (08:44)
[2018-12-11] MEDS: clonazePAM TAB(*) 0.5 MG PO PRN ×2 (08:46→20:36)
--- NOTE | 2018-12-11 19:21 | PN ---
Subjective - Subjective Date of Service: 12/11/18 Service Type: [id number] Hosp care 15 min low complexity Subjective: Sleeping a lot, not rested when awake. Found in bed. Not now having CAH, last was 3 days ago. Still has SI, no plan, and would not do it here. Mood "low". Objective - General Observations Appearance: Disheveled Appears Stated Age: Yes Stature: WNL Posture: WNL Eye Contact: Avoidant Behavior/Activity: Slowed - Interaction Observations Attitude Towards Examiner: Cooperative Stated Mood: Dysphoric Affect: Flat Speech Pattern/Tone: Clear, Appropriate, Normal Volume Thought Process: Coherent Perception: WNL Thought Content: WNL Thought Process: Lethality: Passive Wish Hallucination Type: Auditory - "just like a whispering" Delusion Type: None - Cognitive Function Orientation: A&O x 4 Level of Consciousness: Awake, Alert, Appropriate, Drowsy Cognition: WNL, Impaired Memory - attributed to ECT <= 2 years ago Estimated Intelligence: Normal Insight: WNL Judgment Within Normal Limits: Yes - Medication Compliance Cooperative with Inpatient Medication Regimen: Yes - Group Participation Participates in Group Activities: Yes Assessment - Assessment Merits Inpatient Hospitalization: For Immediate Safety, For Stabilization, For Ongoing Evaluation, Pending Safe DC Plan Inpatient DSM-V Dx: F25.0 Clinical Impression: 38yo wf, domiciled, single, never and recently unemployed. She presented to ED self-referred due to SI and plan to OD on medications one week after discharge from [facility]. Patient reports worsening symptoms, including AH and command hallucinations. We have resumed outpatient medications and are considering referral to [facility] due to multiple psychiatric admissions in the past year. Plan - Plan Treatment Plan: Name: SALLY DAVIS Birthdate: 1980 [id number] continue acute intensive psychiatric treatment. may decrease to q30min observation, allow staff pass and computer use. convert to 2PC status. continue current medications and encourage improved sleep hygiene. [facility]. Declined any change of care plan on Thursday. Medications: Current Medications Acetaminophen (Tylenol Tab*) 650 mg PO Q4H PRN PRN Reason: PAIN or TEMP > 101 F Al Hydrox/Mg Hydrox/Simethicone (Maalox Plus*) 30 ml PO Q4H PRN PRN Reason: INDIGESTION Bupropion HCl (Wellbutrin Xl *) 150 mg PO QAM [facility] Last Admin: 12/11/18 08:44 Dose: 150 mg Clonazepam (Klonopin Tab(*)) 0.5 mg PO BID PRN PRN Reason: ANXIETY/ AGITATION Last Admin: 12/11/18 08:46 Dose: 0.5 mg Multivitamins (Theragran Tab*) 1 tab PO DAILY [facility] Last Admin: 12/11/18 08:44 Dose: 1 tab Paliperidone Palmitate (Invega Sustenna*) 156 mg IM Q28D [facility] Topiramate (Topamax(*)) 100 mg PO BID [facility] Last Admin: 12/11/18 08:44 Dose: 100 mg Venlafaxine HCl (Effexor Xr Cap*) 75 mg PO DAILY [facility] Last Admin: 12/11/18 08:44 Dose: 75 mg - Discharge Plan Discharge Plan: Consider Longer Term Tx
[2018-12-12] MEDS: clonazePAM TAB(*) 0.5 MG PO PRN ×2 (08:24→20:16)
[2018-12-12] MEDS: Venlafaxine EXT RELEASE CAP* 75 MG PO SCH (08:24)
[2018-12-12] MEDS: Vitamin THERAPEUTIC TAB PO SCH (08:24)
[2018-12-12] MEDS: Topiramate TAB(*) 100 MG PO SCH ×2 (08:24→20:16)
[2018-12-12] MEDS: BuPROPion XL* 150 MG TAB.XL PO SCH (08:24)
[2018-12-13] MEDS: Venlafaxine EXT RELEASE CAP* 75 MG PO SCH (08:25)
[2018-12-13] MEDS: Vitamin THERAPEUTIC TAB PO SCH (08:25)
[2018-12-13] MEDS: BuPROPion XL* 150 MG TAB.XL PO SCH (08:25)
[2018-12-13] MEDS: Topiramate TAB(*) 100 MG PO SCH ×2 (08:25→20:08)
[2018-12-13] MEDS: clonazePAM TAB(*) 0.5 MG PO PRN ×2 (08:25→20:08)
--- NOTE | 2018-12-13 13:34 | PN ---
Subjective - Subjective Date of Service: 12/13/18 Service Type: [id number] Hosp care 15 min low complexity Subjective: patient presents as dysphoric with flat affect. She reports indigestion and is notified of available prn medication for this. She continues to endorse suicidal ideation and hopelessness. Patient is intermittently participating in group programming. She expresses need to be seclusive to her room when a specific peer is agitated and causing disruption to the unit. Objective - General Observations Appearance: Well Groomed Stature: Overweight Posture: Slumped Behavior/Activity: Slowed - Interaction Observations Attitude Towards Examiner: Cooperative Stated Mood: Dysphoric Affect: Flat Speech Pattern/Tone: Clear, Quiet Volume Thought Process: Impoverished Perception: WNL Thought Content: Depressive, Self-Deprecatory Thought Process: Lethality: Passive Wish, Suicidal Planning Hallucination Type: Auditory Delusion Type: Denies - Cognitive Function Orientation: A&O x 4 Level of Consciousness: Alert Cognition: Impaired Attention/Concentration Estimated Intelligence: Normal Insight: WNL Judgment Within Normal Limits: No Ability to Make Reasonable Decisions: Serverely Impaired - Medication Compliance Cooperative with Inpatient Medication Regimen: Yes - Group Participation Participates in Group Activities: Partial Assessment - Assessment Merits Inpatient Hospitalization: For Immediate Safety, For Stabilization Inpatient DSM-V Dx: F25.0 Clinical Impression: 38yo wf, domiciled, single, never and recently unemployed. She presented to ED self-referred due to SI and plan to OD on medications one week after discharge from [facility]. Patient reports worsening symptoms, including AH and command hallucinations. We have resumed outpatient medications and are considering referral to [facility] due to multiple psychiatric admissions in the past year. Plan - Plan Treatment Plan: Name: SALLY DAVIS Birthdate: 1980 [id number] continue acute intensive psychiatric treatment. may decrease to q30min observation, allow staff pass and computer use. convert to 2PC status. continue current medications and encourage improved sleep hygiene. [facility] . Continued Medication Management: Continue Outpt Medication Medications: Current Medications Acetaminophen (Tylenol Tab*) 650 mg PO Q4H PRN PRN Reason: PAIN or TEMP > 101 F Al Hydrox/Mg Hydrox/Simethicone (Maalox Plus*) 30 ml PO Q4H PRN PRN Reason: INDIGESTION Bupropion HCl (Wellbutrin Xl *) 150 mg PO QAM [facility] Last Admin: 12/13/18 08:25 Dose: 150 mg Clonazepam (Klonopin Tab(*)) 0.5 mg PO BID PRN PRN Reason: ANXIETY/ AGITATION Last Admin: 12/13/18 08:25 Dose: 0.5 mg Multivitamins (Theragran Tab*) 1 tab PO DAILY [facility] Last Admin: 12/13/18 08:25 Dose: 1 tab Paliperidone Palmitate (Invega Sustenna*) 156 mg IM Q28D [facility] Topiramate (Topamax(*)) 100 mg PO BID [facility] Last Admin: 12/13/18 08:25 Dose: 100 mg Venlafaxine HCl (Effexor Xr Cap*) 75 mg PO DAILY [facility] Last Admin: 12/13/18 08:25 Dose: 75 mg - Discharge Plan Discharge Plan: Inpatient Hospitalization
[2018-12-13] MEDS: Al Hydrox/Mg Hydrox/Simet LIQ* 30 ML UDC PO PRN (14:38)
[2018-12-14] MEDS: clonazePAM TAB(*) 0.5 MG PO PRN ×2 (08:27→21:41)
[2018-12-14] MEDS: BuPROPion XL* 150 MG TAB.XL PO SCH (08:27)
[2018-12-14] MEDS: Venlafaxine EXT RELEASE CAP* 75 MG PO SCH (08:27)
[2018-12-14] MEDS: Topiramate TAB(*) 100 MG PO SCH ×2 (08:27→21:41)
[2018-12-14] MEDS: Vitamin THERAPEUTIC TAB PO SCH (08:27)
[2018-12-15] MEDS: BuPROPion XL* 150 MG TAB.XL PO SCH (08:24)
[2018-12-15] MEDS: Vitamin THERAPEUTIC TAB PO SCH (08:24)
[2018-12-15] MEDS: Venlafaxine EXT RELEASE CAP* 75 MG PO SCH (08:25)
[2018-12-15] MEDS: Topiramate TAB(*) 100 MG PO SCH ×2 (08:25→20:32)
--- NOTE | 2018-12-15 11:51 | PN ---
BSU: Group Therapy Note - Service Type Service Type: [id number] Group Psychotherapy - Group Psychotherapy Note: Kalee presented with moments of improved affect in this morning's group, but continue to have difficulty articulating goals. She typically presents with flat and unvariable affect.
--- NOTE | 2018-12-15 15:59 | PN ---
BSU: Group Therapy Note - Service Type Service Type: [id number] Group Psychotherapy - Medication Education Group: Patient attended group and presented with flat affect that did not vary with discussion. Although responsive to direct prompts to respond to questions, patient did not engage in spontaneous conversation.
[2018-12-15] MEDS: Al Hydrox/Mg Hydrox/Simet LIQ* 30 ML UDC PO PRN (16:31)
[2018-12-15] MEDS: clonazePAM TAB(*) 0.5 MG PO PRN (20:32)
[2018-12-16] MEDS: clonazePAM TAB(*) 0.5 MG PO PRN ×2 (08:55→20:57)
[2018-12-16] MEDS: BuPROPion XL* 150 MG TAB.XL PO SCH (08:55)
[2018-12-16] MEDS: Venlafaxine EXT RELEASE CAP* 75 MG PO SCH (08:55)
[2018-12-16] MEDS: Vitamin THERAPEUTIC TAB PO SCH (08:55)
[2018-12-16] MEDS: Topiramate TAB(*) 100 MG PO SCH ×2 (08:55→20:55)
--- NOTE | 2018-12-16 11:32 | PN ---
BSU: Group Therapy Note - Service Type Service Type: [id number] Group Psychotherapy - Cognitive Behavioral Group Therapy ( CBT):Patient was attentive and participatory in CBT programming this morning, and remained in good behavioral control. Patient expressed positive insights regarding relevant treatment interventions and goals.
[2018-12-17] MEDS: Venlafaxine EXT RELEASE CAP* 75 MG PO SCH (08:41)
[2018-12-17] MEDS: Vitamin THERAPEUTIC TAB PO SCH (08:41)
[2018-12-17] MEDS: Topiramate TAB(*) 100 MG PO SCH ×2 (08:41→20:39)
[2018-12-17] MEDS: clonazePAM TAB(*) 0.5 MG PO PRN ×2 (08:41→20:42)
[2018-12-17] MEDS: BuPROPion XL* 150 MG TAB.XL PO SCH (08:41)
--- NOTE | 2018-12-17 15:42 | PN ---
Subjective - Subjective Date of Service: 12/17/18 Service Type: [id number] Hosp care 15 min low complexity Subjective: Patient reports feeling "depressed" and "numb." She endorses passive wish , SI and states she does not have future goals. She has been intermittently attending programming and given feedback to increase attendance. She reports going to bed "early" and states she tends to retreat to her room after dinner but gets up for HS medications. Patient identified some opposite actions she has done and agrees to add to the list over the weekend. Objective - General Observations Appearance: Disheveled Stature: Overweight Posture: Slumped Eye Contact: Average Behavior/Activity: Slowed - Interaction Observations Attitude Towards Examiner: Cooperative, Anxious Stated Mood: Dysphoric Affect: Blunted Speech Pattern/Tone: Clear, Quiet Volume Thought Process: Impoverished Perception: WNL Thought Content: Preoccupation/Ruminations, Depressive, Self-Deprecatory Thought Process: Lethality: Passive Wish, Suicidal Planning Hallucination Type: Denies Delusion Type: Denies - Cognitive Function Orientation: A&O x 4 Level of Consciousness: Alert Cognition: Impaired Attention/Concentration Estimated Intelligence: Normal Insight: WNL Judgment Within Normal Limits: No Ability to Make Reasonable Decisions: Serverely Impaired - Medication Compliance Cooperative with Inpatient Medication Regimen: Yes - Group Participation Participates in Group Activities: Partial Assessment - Assessment Merits Inpatient Hospitalization: For Immediate Safety, For Stabilization Inpatient DSM-V Dx: F25.0 Clinical Impression: 38yo wf, domiciled, single, never and recently unemployed. She presented to ED self-referred due to SI and plan to OD on medications one week after discharge from [facility]. Patient reports worsening symptoms, including AH and command hallucinations. We have resumed outpatient medications and are considering referral to [facility] due to multiple psychiatric admissions in the past year. Plan - Plan Treatment Plan: Name: SALLY DAVIS Birthdate: 1980 [id number] continue acute intensive psychiatric treatment. may decrease to q30min observation, allow staff pass and computer use. convert to 2PC status. continue current medications and encourage improved sleep hygiene. make referral to [facility] for longer term stabilization. Continued Medication Management: Continue Outpt Medication Medications: Current Medications Acetaminophen (Tylenol Tab*) 650 mg PO Q4H PRN PRN Reason: PAIN or TEMP > 101 F Al Hydrox/Mg Hydrox/Simethicone (Maalox Plus*) 30 ml PO Q4H PRN PRN Reason: INDIGESTION Last Admin: 12/15/18 16:31 Dose: 30 ml Bupropion HCl (Wellbutrin Xl *) 150 mg PO QAM [facility] Last Admin: 12/17/18 08:41 Dose: 150 mg Clonazepam (Klonopin Tab(*)) 0.5 mg PO BID PRN PRN Reason: ANXIETY/ AGITATION Last Admin: 12/17/18 08:41 Dose: 0.5 mg Multivitamins (Theragran Tab*) 1 tab PO DAILY [facility] Last Admin: 12/17/18 08:41 Dose: 1 tab Paliperidone Palmitate (Invega Sustenna*) 156 mg IM Q28D [facility] Topiramate (Topamax(*)) 100 mg PO BID [facility] Last Admin: 12/17/18 08:41 Dose: 100 mg Venlafaxine HCl (Effexor Xr Cap*) 75 mg PO DAILY [facility] Last Admin: 12/17/18 08:41 Dose: 75 mg - Discharge Plan Discharge Plan: Consider Longer Term Tx
[2018-12-18] MEDS: Venlafaxine EXT RELEASE CAP* 75 MG PO SCH (08:29)
[2018-12-18] MEDS: Vitamin THERAPEUTIC TAB PO SCH (08:29)
[2018-12-18] MEDS: Topiramate TAB(*) 100 MG PO SCH ×2 (08:29→22:51)
[2018-12-18] MEDS: clonazePAM TAB(*) 0.5 MG PO PRN ×2 (08:29→22:51)
[2018-12-18] MEDS: BuPROPion XL* 150 MG TAB.XL PO SCH (08:29)
[2018-12-19] MEDS: clonazePAM TAB(*) 0.5 MG PO PRN ×2 (09:05→20:30)
[2018-12-19] MEDS: Topiramate TAB(*) 100 MG PO SCH ×2 (09:05→20:30)
[2018-12-19] MEDS: Venlafaxine EXT RELEASE CAP* 75 MG PO SCH (09:05)
[2018-12-19] MEDS: Vitamin THERAPEUTIC TAB PO SCH (09:05)
[2018-12-19] MEDS: BuPROPion XL* 150 MG TAB.XL PO SCH (09:05)
[2018-12-20] MEDS: clonazePAM TAB(*) 0.5 MG PO PRN (08:21)
[2018-12-20] MEDS: Topiramate TAB(*) 100 MG PO SCH ×2 (08:22→21:33)
[2018-12-20] MEDS: Vitamin THERAPEUTIC TAB PO SCH (08:22)
[2018-12-20] MEDS: BuPROPion XL* 150 MG TAB.XL PO SCH (08:22)
[2018-12-20] MEDS: Venlafaxine EXT RELEASE CAP* 75 MG PO SCH (08:22)
--- NOTE | 2018-12-20 10:05 | PN ---
Subjective - Subjective Date of Service: 12/20/18 Service Type: [id number] Hosp care 25 min moderate complexity Subjective: Patient presents as dysphoric with blunted affect. She states "i'm still depressed" and endorses passive suicidal ideation. Notified of referral made to [facility]. Encouraged to continue programming and avoid lying down during daytime hours. Objective - General Observations Appearance: Unkempt Stature: Overweight Posture: Slumped Eye Contact: Intermittent Behavior/Activity: Slowed - Interaction Observations Attitude Towards Examiner: Cooperative Stated Mood: Dysphoric Affect: Blunted Speech Pattern/Tone: Quiet Volume Thought Process: Impoverished Perception: WNL Thought Content: Preoccupation/Ruminations, Depressive, Self-Deprecatory Thought Process: Lethality: Passive Wish, Suicidal Planning Hallucination Type: Denies Delusion Type: Denies - Cognitive Function Orientation: A&O x 4 Level of Consciousness: Alert Cognition: Impaired Attention/Concentration Estimated Intelligence: Normal Insight: WNL Judgment Within Normal Limits: No Ability to Make Reasonable Decisions: Serverely Impaired - Medication Compliance Cooperative with Inpatient Medication Regimen: Yes - Group Participation Participates in Group Activities: Yes Assessment - Assessment Merits Inpatient Hospitalization: For Immediate Safety, For Stabilization Inpatient DSM-V Dx: F25.0 Clinical Impression: 38yo wf, domiciled, single, never and recently unemployed with history of schizoaffective d/o, depressed type. She presented to ED self-referred due to SI and plan to OD on medications one week after discharge from [facility]. Patient reports worsening symptoms, including AH and command hallucinations. We have resumed outpatient medications and are making a referral to [facility] due to multiple psychiatric admissions in the past year. Plan - Plan Treatment Plan: Name: SALLY DAVIS Birthdate: 1980 [id number] continue acute intensive psychiatric treatment. may decrease to q30min observation, allow staff pass and computer use. convert to 2PC status. continue current medications and encourage improved sleep hygiene. make referral to [facility] for longer term stabilization. Continued Medication Management: Continue Outpt Medication Medications: Current Medications Acetaminophen (Tylenol Tab*) 650 mg PO Q4H PRN PRN Reason: PAIN or TEMP > 101 F Al Hydrox/Mg Hydrox/Simethicone (Maalox Plus*) 30 ml PO Q4H PRN PRN Reason: INDIGESTION Last Admin: 12/15/18 16:31 Dose: 30 ml Bupropion HCl (Wellbutrin Xl *) 150 mg PO QAM [facility] Last Admin: 12/20/18 08:22 Dose: 150 mg Clonazepam (Klonopin Tab(*)) 0.5 mg PO BID PRN PRN Reason: ANXIETY/ AGITATION Last Admin: 12/20/18 08:21 Dose: 0.5 mg Multivitamins (Theragran Tab*) 1 tab PO DAILY [facility] Last Admin: 12/20/18 08:22 Dose: 1 tab Paliperidone Palmitate (Invega Sustenna*) 156 mg IM Q28D [facility] Topiramate (Topamax(*)) 100 mg PO BID [facility] Last Admin: 12/20/18 08:22 Dose: 100 mg Venlafaxine HCl (Effexor Xr Cap*) 75 mg PO DAILY [facility] Last Admin: 12/20/18 08:22 Dose: 75 mg - Discharge Plan Discharge Plan: Consider Longer Term Tx
[2018-12-21] MEDS: clonazePAM TAB(*) 0.5 MG PO PRN (08:14)
[2018-12-21] MEDS: BuPROPion XL* 150 MG TAB.XL PO SCH (08:14)
[2018-12-21] MEDS: Venlafaxine EXT RELEASE CAP* 75 MG PO SCH (08:14)
[2018-12-21] MEDS: Topiramate TAB(*) 100 MG PO SCH ×2 (08:14→21:54)
[2018-12-21] MEDS: Vitamin THERAPEUTIC TAB PO SCH (08:14)
--- NOTE | 2018-12-21 13:06 | PN ---
BSU: Group Therapy Note - Service Type Service Type: [id number] Group Psychotherapy - Cognitive Behavioral Group Therapy ( CBT):Patient attended CBT programming this morning and presented with flat affect that did not vary with discussion. Although responsive to direct prompts to respond to questions, patient did not engage in spontaneous conversation.
--- NOTE | 2018-12-21 20:53 | PN ---
Subjective - Subjective Date of Service: 12/21/18 Service Type: [id number] Hosp care 25 min moderate complexity Subjective: Patient endorses "having a good day" and relates this to laughing with a select peer. She is quick to say that this is not a typical day and that she is generally depressed. She reports past trial of lithium and agrees to trial again. She reports desire to continue to pursue state hospitalization. She is encouraged to participate fully in programming, continue working on CBT homework. Objective - General Observations Appearance: Well Groomed Stature: Overweight Posture: Slumped Eye Contact: Average Behavior/Activity: Slowed - Interaction Observations Attitude Towards Examiner: Cooperative, Anxious Stated Mood: Euthymic Affect: Bright Speech Pattern/Tone: Clear, Appropriate, Normal Volume Thought Process: Coherent, Circumstantial Perception: WNL Thought Content: Depressive, Self-Deprecatory Hallucination Type: None Delusion Type: None - Cognitive Function Orientation: A&O x 4 Level of Consciousness: Alert Cognition: Impaired Attention/Concentration Estimated Intelligence: Normal Insight: WNL Judgment Within Normal Limits: No Ability to Make Reasonable Decisions: Serverely Impaired - Medication Compliance Cooperative with Inpatient Medication Regimen: Yes - Group Participation Participates in Group Activities: Partial Assessment - Assessment Merits Inpatient Hospitalization: For Immediate Safety, For Stabilization Inpatient DSM-V Dx: F25.0 Clinical Impression: 38yo wf, domiciled, single, never and recently unemployed with history of schizoaffective d/o, depressed type. She presented to ED self-referred due to SI and plan to OD on medications one week after discharge from [facility]. Patient reports worsening symptoms, including AH and command hallucinations. We have resumed outpatient medications and are making a referral to [facility] due to multiple psychiatric admissions in the past year. Plan - Plan Treatment Plan: Name: SALLY DAVIS Birthdate: 1980 [id number] continue acute intensive psychiatric treatment. may decrease to q30min observation, allow staff pass and computer use. convert to 2PC status. pending referral to [facility] for longer term stabilization. start lithium 300mg qhs Continued Medication Management: Start Medication Medications: Current Medications Acetaminophen (Tylenol Tab*) 650 mg PO Q4H PRN PRN Reason: PAIN or TEMP > 101 F Al Hydrox/Mg Hydrox/Simethicone (Maalox Plus*) 30 ml PO Q4H PRN PRN Reason: INDIGESTION Last Admin: 12/15/18 16:31 Dose: 30 ml Bupropion HCl (Wellbutrin Xl *) 150 mg PO QAM [facility] Last Admin: 12/21/18 08:14 Dose: 150 mg Clonazepam (Klonopin Tab(*)) 0.5 mg PO BID PRN PRN Reason: ANXIETY Last Admin: 12/21/18 08:14 Dose: 0.5 mg Multivitamins (Theragran Tab*) 1 tab PO DAILY [facility] Last Admin: 12/21/18 08:14 Dose: 1 tab Paliperidone Palmitate (Invega Sustenna*) 156 mg IM Q28D [facility] Topiramate (Topamax(*)) 100 mg PO BID [facility] Last Admin: 12/21/18 08:14 Dose: 100 mg Venlafaxine HCl (Effexor Xr Cap*) 75 mg PO DAILY [facility] Last Admin: 12/21/18 08:14 Dose: 75 mg - Discharge Plan Discharge Plan: Inpatient Hospitalization
[2018-12-21] MEDS: Lithium Carbonate TAB* 300 MG PO SCH (21:54)
[2018-12-22] MEDS: Vitamin THERAPEUTIC TAB PO SCH (08:22)
[2018-12-22] MEDS: BuPROPion XL* 150 MG TAB.XL PO SCH (08:22)
[2018-12-22] MEDS: Venlafaxine EXT RELEASE CAP* 75 MG PO SCH (08:22)
[2018-12-22] MEDS: Topiramate TAB(*) 100 MG PO SCH ×2 (08:22→20:11)
[2018-12-22] MEDS: clonazePAM TAB(*) 0.5 MG PO PRN (20:11)
[2018-12-22] MEDS: Lithium Carbonate TAB* 300 MG PO SCH (20:11)
[2018-12-23] MEDS: BuPROPion XL* 150 MG TAB.XL PO SCH (08:42)
[2018-12-23] MEDS: Topiramate TAB(*) 100 MG PO SCH ×2 (08:42→21:56)
[2018-12-23] MEDS: Vitamin THERAPEUTIC TAB PO SCH (08:42)
[2018-12-23] MEDS: Venlafaxine EXT RELEASE CAP* 75 MG PO SCH (08:42)
[2018-12-23] MEDS: clonazePAM TAB(*) 0.5 MG PO PRN ×2 (08:44→21:55)
[2018-12-23] MEDS: Lithium Carbonate TAB* 300 MG PO SCH (21:56)
[2018-12-24] MEDS: Topiramate TAB(*) 100 MG PO SCH ×2 (08:41→20:44)
[2018-12-24] MEDS: clonazePAM TAB(*) 0.5 MG PO PRN ×2 (08:41→17:36)
[2018-12-24] MEDS: BuPROPion XL* 150 MG TAB.XL PO SCH (08:41)
[2018-12-24] MEDS: Venlafaxine EXT RELEASE CAP* 75 MG PO SCH (08:41)
[2018-12-24] MEDS: Vitamin THERAPEUTIC TAB PO SCH (08:51)
[2018-12-24] MEDS: Lithium Carbonate TAB* 300 MG PO SCH ×2 (11:11→20:44)
--- NOTE | 2018-12-24 13:08 | PN ---
Subjective - Subjective Date of Service: 12/24/18 Service Type: 15570 Hosp care 25 min moderate complexity Subjective: patient presents as dysphoric, tearful during conversation. She reports feeling "sad" and "depressed." She states that being able to cry is an improvement from emotional numbing. She has difficulty identifying further thoughts or emotions. Patient reports frustration with room change and no longer being roommates with select peer. With prompting, patient identifies feeling like "we are being punished for being friends." Notified of treatment team suggestion of room change to promote boundary setting. Pt stated understanding. She is given CBT homework to complete over the weekend. Objective - General Observations Appearance: Well Groomed Stature: Overweight Posture: Slumped Eye Contact: Intermittent Behavior/Activity: Slowed - Interaction Observations Attitude Towards Examiner: Cooperative Stated Mood: Dysphoric Affect: Flat - tearful Speech Pattern/Tone: Delayed, Quiet Volume Thought Process: Coherent, Impoverished Perception: WNL Thought Content: Depressive, Self-Deprecatory Thought Process: Lethality: Passive Wish, Suicidal Planning Hallucination Type: Auditory Delusion Type: None - Cognitive Function Orientation: A&O x 4 Level of Consciousness: Alert Cognition: Impaired Attention/Concentration Estimated Intelligence: Normal Insight: WNL Judgment Within Normal Limits: No Ability to Make Reasonable Decisions: Serverely Impaired - Medication Compliance Cooperative with Inpatient Medication Regimen: Yes - Group Participation Participates in Group Activities: Yes Assessment - Assessment Merits Inpatient Hospitalization: For Immediate Safety, For Stabilization Inpatient DSM-V Dx: F25.0 Clinical Impression: 38yo wf, domiciled, single, never and recently unemployed with history of schizoaffective d/o, depressed type. She presented to ED self-referred due to SI and plan to OD on medications one week after discharge from [facility]. Patient reports worsening symptoms, including AH and command hallucinations. We have resumed outpatient medications, started titration of lithium, and are pending bed availability to [facility]. Patient merits hospitalization for safety and stabilization. Plan - Plan Treatment Plan: Name: SALLY DAVIS Birthdate: 1980 [id number] continue acute intensive psychiatric treatment. may decrease to q30min observation, allow staff pass and computer use. convert to 2PC status. pending bed availability to [facility] for longer term stabilization. increase lithium to 300mg BID. obtain lithium trough on 12/26/18. Continued Medication Management: Start Medication Medications: Current Medications Acetaminophen (Tylenol Tab*) 650 mg PO Q4H PRN PRN Reason: PAIN or TEMP > 101 F Al Hydrox/Mg Hydrox/Simethicone (Maalox Plus*) 30 ml PO Q4H PRN PRN Reason: INDIGESTION Last Admin: 12/15/18 16:31 Dose: 30 ml Bupropion HCl (Wellbutrin Xl *) 150 mg PO QAM [facility] Last Admin: 12/24/18 08:41 Dose: 150 mg Clonazepam (Klonopin Tab(*)) 0.5 mg PO BID PRN PRN Reason: ANXIETY Last Admin: 12/24/18 08:41 Dose: 0.5 mg [place] Carbonate ([place] Carbonate Tab*) 300 mg PO BID [facility] Last Admin: 12/24/18 11:11 Dose: 300 mg Multivitamins (Theragran Tab*) 1 tab PO DAILY [facility] Last Admin: 12/24/18 08:51 Dose: Not Given Paliperidone Palmitate (Invega Sustenna*) 156 mg IM Q28D [facility] Topiramate (Topamax(*)) 100 mg PO BID [facility] Last Admin: 12/24/18 08:41 Dose: 100 mg Venlafaxine HCl (Effexor Xr Cap*) 75 mg PO DAILY [facility] Last Admin: 12/24/18 08:41 Dose: 75 mg - Discharge Plan Discharge Plan: Consider Longer Term Tx
[2018-12-25] MEDS: Vitamin THERAPEUTIC TAB PO SCH (08:38)
[2018-12-25] MEDS: Lithium Carbonate TAB* 300 MG PO SCH ×2 (08:40→21:06)
[2018-12-25] MEDS: Topiramate TAB(*) 100 MG PO SCH ×2 (08:40→21:06)
[2018-12-25] MEDS: Venlafaxine EXT RELEASE CAP* 75 MG PO SCH (08:40)
[2018-12-25] MEDS: BuPROPion XL* 150 MG TAB.XL PO SCH (08:40)
[2018-12-25] MEDS: clonazePAM TAB(*) 0.5 MG PO PRN ×2 (08:40→21:05)
[2018-12-26] MEDS: Lithium Carbonate TAB* 300 MG PO SCH ×2 (08:22→20:21)
[2018-12-26] MEDS: clonazePAM TAB(*) 0.5 MG PO PRN ×2 (08:23→20:21)
[2018-12-26] MEDS: BuPROPion XL* 150 MG TAB.XL PO SCH (08:23)
[2018-12-26] MEDS: Venlafaxine EXT RELEASE CAP* 75 MG PO SCH (08:23)
[2018-12-26] MEDS: Topiramate TAB(*) 100 MG PO SCH ×2 (08:23→20:22)
[2018-12-26] MEDS: Vitamin THERAPEUTIC TAB PO SCH (08:25)
[2018-12-27] MEDS: clonazePAM TAB(*) 0.5 MG PO PRN ×2 (08:37→20:33)
[2018-12-27] MEDS: Venlafaxine EXT RELEASE CAP* 75 MG PO SCH (08:38)
[2018-12-27] MEDS: BuPROPion XL* 150 MG TAB.XL PO SCH (08:38)
[2018-12-27] MEDS: Topiramate TAB(*) 100 MG PO SCH ×2 (08:38→20:32)
[2018-12-27] MEDS: Lithium Carbonate TAB* 300 MG PO SCH (08:38)
[2018-12-27] MEDS: Vitamin THERAPEUTIC TAB PO SCH (08:56)
[2018-12-27] MEDS ORDERED: Paliperidone SUSTENNA* 156 MG/1 ML IM SCH (09:00)
--- NOTE | 2018-12-27 11:32 | PN ---
BSU: Group Therapy Note - Service Type Service Type: [id number] Group Psychotherapy - Cognitive Behavioral Group Therapy ( CBT):Patient was attentive and participatory in CBT programming this morning, and remained in good behavioral control. Patient expressed positive insights regarding relevant treatment interventions and goals.
--- NOTE | 2018-12-27 11:52 | PN ---
Subjective - Subjective Date of Service: 12/27/18 Service Type: 83849 Hosp care 25 min moderate complexity Subjective: Patient reports feeling "exhausted" and requests that lithium be dosed at bedtime. Notified of lithium level and recommendation to increase dose to 750mg , patient agrees. She received monthly Invega Sustenna JEONG of 156mg IM today. She reports using her thought record and noting a connection between "irritability" and feelings of rejection. Patient validated for her effort and encouraged to continue to identify thought/mood patterns. Objective - General Observations Appearance: Unkempt Stature: Overweight Posture: Slumped Eye Contact: Avoidant Behavior/Activity: Slowed - Interaction Observations Attitude Towards Examiner: Cooperative Stated Mood: Dysphoric Affect: Full Speech Pattern/Tone: Clear, Appropriate, Quiet Volume Thought Process: Impoverished Perception: WNL Thought Content: Depressive, Self-Deprecatory Thought Process: Lethality: Passive Wish, Suicidal Planning Hallucination Type: Auditory Delusion Type: None - Cognitive Function Orientation: A&O x 4 Level of Consciousness: Alert Cognition: Impaired Attention/Concentration Estimated Intelligence: Normal Insight: WNL Judgment Within Normal Limits: No Ability to Make Reasonable Decisions: Serverely Impaired - Medication Compliance Cooperative with Inpatient Medication Regimen: Yes - Group Participation Participates in Group Activities: Yes Assessment - Assessment Merits Inpatient Hospitalization: For Immediate Safety, For Stabilization, For Ongoing Evaluation, Consolidate Improvements Inpatient DSM-V Dx: F25.0 Clinical Impression: 38yo wf, domiciled, single, never and recently unemployed with history of schizoaffective d/o, depressed type. She presented to ED self-referred due to SI and plan to OD on medications one week after discharge from [facility]. Patient reports worsening symptoms, including AH and command hallucinations. We have resumed outpatient medications, started titration of lithium, and are pending bed availability to [facility]. Patient merits hospitalization for safety and stabilization. Plan - Plan Treatment Plan: Name: SALLY DAVIS Birthdate: 1980 [id number] continue acute intensive psychiatric treatment. may decrease to q30min observation, allow staff pass and computer use. convert to 2PC status. pending bed availability to [facility] for longer term stabilization. lithium trough on 12/26 of 0.34 change lithium to ER formulary: 750mg qhs Continued Medication Management: Start Medication Medications: Current Medications Acetaminophen (Tylenol Tab*) 650 mg PO Q4H PRN PRN Reason: PAIN or TEMP > 101 F Al Hydrox/Mg Hydrox/Simethicone (Maalox Plus*) 30 ml PO Q4H PRN PRN Reason: INDIGESTION Last Admin: 12/15/18 16:31 Dose: 30 ml Bupropion HCl (Wellbutrin Xl *) 150 mg PO QAM [facility] Last Admin: 12/27/18 08:38 Dose: 150 mg Clonazepam (Klonopin Tab(*)) 0.5 mg PO BID PRN PRN Reason: ANXIETY Last Admin: 12/27/18 08:37 Dose: 0.5 mg [place] Carbonate ([place] Carbonate Er (Nf)) 300 mg PO BEDTIME [facility]; Protocol [place] Carbonate ([place] Carbonate Er Tab*) 450 mg PO BEDTIME [facility] Multivitamins (Theragran Tab*) 1 tab PO DAILY [facility] Last Admin: 12/27/18 08:56 Dose: Not Given Paliperidone Palmitate (Invega Sustenna*) 156 mg IM Q28D [facility] Last Admin: 12/27/18 09:48 Dose: 156 mg Topiramate (Topamax(*)) 100 mg PO BID [facility] Last Admin: 12/27/18 08:38 Dose: 100 mg Venlafaxine HCl (Effexor Xr Cap*) 75 mg PO DAILY [facility] Last Admin: 12/27/18 08:38 Dose: 75 mg - Discharge Plan Discharge Plan: Consider Longer Term Tx
[2018-12-27] MEDS: Al Hydrox/Mg Hydrox/Simet LIQ* 30 ML UDC PO PRN (16:19)
[2018-12-27] MEDS: CMC:Lithium Carbonate ER (NF) 300 MG TAB.ER PO SCH (20:32)
[2018-12-27] MEDS: Lithium Carbonate ER* 450 MG TAB.ER PO SCH (20:32)
[2018-12-28] MEDS: BuPROPion XL* 150 MG TAB.XL PO SCH (08:59)
[2018-12-28] MEDS: Venlafaxine EXT RELEASE CAP* 75 MG PO SCH (08:59)
[2018-12-28] MEDS: Topiramate TAB(*) 100 MG PO SCH ×2 (08:59→20:59)
[2018-12-28] MEDS: clonazePAM TAB(*) 0.5 MG PO PRN ×2 (08:59→20:59)
[2018-12-28] MEDS: Vitamin THERAPEUTIC TAB PO SCH (09:00)
[2018-12-28] MEDS: Al Hydrox/Mg Hydrox/Simet LIQ* 30 ML UDC PO PRN (13:43)
[2018-12-28] MEDS: CMC:Lithium Carbonate ER (NF) 300 MG TAB.ER PO SCH (20:59)
[2018-12-28] MEDS: Lithium Carbonate ER* 450 MG TAB.ER PO SCH (20:59)
[2018-12-29] MEDS: clonazePAM TAB(*) 0.5 MG PO PRN (08:54)
[2018-12-29] MEDS: BuPROPion XL* 150 MG TAB.XL PO SCH (08:54)
[2018-12-29] MEDS: Vitamin THERAPEUTIC TAB PO SCH (08:55)
[2018-12-29] MEDS: Topiramate TAB(*) 100 MG PO SCH ×2 (08:55→21:59)
[2018-12-29] MEDS: Venlafaxine EXT RELEASE CAP* 75 MG PO SCH (08:55)
[2018-12-29] MEDS: Al Hydrox/Mg Hydrox/Simet LIQ* 30 ML UDC PO PRN (16:21)
[2018-12-29] MEDS: CMC:Lithium Carbonate ER (NF) 300 MG TAB.ER PO SCH (21:59)
[2018-12-29] MEDS: Lithium Carbonate ER* 450 MG TAB.ER PO SCH (21:59)
[2018-12-30] MEDS: Topiramate TAB(*) 100 MG PO SCH ×2 (08:38→22:24)
[2018-12-30] MEDS: clonazePAM TAB(*) 0.5 MG PO PRN (08:38)
[2018-12-30] MEDS: BuPROPion XL* 150 MG TAB.XL PO SCH (08:38)
[2018-12-30] MEDS: Venlafaxine EXT RELEASE CAP* 75 MG PO SCH (08:38)
[2018-12-30] MEDS: Vitamin THERAPEUTIC TAB PO SCH (08:38)
--- NOTE | 2018-12-30 11:21 | PN ---
Subjective - Subjective Date of Service: 12/30/18 Service Type: 02046 Hosp care 25 min moderate complexity Subjective: Patient reports "I'm very emotional today." She endorses anxiety without specific precipitant. With prompting, patient able to identify concerns. She endorses worry about her car in the parking lot, her step-father's business and weight gain. Patient reports plan to use thought log in regards to an interaction this morning. With prompting, patient is able to identify coping skills she utilized to quell distress. She is encouraged to continue to practice identifying thoughts and emotions. Objective - General Observations Appearance: Well Groomed Stature: Overweight Posture: Slumped Eye Contact: Average Behavior/Activity: Slowed - Interaction Observations Attitude Towards Examiner: Cooperative Stated Mood: Dysphoric Affect: Full Speech Pattern/Tone: Clear, Appropriate, Quiet Volume Thought Process: Impoverished Perception: WNL Thought Content: Depressive, Self-Deprecatory Thought Process: Lethality: Passive Wish Hallucination Type: None Delusion Type: None - Cognitive Function Orientation: A&O x 4 Level of Consciousness: Alert Cognition: Impaired Attention/Concentration Estimated Intelligence: Normal Insight: WNL Judgment Within Normal Limits: No Ability to Make Reasonable Decisions: Serverely Impaired - Medication Compliance Cooperative with Inpatient Medication Regimen: Yes - Group Participation Participates in Group Activities: Yes Assessment - Assessment Merits Inpatient Hospitalization: For Immediate Safety, For Stabilization, Consolidate Improvements Inpatient DSM-V Dx: F25.0 Clinical Impression: 38yo wf, domiciled, single, never and recently unemployed with history of schizoaffective d/o, depressed type. She presented to ED self-referred due to SI and plan to OD on medications one week after discharge from [facility]. Patient reports worsening symptoms, including AH and command hallucinations. We have resumed outpatient medications, started titration of lithium, and are pending bed availability to [facility]. Patient merits hospitalization for safety and stabilization. Plan - Plan Treatment Plan: Name: SALLY DAVIS Birthdate: 1980 [id number] continue acute intensive psychiatric treatment. may decrease to q30min observation, allow staff pass and computer use. convert to 2PC status. pending bed availability to [facility] for longer term stabilization. lithium trough on 12/26 of 0.34, continue lithium ER 750mg qhs and other medications as ordered. nutrition consult ordered per patient concern of weight gain. Medications: Current Medications Acetaminophen (Tylenol Tab*) 650 mg PO Q4H PRN PRN Reason: PAIN or TEMP > 101 F Al Hydrox/Mg Hydrox/Simethicone (Maalox Plus*) 30 ml PO Q4H PRN PRN Reason: INDIGESTION Last Admin: 12/29/18 16:21 Dose: 30 ml Bupropion HCl (Wellbutrin Xl *) 150 mg PO QAM [facility] Last Admin: 12/30/18 08:38 Dose: 150 mg Clonazepam (Klonopin Tab(*)) 0.5 mg PO BID PRN PRN Reason: ANXIETY Last Admin: 12/30/18 08:38 Dose: 0.5 mg [place] Carbonate ([place] Carbonate Er (Nf)) 300 mg PO BEDTIME [facility]; Protocol Last Admin: 12/29/18 21:59 Dose: 300 mg [place] Carbonate ([place] Carbonate Er Tab*) 450 mg PO BEDTIME [facility] Last Admin: 12/29/18 21:59 Dose: 450 mg Multivitamins (Theragran Tab*) 1 tab PO DAILY [facility] Last Admin: 12/30/18 08:38 Dose: 1 tab Paliperidone Palmitate (Invega Sustenna*) 156 mg IM Q28D [facility] Last Admin: 12/27/18 09:48 Dose: 156 mg Topiramate (Topamax(*)) 100 mg PO BID [facility] Last Admin: 12/30/18 08:38 Dose: 100 mg Venlafaxine HCl (Effexor Xr Cap*) 75 mg PO DAILY [facility] Last Admin: 12/30/18 08:38 Dose: 75 mg - Discharge Plan Discharge Plan: Consider Longer Term Tx
--- NOTE | 2018-12-30 16:14 | PN ---
BSU: Group Therapy Note - Service Type Service Type: 72338 Group Psychotherapy - Group Participation Patient Participating in Group: Yes Level of Group Participation: Attentive, Non-participatory Relatedness to Group: Well Related - Varsha was present in group and was attentive and responded appropriately to group conversation. She was a pleasant member of the group.
[2018-12-30] MEDS: Lithium Carbonate ER* 450 MG TAB.ER PO SCH (22:24)
[2018-12-30] MEDS: CMC:Lithium Carbonate ER (NF) 300 MG TAB.ER PO SCH (22:24)
[2018-12-31] MEDS: Vitamin THERAPEUTIC TAB PO SCH (08:27)
[2018-12-31] MEDS: clonazePAM TAB(*) 0.5 MG PO PRN (08:27)
[2018-12-31] MEDS: Venlafaxine EXT RELEASE CAP* 75 MG PO SCH (08:27)
[2018-12-31] MEDS: BuPROPion XL* 150 MG TAB.XL PO SCH (08:27)
[2018-12-31] MEDS: Topiramate TAB(*) 100 MG PO SCH ×2 (08:27→20:46)
--- NOTE | 2018-12-31 12:04 | PN ---
BSU: Group Therapy Note - Service Type Service Type: 05610 Group Psychotherapy - Cognitive Behavioral Group Therapy ( CBT):Patient was attentive and participatory in CBT programming this morning, and remained in good behavioral control. Patient expressed positive insights regarding relevant treatment interventions and goals.
--- NOTE | 2018-12-31 16:14 | PN ---
Subjective - Subjective Date of Service: 12/31/18 Service Type: 83139 Hosp care 35 min high complexity Subjective: Met with Varsha with Monique Guevara LCSW, to discuss delay in departure for [facility] until at the earliest. Varsha handled the news well, but had been working on journalling and had focused on negative subject matter. She also briefly discussed her relationship with Felisha, her friend who had been here for some time. Varsha was positively responsive to encouragement and suggestions. Objective - General Observations Appearance: Disheveled Appears Stated Age: Yes Stature: Overweight Posture: WNL Eye Contact: Average Behavior/Activity: Slowed - Interaction Observations Attitude Towards Examiner: Cooperative, Anxious Stated Mood: Dysphoric Affect: Restricted Speech Pattern/Tone: Clear, Quiet Volume Thought Process: Coherent Perception: WNL Thought Content: Preoccupation/Ruminations Hallucination Type: None Delusion Type: None - Cognitive Function Orientation: A&O x 4 Level of Consciousness: Awake, Alert, Appropriate Cognition: WNL Estimated Intelligence: Normal Insight: WNL Judgment Within Normal Limits: No Ability to Make Reasonable Decisions: Moderately Impaired - Medication Compliance Cooperative with Inpatient Medication Regimen: Yes - Group Participation Participates in Group Activities: Partial Assessment - Assessment Merits Inpatient Hospitalization: For Immediate Safety Inpatient DSM-V Dx: F25.0 Clinical Impression: 38yo wf, domiciled, single, never and recently unemployed with history of schizoaffective d/o, depressed type. She presented to ED self-referred due to SI and plan to OD on medications one week after discharge from [facility]. Patient reports worsening symptoms, including AH and command hallucinations. We have resumed outpatient medications, started titration of lithium, and are pending bed availability to [facility]. Patient merits hospitalization for safety and stabilization. Plan - Plan Treatment Plan: Name: SALLY DAVIS Birthdate: 1980 [id number] continue acute intensive psychiatric treatment. may decrease to q30min observation, allow staff pass and computer use. convert to 2PC status. pending bed availability to [facility] for longer term stabilization. lithium trough on 12/26 of 0.34, continue lithium ER 750mg qhs and other medications as ordered. nutrition consult ordered per patient concern of weight gain. 12/31/18 Varsha complained of exhaustion in the early evening. Diet Pepsi was suggested as a possibly experiment. Journalling was encouraged. Continued Medication Management: Different Medication Medications: Current Medications Acetaminophen (Tylenol Tab*) 650 mg PO Q4H PRN PRN Reason: PAIN or TEMP > 101 F Al Hydrox/Mg Hydrox/Simethicone (Maalox Plus*) 30 ml PO Q4H PRN PRN Reason: INDIGESTION Last Admin: 12/29/18 16:21 Dose: 30 ml Bupropion HCl (Wellbutrin Xl *) 150 mg PO QAM [facility] Last Admin: 12/31/18 08:27 Dose: 150 mg Clonazepam (Klonopin Tab(*)) 0.5 mg PO BID PRN PRN Reason: ANXIETY Last Admin: 12/31/18 08:27 Dose: 0.5 mg [place] Carbonate ([place] Carbonate Er (Nf)) 300 mg PO BEDTIME [facility]; Protocol Last Admin: 12/30/18 22:24 Dose: 300 mg [place] Carbonate ([place] Carbonate Er Tab*) 450 mg PO BEDTIME [facility] Last Admin: 12/30/18 22:24 Dose: 450 mg Multivitamins (Theragran Tab*) 1 tab PO DAILY [facility] Last Admin: 12/31/18 08:27 Dose: 1 tab Paliperidone Palmitate (Invega Sustenna*) 156 mg IM Q28D [facility] Last Admin: 12/27/18 09:48 Dose: 156 mg Topiramate (Topamax(*)) 100 mg PO BID [facility] Last Admin: 12/31/18 08:27 Dose: 100 mg Venlafaxine HCl (Effexor Xr Cap*) 75 mg PO DAILY [facility] Last Admin: 12/31/18 08:27 Dose: 75 mg
[2018-12-31] MEDS: CMC:Lithium Carbonate ER (NF) 300 MG TAB.ER PO SCH (20:47)
[2018-12-31] MEDS: Lithium Carbonate ER* 450 MG TAB.ER PO SCH (20:47)
[2019-01-01] MEDS: Vitamin THERAPEUTIC TAB PO SCH (08:20)
[2019-01-01] MEDS: BuPROPion XL* 150 MG TAB.XL PO SCH (08:20)
[2019-01-01] MEDS: Venlafaxine EXT RELEASE CAP* 75 MG PO SCH (08:20)
[2019-01-01] MEDS: clonazePAM TAB(*) 0.5 MG PO PRN ×2 (08:20→21:23)
[2019-01-01] MEDS: Topiramate TAB(*) 100 MG PO SCH ×2 (08:20→21:21)
[2019-01-01] MEDS: CMC:Lithium Carbonate ER (NF) 300 MG TAB.ER PO SCH (21:20)
[2019-01-01] MEDS: Lithium Carbonate ER* 450 MG TAB.ER PO SCH (21:20)
[2019-01-02] MEDS: BuPROPion XL* 150 MG TAB.XL PO SCH (08:22)
[2019-01-02] MEDS: clonazePAM TAB(*) 0.5 MG PO PRN (08:22)
[2019-01-02] MEDS: Vitamin THERAPEUTIC TAB PO SCH (08:22)
[2019-01-02] MEDS: Topiramate TAB(*) 100 MG PO SCH ×2 (08:22→20:54)
[2019-01-02] MEDS: Venlafaxine EXT RELEASE CAP* 75 MG PO SCH (08:23)
[2019-01-02] MEDS: CMC:Lithium Carbonate ER (NF) 300 MG TAB.ER PO SCH (20:54)
[2019-01-02] MEDS: Lithium Carbonate ER* 450 MG TAB.ER PO SCH (20:54)
[2019-01-03] MEDS: Venlafaxine EXT RELEASE CAP* 75 MG PO SCH (08:38)
[2019-01-03] MEDS: Vitamin THERAPEUTIC TAB PO SCH (08:38)
[2019-01-03] MEDS: Topiramate TAB(*) 100 MG PO SCH ×2 (08:38→21:18)
[2019-01-03] MEDS: BuPROPion XL* 150 MG TAB.XL PO SCH (08:38)
[2019-01-03] MEDS: clonazePAM TAB(*) 0.5 MG PO PRN (11:06)
--- NOTE | 2019-01-03 15:38 | PN ---
Subjective - Subjective Date of Service: 01/03/19 Service Type: 40312 Hosp care 15 min low complexity Subjective: Varsha states she is sleeping less, which is an improvement over the hypersomnolence she was experiencing. She has declined to go on staff pass recently, stating that nadia, warm weather makes her depressed. She was encouraged to go anyway. Objective - General Observations Appearance: Disheveled Appears Stated Age: Yes Stature: Overweight Posture: WNL Eye Contact: Average Behavior/Activity: Slowed - Interaction Observations Attitude Towards Examiner: Cooperative Stated Mood: Dysphoric, Irritable Speech Pattern/Tone: Clear Thought Process: Coherent Perception: WNL Thought Content: WNL, Preoccupation/Ruminations Delusion Type: None - Cognitive Function Orientation: A&O x 4 Level of Consciousness: Awake, Alert, Appropriate Cognition: WNL Estimated Intelligence: Normal Insight: WNL Judgment Within Normal Limits: No Ability to Make Reasonable Decisions: Moderately Impaired - Medication Compliance Cooperative with Inpatient Medication Regimen: Yes - Group Participation Participates in Group Activities: Partial Assessment - Assessment Merits Inpatient Hospitalization: For Immediate Safety Inpatient DSM-V Dx: F25.0 Clinical Impression: 38yo wf, domiciled, single, never and recently unemployed with history of schizoaffective d/o, depressed type. She presented to ED self-referred due to SI and plan to OD on medications one week after discharge from [facility]. Patient reports worsening symptoms, including AH and command hallucinations. We have resumed outpatient medications, started titration of lithium, and are pending bed availability to [facility]. Patient merits hospitalization for safety and stabilization. Plan - Plan Treatment Plan: Name: SALLY DAVIS Birthdate: 1980 [id number] continue acute intensive psychiatric treatment. may decrease to q30min observation, allow staff pass and computer use. convert to 2PC status. pending bed availability to [facility] for longer term stabilization. lithium trough on 12/26 of 0.34, continue lithium ER 750mg qhs and other medications as ordered. nutrition consult ordered per patient concern of weight gain. 12/31/18 Varsha complained of exhaustion in the early evening. Diet Pepsi was suggested as a possibly experiment. Journalling was encouraged. 01/03/19 Varsha is encouraged to add activity, such as staff pass, to allow her body to become more tired. Continued Medication Management: Different Medication Medications: Current Medications Acetaminophen (Tylenol Tab*) 650 mg PO Q4H PRN PRN Reason: PAIN or TEMP > 101 F Al Hydrox/Mg Hydrox/Simethicone (Maalox Plus*) 30 ml PO Q4H PRN PRN Reason: INDIGESTION Last Admin: 12/29/18 16:21 Dose: 30 ml Bupropion HCl (Wellbutrin Xl *) 150 mg PO QAM [facility] Last Admin: 01/03/19 08:38 Dose: 150 mg Clonazepam (Klonopin Tab(*)) 0.5 mg PO BID PRN PRN Reason: ANXIETY Last Admin: 01/03/19 11:06 Dose: 0.5 mg [place] Carbonate ([place] Carbonate Er (Nf)) 300 mg PO BEDTIME [facility]; Protocol Last Admin: 01/02/19 20:54 Dose: 300 mg [place] Carbonate ([place] Carbonate Er Tab*) 450 mg PO BEDTIME [facility] Last Admin: 01/02/19 20:54 Dose: 450 mg Multivitamins (Theragran Tab*) 1 tab PO DAILY [facility] Last Admin: 01/03/19 08:38 Dose: 1 tab Paliperidone Palmitate (Invega Sustenna*) 156 mg IM Q28D [facility] Last Admin: 12/27/18 09:48 Dose: 156 mg Topiramate (Topamax(*)) 100 mg PO BID [facility] Last Admin: 01/03/19 08:38 Dose: 100 mg Venlafaxine HCl (Effexor Xr Cap*) 75 mg PO DAILY [facility] Last Admin: 01/03/19 08:38 Dose: 75 mg - Discharge Plan Discharge Plan: Consider Longer Term Tx
[2019-01-03] MEDS: Lithium Carbonate ER* 450 MG TAB.ER PO SCH (21:17)
[2019-01-03] MEDS: CMC:Lithium Carbonate ER (NF) 300 MG TAB.ER PO SCH (21:18)
[2019-01-04] MEDS: Venlafaxine EXT RELEASE CAP* 75 MG PO SCH (08:30)
[2019-01-04] MEDS: BuPROPion XL* 150 MG TAB.XL PO SCH (08:30)
[2019-01-04] MEDS: clonazePAM TAB(*) 0.5 MG PO PRN (08:30)
[2019-01-04] MEDS: Vitamin THERAPEUTIC TAB PO SCH (08:31)
[2019-01-04] MEDS: Topiramate TAB(*) 100 MG PO SCH ×2 (08:31→21:44)
[2019-01-04] MEDS: Lithium Carbonate ER* 450 MG TAB.ER PO SCH (21:44)
[2019-01-04] MEDS: CMC:Lithium Carbonate ER (NF) 300 MG TAB.ER PO SCH (21:44)
[2019-01-05] MEDS: Vitamin THERAPEUTIC TAB PO SCH (08:46)
[2019-01-05] MEDS: BuPROPion XL* 150 MG TAB.XL PO SCH (08:46)
[2019-01-05] MEDS: clonazePAM TAB(*) 0.5 MG PO PRN (08:46)
[2019-01-05] MEDS: Venlafaxine EXT RELEASE CAP* 75 MG PO SCH (08:46)
[2019-01-05] MEDS: Topiramate TAB(*) 100 MG PO SCH ×2 (08:46→20:47)
--- NOTE | 2019-01-05 09:00 | PN ---
Subjective - Subjective Date of Service: 01/05/19 Service Type: 12246 Hosp care 15 min low complexity Subjective: Patient reports much improvement in energy and attributes this to addition of caffeine. She has met with [employer] and they are working on healthy eating habits. Patient reports consistent anxious and intrusive thoughts wherein she ruminates about "what if" scenarios. She states she feels like she is dissociating then seems to "snap out of it." Encouraged to utilize grounding and self-soothe techniques such as body scan and progressive muscle relaxation. She is reminded to use thought record to delineate thoughts and emotions. Patient reports attending staff pass, as recommended. Objective - General Observations Appearance: Well Groomed Stature: Overweight Posture: WNL Eye Contact: Average Behavior/Activity: WNL - Interaction Observations Attitude Towards Examiner: Cooperative Stated Mood: Dysphoric Affect: Blunted Speech Pattern/Tone: Clear, Quiet Volume Thought Process: Coherent, Circumstantial Perception: Depersonalization Thought Content: Preoccupation/Ruminations, Depressive Thought Process: Lethality: Passive Wish, Suicidal Planning Hallucination Type: Denies Delusion Type: Denies - Cognitive Function Orientation: A&O x 4 Level of Consciousness: Alert Cognition: Impaired Attention/Concentration Estimated Intelligence: Normal Insight: WNL Judgment Within Normal Limits: No Ability to Make Reasonable Decisions: Serverely Impaired - Medication Compliance Cooperative with Inpatient Medication Regimen: Yes - Group Participation Participates in Group Activities: Yes Assessment - Assessment Merits Inpatient Hospitalization: For Immediate Safety, For Stabilization Inpatient DSM-V Dx: F25.0 Clinical Impression: 38yo wf, domiciled, single, never and recently unemployed with history of schizoaffective d/o, depressed type. She presented to ED self-referred due to SI and plan to OD on medications one week after discharge from [facility]. Patient reports worsening symptoms, including AH and command hallucinations. We have resumed outpatient medications, started titration of lithium, and are pending bed availability to [facility]. Patient merits hospitalization for safety and stabilization. Plan - Plan Treatment Plan: Name: SALLY DAVIS Birthdate: 1980 [id number] continue acute intensive psychiatric treatment. may decrease to q30min observation, allow staff pass and computer use. convert to 2PC status. pending bed availability to [facility] for longer term stabilization. lithium trough on 12/26 of 0.34, continue lithium ER 750mg qhs and other medications as ordered. Medications: Current Medications Acetaminophen (Tylenol Tab*) 650 mg PO Q4H PRN PRN Reason: PAIN or TEMP > 101 F Al Hydrox/Mg Hydrox/Simethicone (Maalox Plus*) 30 ml PO Q4H PRN PRN Reason: INDIGESTION Last Admin: 12/29/18 16:21 Dose: 30 ml Bupropion HCl (Wellbutrin Xl *) 150 mg PO QAM [facility] Last Admin: 01/05/19 08:46 Dose: 150 mg Clonazepam (Klonopin Tab(*)) 0.5 mg PO BID PRN PRN Reason: ANXIETY Last Admin: 01/05/19 08:46 Dose: 0.5 mg [place] Carbonate ([place] Carbonate Er (Nf)) 300 mg PO BEDTIME [facility]; Protocol Last Admin: 01/04/19 21:44 Dose: 300 mg [place] Carbonate ([place] Carbonate Er Tab*) 450 mg PO BEDTIME [facility] Last Admin: 01/04/19 21:44 Dose: 450 mg Multivitamins (Theragran Tab*) 1 tab PO DAILY [facility] Last Admin: 01/05/19 08:46 Dose: 1 tab Paliperidone Palmitate (Invega Sustenna*) 156 mg IM Q28D [facility] Last Admin: 12/27/18 09:48 Dose: 156 mg Topiramate (Topamax(*)) 100 mg PO BID [facility] Last Admin: 01/05/19 08:46 Dose: 100 mg Venlafaxine HCl (Effexor Xr Cap*) 75 mg PO DAILY [facility] Last Admin: 01/05/19 08:46 Dose: 75 mg - Discharge Plan Discharge Plan: Consider Longer Term Tx
--- NOTE | 2019-01-05 15:34 | PN ---
BSU: Group Therapy Note - Service Type Service Type: [id number] Group Psychotherapy - Medication Education Group: Patient was attentive and participatory in group, and remained in good behavioral control. Patient expressed positive insights regarding relevant treatment interventions. Patient stated understanding of material discussed and had appropriate questions.
[2019-01-05] MEDS: Lithium Carbonate ER* 450 MG TAB.ER PO SCH (20:47)
[2019-01-05] MEDS: CMC:Lithium Carbonate ER (NF) 300 MG TAB.ER PO SCH (20:47)
[2019-01-06] MEDS: BuPROPion XL* 150 MG TAB.XL PO SCH (09:35)
[2019-01-06] MEDS: Venlafaxine EXT RELEASE CAP* 75 MG PO SCH (09:35)
[2019-01-06] MEDS: Topiramate TAB(*) 100 MG PO SCH ×2 (09:35→21:43)
[2019-01-06] MEDS: Vitamin THERAPEUTIC TAB PO SCH (09:35)
[2019-01-06] MEDS: clonazePAM TAB(*) 0.5 MG PO PRN ×2 (09:36→21:41)
[2019-01-06] MEDS: Al Hydrox/Mg Hydrox/Simet LIQ* 30 ML UDC PO PRN (15:16)
[2019-01-06] MEDS: Lithium Carbonate ER* 450 MG TAB.ER PO SCH (21:41)
[2019-01-06] MEDS: CMC:Lithium Carbonate ER (NF) 300 MG TAB.ER PO SCH (21:44)
[2019-01-07] MEDS: Topiramate TAB(*) 100 MG PO SCH ×2 (08:40→21:52)
[2019-01-07] MEDS: Venlafaxine EXT RELEASE CAP* 75 MG PO SCH (08:41)
[2019-01-07] MEDS: Vitamin THERAPEUTIC TAB PO SCH (08:41)
[2019-01-07] MEDS: BuPROPion XL* 150 MG TAB.XL PO SCH (08:41)
[2019-01-07] MEDS: clonazePAM TAB(*) 0.5 MG PO PRN (08:41)
--- NOTE | 2019-01-07 10:28 | PN ---
Subjective - Subjective Date of Service: 01/07/19 Service Type: 13921 Hosp care 15 min low complexity Subjective: Patient reports that she enjoyed visiting with her grandfather and aunt during visiting hours today. Patient reports feeling "sad" and worries that she will not be safe if returns home. She states understanding of and agrees to remain on wait list for state hospitalization. Patient given assignment to make 3 entries per day into thought log. Objective - General Observations Appearance: Well Groomed Stature: Overweight Posture: Slumped Eye Contact: Average Behavior/Activity: Slowed - Interaction Observations Attitude Towards Examiner: Cooperative, Anxious Stated Mood: Dysphoric Affect: Blunted Speech Pattern/Tone: Clear, Quiet Volume Thought Process: Circumstantial, Impoverished Perception: WNL Thought Content: Preoccupation/Ruminations, Depressive, Self-Deprecatory Thought Process: Lethality: Passive Wish Hallucination Type: Denies Delusion Type: Denies - Cognitive Function Orientation: A&O x 4 Level of Consciousness: Alert Cognition: Impaired Attention/Concentration Estimated Intelligence: Normal Insight: WNL Judgment Within Normal Limits: No Ability to Make Reasonable Decisions: Serverely Impaired - Medication Compliance Cooperative with Inpatient Medication Regimen: Yes - Group Participation Participates in Group Activities: Partial Assessment - Assessment Merits Inpatient Hospitalization: For Immediate Safety, For Stabilization Inpatient DSM-V Dx: F25.0 Clinical Impression: 38yo wf, domiciled, single, never and recently unemployed with history of schizoaffective d/o, depressed type. She presented to ED self-referred due to SI and plan to OD on medications one week after discharge from [facility]. Patient reports worsening symptoms, including AH and command hallucinations. We have resumed outpatient medications, started titration of lithium, and are pending bed availability to [facility]. Patient merits hospitalization for safety and stabilization. Plan - Plan Treatment Plan: Name: SALLY DAVIS Birthdate: 1980 [id number] continue acute intensive psychiatric treatment. may decrease to q30min observation, allow staff pass and computer use. convert to 2PC status. pending bed availability to [facility] for longer term stabilization. lithium trough on 12/26 of 0.34, continue lithium ER 750mg qhs and other medications as ordered. Medications: Current Medications Acetaminophen (Tylenol Tab*) 650 mg PO Q4H PRN PRN Reason: PAIN or TEMP > 101 F Al Hydrox/Mg Hydrox/Simethicone (Maalox Plus*) 30 ml PO Q4H PRN PRN Reason: INDIGESTION Last Admin: 01/06/19 15:16 Dose: 30 ml Bupropion HCl (Wellbutrin Xl *) 150 mg PO QAM MIGUEL Last Admin: 01/07/19 08:41 Dose: 150 mg Clonazepam (Klonopin Tab(*)) 0.5 mg PO BID PRN PRN Reason: ANXIETY Last Admin: 01/07/19 08:41 Dose: 0.5 mg [place] Carbonate ([place] Carbonate Er (Nf)) 300 mg PO BEDTIME MIGUEL; Protocol Last Admin: 01/06/19 21:44 Dose: 300 mg [place] Carbonate ([place] Carbonate Er Tab*) 450 mg PO BEDTIME [facility] Last Admin: 01/06/19 21:41 Dose: 450 mg Multivitamins (Theragran Tab*) 1 tab PO DAILY [facility] Last Admin: 01/07/19 08:41 Dose: 1 tab Paliperidone Palmitate (Invega Sustenna*) 156 mg IM Q28D [facility] Last Admin: 12/27/18 09:48 Dose: 156 mg Topiramate (Topamax(*)) 100 mg PO BID [facility] Last Admin: 01/07/19 08:40 Dose: 100 mg Venlafaxine HCl (Effexor Xr Cap*) 75 mg PO DAILY [facility] Last Admin: 01/07/19 08:41 Dose: 75 mg - Discharge Plan Discharge Plan: Consider Longer Term Tx
[2019-01-07] MEDS: Lithium Carbonate ER* 450 MG TAB.ER PO SCH (21:51)
[2019-01-07] MEDS: CMC:Lithium Carbonate ER (NF) 300 MG TAB.ER PO SCH (21:52)
[2019-01-08] MEDS: clonazePAM TAB(*) 0.5 MG PO PRN (08:45)
[2019-01-08] MEDS: Topiramate TAB(*) 100 MG PO SCH ×2 (08:45→21:33)
[2019-01-08] MEDS: BuPROPion XL* 150 MG TAB.XL PO SCH (08:45)
[2019-01-08] MEDS: Vitamin THERAPEUTIC TAB PO SCH (08:45)
[2019-01-08] MEDS: Venlafaxine EXT RELEASE CAP* 75 MG PO SCH (08:46)
[2019-01-08] MEDS: Lithium Carbonate ER* 450 MG TAB.ER PO SCH (21:32)
[2019-01-08] MEDS: CMC:Lithium Carbonate ER (NF) 300 MG TAB.ER PO SCH (21:33)
[2019-01-09] MEDS: clonazePAM TAB(*) 0.5 MG PO PRN (08:50)
[2019-01-09] MEDS: Vitamin THERAPEUTIC TAB PO SCH (08:50)
[2019-01-09] MEDS: BuPROPion XL* 150 MG TAB.XL PO SCH (08:50)
[2019-01-09] MEDS: Venlafaxine EXT RELEASE CAP* 75 MG PO SCH (08:51)
[2019-01-09] MEDS: Topiramate TAB(*) 100 MG PO SCH ×2 (08:51→20:26)
[2019-01-09] MEDS: Lithium Carbonate ER* 450 MG TAB.ER PO SCH (20:26)
[2019-01-09] MEDS: CMC:Lithium Carbonate ER (NF) 300 MG TAB.ER PO SCH (20:26)
[2019-01-10] MEDS: clonazePAM TAB(*) 0.5 MG PO PRN ×2 (08:30→21:53)
[2019-01-10] MEDS: BuPROPion XL* 150 MG TAB.XL PO SCH (08:31)
[2019-01-10] MEDS: Venlafaxine EXT RELEASE CAP* 75 MG PO SCH (08:31)
[2019-01-10] MEDS: Vitamin THERAPEUTIC TAB PO SCH (08:31)
[2019-01-10] MEDS: Topiramate TAB(*) 100 MG PO SCH ×2 (08:31→21:51)
--- NOTE | 2019-01-10 13:52 | PN ---
BSU: Group Therapy Note - Service Type Service Type: 96224 Group Psychotherapy - Cognitive Behavioral Group Therapy ( CBT):Patient attended CBT programming this morning and presented with flat affect that did not vary with discussion. Although responsive to direct prompts to respond to questions, patient did not engage in spontaneous conversation.
--- NOTE | 2019-01-10 15:28 | PN ---
Subjective - Subjective Date of Service: 01/10/19 Service Type: 19599 Hosp care 25 min moderate complexity Subjective: Patient notified of bed date for [facility] tomorrow, 01/11. She agrees to obtain lithium trough this evening. We review CBT homework and discuss cognitive distortions. Patient identifies feelings of irritability and annoyed with others. Encouraged to continue to practice identifying deprecating thoughts and emotions and given a more in- depth thought/mood record. Per staff, patient disclosed plan to hang self in regards to suicidal ideations. Objective - General Observations Appearance: Well Groomed Stature: Overweight Posture: Slumped Eye Contact: Average Behavior/Activity: Slowed - Interaction Observations Attitude Towards Examiner: Cooperative Stated Mood: Dysphoric Affect: Flat Speech Pattern/Tone: Clear, Quiet Volume Thought Process: Impoverished Thought Content: Preoccupation/Ruminations, Depressive Thought Process: Lethality: Passive Wish, Suicidal Planning Hallucination Type: Denies Delusion Type: Denies - Cognitive Function Orientation: A&O x 4 Level of Consciousness: Alert Cognition: Impaired Attention/Concentration Estimated Intelligence: Normal Insight: WNL Judgment Within Normal Limits: No Ability to Make Reasonable Decisions: Serverely Impaired - Medication Compliance Cooperative with Inpatient Medication Regimen: Yes - Group Participation Participates in Group Activities: Yes Assessment - Assessment Merits Inpatient Hospitalization: For Immediate Safety, For Stabilization Inpatient DSM-V Dx: F25.0 Clinical Impression: 38yo wf, domiciled, single, never and recently unemployed with history of schizoaffective d/o, depressed type. She presented to ED self-referred due to SI and plan to OD on medications one week after discharge from [facility]. Patient reports worsening symptoms, including AH and command hallucinations. We have resumed outpatient medications, started titration of lithium, and are pending bed availability to [facility]. Patient merits hospitalization for safety and stabilization. Plan - Plan Treatment Plan: Name: SALLY DAVIS Birthdate: 1980 [id number] continue acute intensive psychiatric treatment. may decrease to q30min observation, allow staff pass and computer use. convert to 2PC status. pending bed availability to [facility] for longer term stabilization- bed date of 01/11/19. obtain lithium trough on shauna of 01/10/19. Medications: Current Medications Acetaminophen (Tylenol Tab*) 650 mg PO Q4H PRN PRN Reason: PAIN or TEMP > 101 F Al Hydrox/Mg Hydrox/Simethicone (Maalox Plus*) 30 ml PO Q4H PRN PRN Reason: INDIGESTION Last Admin: 01/06/19 15:16 Dose: 30 ml Bupropion HCl (Wellbutrin Xl *) 150 mg PO QAM MIGUEL Last Admin: 01/10/19 08:31 Dose: 150 mg Clonazepam (Klonopin Tab(*)) 0.5 mg PO BID PRN PRN Reason: ANXIETY Last Admin: 01/10/19 08:30 Dose: 0.5 mg [place] Carbonate ([place] Carbonate Er (Nf)) 300 mg PO BEDTIME MIGUEL; Protocol Last Admin: 01/09/19 20:26 Dose: 300 mg [place] Carbonate ([place] Carbonate Er Tab*) 450 mg PO BEDTIME MIGUEL Last Admin: 01/09/19 20:26 Dose: 450 mg Multivitamins (Theragran Tab*) 1 tab PO DAILY [facility] Last Admin: 01/10/19 08:31 Dose: 1 tab Paliperidone Palmitate (Invega Sustenna*) 156 mg IM Q28D [facility] Last Admin: 12/27/18 09:48 Dose: 156 mg Topiramate (Topamax(*)) 100 mg PO BID [facility] Last Admin: 01/10/19 08:31 Dose: 100 mg Venlafaxine HCl (Effexor Xr Cap*) 75 mg PO DAILY [facility] Last Admin: 01/10/19 08:31 Dose: 75 mg - Discharge Plan Discharge Plan: Consider Longer Term Tx
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
[2019-01-10] MEDS: CMC:Lithium Carbonate ER (NF) 300 MG TAB.ER PO SCH (21:51)
[2019-01-10] MEDS: Lithium Carbonate ER* 450 MG TAB.ER PO SCH (21:51)
[2019-01-11 08:08] VITALS: BP 122/72
[2019-01-11] MEDS: Venlafaxine EXT RELEASE CAP* 75 MG PO SCH (08:24)
[2019-01-11] MEDS: Topiramate TAB(*) 100 MG PO SCH (08:24)
[2019-01-11] MEDS: BuPROPion XL* 150 MG TAB.XL PO SCH (08:24)
[2019-01-11] MEDS: clonazePAM TAB(*) 0.5 MG PO PRN (08:24)
[2019-01-11] MEDS: Vitamin THERAPEUTIC TAB PO SCH (08:24)
--- NOTE | 2019-01-11 10:13 | DCNOTE ---
Subjective - Subjective Service Types: 70333 Hosp DC Day Mgmt simple under 30 min Discharge Date: 01/11/19 Subjective: Patient agreeable to transfer to [facility]. Phone report given to Dr Peter. Objective - General Observations Appearance: Well Groomed Stature: Overweight Posture: Slumped Eye Contact: Average Behavior/Activity: Slowed - Interaction Observations Attitude Towards Examiner: Anxious Stated Mood: Dysphoric Affect: Flat Speech Pattern/Tone: Quiet Volume Thought Process: Impoverished Perception: WNL Thought Content: Preoccupation/Ruminations, Depressive, Self-Deprecatory Thought Process: Lethality: Suicidal Planning Hallucination Type: Denies Delusion Type: Denies - Cognitive Function Orientation: A&O x 4 Level of Consciousness: Alert Cognition: Impaired Attention/Concentration Estimated Intelligence: Normal Insight: WNL Judgment Within Normal Limits: No Ability to Make Reasonable Decisions: Serverely Impaired - Medication Compliance Cooperative with Inpatient Medication Regimen: Yes - Group Participation Participates in Group Activities: Yes DC Assessment - Assessment Clinical Impression: 38yo wf, domiciled, single, never and recently unemployed with history of schizoaffective d/o, depressed type. She presented to ED self-referred due to SI and plan to OD on medications one week after discharge from [facility]. Patient reports worsening symptoms, including AH and command hallucinations. We have resumed outpatient medications, started titration of lithium, and patient has been moderately engaging in unit programming. Patient is being discharged to [facility] for state hospitalization. Merits Inpatient Hospitalization: Yes Inpatient DSM-V Dx: F25.0 Discharge Planning - Discharge Planning Discharge Plan: Consider Longer Term Tx Recommendations for Continuing Care: Medication Management, Psychotherapy, Routine Metabolic Monitoring, Therapeutic Drug Levels Medications: Current Medications Acetaminophen (Tylenol Tab*) 650 mg PO Q4H PRN PRN Reason: PAIN or TEMP > 101 F Al Hydrox/Mg Hydrox/Simethicone (Maalox Plus*) 30 ml PO Q4H PRN PRN Reason: INDIGESTION Last Admin: 01/06/19 15:16 Dose: 30 ml Bupropion HCl (Wellbutrin Xl *) 150 mg PO QAM MIGUEL Last Admin: 01/11/19 08:24 Dose: 150 mg Clonazepam (Klonopin Tab(*)) 0.5 mg PO BID PRN PRN Reason: ANXIETY Last Admin: 01/11/19 08:24 Dose: 0.5 mg [place] Carbonate ([place] Carbonate Er (Nf)) 300 mg PO BEDTIME [facility]; Protocol Last Admin: 01/10/19 21:51 Dose: 300 mg [place] Carbonate ([place] Carbonate Er Tab*) 450 mg PO BEDTIME [facility] Last Admin: 01/10/19 21:51 Dose: 450 mg Multivitamins (Theragran Tab*) 1 tab PO DAILY [facility] Last Admin: 01/11/19 08:24 Dose: 1 tab Paliperidone Palmitate (Invega Sustenna*) 156 mg IM Q28D [facility] Last Admin: 12/27/18 09:48 Dose: 156 mg Topiramate (Topamax(*)) 100 mg PO BID [facility] Last Admin: 01/11/19 08:24 Dose: 100 mg Venlafaxine HCl (Effexor Xr Cap*) 75 mg PO DAILY [facility] Last Admin: 01/11/19 08:24 Dose: 75 mg Discharge Planning: Prescriptions provided for discharge [] Yes [x] No Follow up care details as per social work arrangements: Patient transferred to [facility] for longer term hospitalization. Patient response to discharge plan: [] eager for discharge [x] agreeable with discharge plan [] ambivalent about discharge [] disagrees with discharge today
--- NOTE | 2019-01-11 20:27 | DS ---
CC: [facility]; [facility].* DISCHARGE SUMMARY: DATE OF ADMISSION: 12/07/18 DATE OF DISCHARGE: 01/11/19 SUPERVISING PSYCHIATRIST: Dr. Nehemias Green.* (DICTATED BY HOMAR MALHOTRA NP) DIAGNOSES: 1. Schizoaffective disorder, depressed type. 2. Autism spectrum disorder. CONDITION AT THE TIME OF DISCHARGE: Guarded. The patient is agreeable to transfer to [facility] for psychiatric hospitalization. She continues to endorse depressed mood, suicidal ideation and recently disclosed plans to hang herself. She obtained lithium trough level last night, was 0.36 on lithium 750 ER q.h.s. The patient has been moderately engaged in unit programming and has been medication compliant. Report was given to Dr. Leny Peter. The patient transferred to [facility] via [facility]. MENTAL STATUS EXAM: Varsha is a 38-year-old white female, adequately groomed, casually dressed in her own clothing. She is dysphoric with flat affect, alert and oriented x3. Concentration is poor. Memory 3/3. Mood dysphoric. Speech is soft. Thought process is circumstantial and impoverished. Thought content is positive for suicidal ideation. She denies active auditory hallucinations. She denies visual hallucinations. She denies HI or . Her insight and judgment are poor. Fund of knowledge is excellent. INSTRUCTIONS GIVEN TO PATIENT: A. Medications: 1. Bupropion XL 150 mg p.o. q.a.m. 2. Clonazepam 0.5 mg p.o. b.i.d. p.r.n. anxiety. 3. [place] ER 750 mg p.o. q.h.s. 4. Multivitamin 1 tab p.o. daily. 5. Paliperidone Sustenna 156 mg q.28 days. This was last received on 12/27/18. 6. Topiramate 100 mg p.o. b.i.d. 7. Venlafaxine XR 75 mg p.o. daily. C. Activity: As tolerated. Tobacco cessation is not applicable. There are no pending labs or diagnostic studies. D. Followup care: The patient was transferred to [facility] for longer term psychiatric stabilization. HOSPITAL COURSE: Part A: Reason for admission: The patient presented to the emergency department with suicidal ideation and a plan to overdose on medications. History of present illness: Kalee is a 38-year-old white female domiciled, unemployed with a history of schizoaffective disorder, depressed type and autism spectrum disorder. She was discharged from our unit 8 days prior to presentation. She had followed up with her outpatient psychiatrist and therapist and did start attending the [facility] program at [facility]. She reports returning home as "difficult" due to racing thoughts, decreased motivation, and urges to harm herself. She reports an increase in auditory hallucination over the past week including command hallucinations. She states that yesterday was a very difficult day in regard to symptomatology. She called her outpatient therapist and reported urges to cut herself which she has not done so since she was a teenager. Instead of harming herself, she drank a bottle of wine. She denies other alcohol use for at least 3 to 4 weeks. The patient reports decreased energy and is usually exhausted by 6 p.m. and she usually sleeps until 6 a.m. She reports she spends much of her time in bed, the majority. Past psychiatrist history: The patient is known to this unit and to this junior copywriter due to previous admissions. This is her 7th admission on the [facility] since 2011. She was last admitted on 11/17/18 and discharged on 11/29/18. She has had increasing psychiatrist hospitalizations over the past 2 years. Part B: Psychiatric treatment rendered: The patient was admitted to adult behavioral service unit on voluntary status. Code status is full. We resumed outpatient medications. The patient reported desire for longer term stabilization. She stated understanding of process and agreed to do so. She reported fear of returning home due to chronic and constant suicidal ideation. We submitted a referral to the [facility]. She was accepted pending bed availability. Recommendations to start either Clozaril or lithium. The patient declined Clozaril and reported trying lithium in the past and was agreeable to another trial. We titrated this up to 750 mg at h.s. Her last level was 0.36. While on the unit and waiting [facility] bed to [facility] up, the patient was increasingly interactive on the unit with much staff prompting. She exhibited poor motivation and poor energy. She reported some improvement in energy when allowed to have caffeine with meals. She reported some improvement in energy when lithium was dosed once daily instead of twice daily. The patient was partially adherent to assignments regarding cognitive behavioral therapy. She is able to identify with feeling annoyed or irritable with others. She has difficulty identifying self-deprecating thoughts or depressive or automatic negative thoughts. She is encouraged to practice doing this to identify cognitive distortions. The patient was clam and in behavioral control. She was allowed 30-minute observation staff pass and computer privileges. Even though she endorsed suicidal ideation, she reported feeling safe on the unit. She was very patient while waiting for bed availability. In fact, there was 1 week where we were expecting bed availability and the patient tolerated well when notified it would be until another week. She had visits by her grandfather and her stepfather and his family and reported feeling supported. Her family did not live nearby and she would benefit from more social engagement. The patient met with psychologist, Maldonado Saha, PHD, completed a Rorschach. Please see consultation from Dr. Saha. There were no other consults or radiology. HOMAR MALHOTRA, [employer] FIN[employer]ER [id number]/[facility] #: [id number] [place]
== END 2019-01-11 11:50 | DRG 750 ==
LOC: ED 13:51 → BSU 16:08
PROVIDERS: ADMIT Psychiatry & Neurology Psychiatry; ATTEND Psychiatry & Neurology Psychiatry
PROC: GZHZZZZ Group Psychotherapy (ICD-10-PCS; principal; 2019-01-10)
DX: F25.0 Schizoaffective disorder, bipolar type (principal); R45.851 Suicidal ideations; Z68.43 Body mass index [BMI] 50.0-59.9, adult; F84.0 Autistic disorder; Z56.0 Unemployment, unspecified; E66.9 Obesity, unspecified; E03.9 Hypothyroidism, unspecified; E11.9 Type 2 diabetes mellitus without complications; I10 Essential (primary) hypertension; J30.2 Other seasonal allergic rhinitis; G43.909 Migraine, unspecified, not intractable, without status migrainosus; F41.0 Panic disorder [episodic paroxysmal anxiety]; F43.10 Post-traumatic stress disorder, unspecified; F50.81 Binge eating disorder; Z87.891 Personal history of nicotine dependence; Z72.89 Other problems related to lifestyle; Z88.0 Allergy status to penicillin; Z88.1 Allergy status to other antibiotic agents; Z91.018 Allergy to other foods; Z81.8 Family history of other mental and behavioral disorders; Z91.5 Personal history of self-harm
CPT/HCPCS: 36415; 80053; 80061; 80178; 80307; 80320; 80329; 81003; 81015; 83036; 84443; 84702; 85025; 87086; 90853; 96130; 99222; 99231; 99232; 99233; 99238; 99284; A9270-GY; G0480; J2426

== ENCOUNTER 2019-03-16 09:03 | Emergency (ER) | payer OTHER ==
[2019-03-16 09:23] VITALS: BP 136/80
--- NOTE | 2019-03-16 11:30 | UC ---
General HPI - HPI Summary HPI Summary: PATIENT FINISHED A SEVEN-DAY COURSE OF DOXYCYCLINE 5 DAYS AGO FOR DIAGNOSIS OF PNEUMONIA. STATES SHE HAS PERSISTENT LEFT LOWER ANTERIOR RIB CAGE PAIN THAT IS WORSE WITH DEEP BREATHS, COUGHING AND LAUGHING. SHE DENIES ANY TRAUMA. NO FEVER. SHE ALSO IS COMPLAINING OF RIGHT SIDED EAR PAIN SINCE THIS MORNING. NO CHANGE IN HEARING. NO DRAINAGE. - History of Current Complaint Chief Complaint: UCGeneralIllness Stated Complaint: RIB PAIN Time Seen by Provider: 03/16/19 10:16 Hx Obtained From: Patient Hx Last Menstrual Period: 02/02/19 Onset/Duration: Gradual Onset, Lasting Days, Still Present Timing: Constant Onset Severity: Moderate Current Severity: Moderate Pain Intensity: 8 - Allergy/Home Medications Allergies/Adverse Reactions: Allergies Allergy/AdvReac Type Severity Reaction Status Date / Time kiwi Allergy Severe Itching Verified 03/16/19 09:12 amoxicillin Allergy Intermediate Itching Verified 03/16/19 09:12 azithromycin Allergy Intermediate GI Upset Verified 03/16/19 09:12 Home Medications: Home Medications [place] [facility] ER TAB* 750 mg PO BEDTIME 03/16/19 [History Confirmed 03/16/19 ] PMH/Surg Hx/FS Hx/Imm Hx Psychological History: Other - SCHIZOAFFECTIVE D/O Other History Of: Negative For: Anticoagulant Therapy - Surgical History Surgical History: Yes Surgery Procedure, Year, and Place: leg vein removal (age 18) Oral surgery related to teeth grinding. - Family History Known Family History: Positive: Other - Schizophrenia, depression, suicide Negative: Hypertension, Diabetes - Social History Alcohol Use: Occasionally Alcohol Amount: denies Substance Use Type: None Smoking Status (MU): Former Smoker Type: Cigarettes Have You Smoked in the Last Year: Yes - states occasional cigarette but none in last 3 months When Did the Patient Quit Smoking/Using Tobacco: 3 months ago - Immunization History Most Recent Influenza Vaccination: this season Most Recent Tetanus Shot: current Most Recent Pneumonia Vaccination: none Review of Systems All Other Systems Reviewed And Are Negative: Yes Constitutional: Positive: Negative ENT: Positive: Ear Ache Respiratory: Positive: Other - PLEURITIC PAIN Cardiovascular: Positive: Negative Gastrointestinal: Positive: Negative Physical Exam Triage Information Reviewed: Yes Appearance: Well-Appearing, No Pain Distress, Well-Nourished Vital Signs: Initial Vital Signs Temp 98.6 F 03/16/19 09:16 Pulse 98 03/16/19 09:16 Resp 18 03/16/19 09:16 BP 136/80 03/16/19 09:16 Pulse Ox 98 03/16/19 09:16 Vital Signs Reviewed: Yes Eyes: Positive: Conjunctiva Clear ENT: Positive: Hearing grossly normal, Pharynx normal, TMs normal - FLUID BEHIND RIGHT TM, Other - CERUMEN BILATERAL EAC Neck: Positive: Supple, Nontender, No Lymphadenopathy Respiratory Exam: Normal Cardiovascular Exam: Normal Abdomen Description: Positive: Soft Musculoskeletal: Positive: No Edema Neurological: Positive: Alert Psychological: Positive: Age Appropriate Behavior Skin: Negative: Rashes Diagnostics - Radiology CXR Radiology Interpretation Completed By: Radiologist Summary of Radiographic Findings: NO DEFINITE PNEUMONIA Course/Dx - Course Course Of Treatment: PATIENTS LEFT ANTERIOR RIB CAGE PAIN/PLEURITIC PAIN IS LIKELY DUE TO COSTOCHONDRITIS A RESULT OF HER RECENT PNEUMONIA AND COUGH. ADVISED OTC ANALGESICS AND TO SEEK FOLLOW-UP IF HER SYMPTOMS DO NOT IMPROVE OVER THE NEXT WEEK OR SO. CHEST X-RAY TODAY UNREMARKABLE. BILATERAL EACS OCCLUDED WITH CERUMEN. THIS WAS SUCCESSFULLY IRRIGATED BY RN. FLUID BEHIND RIGHT TM BUT NOT INFECTED. ADVISED THAT THIS WILL RESOLVE ON ITS OWN WITH TIME AND THAT SHE MAY TRY AN OTC DECONGESTANT. - Diagnoses Provider Diagnosis: Costochondritis, Impacted cerumen of both ears, Right serous otitis media Discharge ED - Sign-Out/Discharge Documenting (check all that apply): Patient Departure All imaging exams completed and their final reports reviewed: Yes - Discharge Plan Condition: Stable Disposition: HOME Patient Education Materials: Cerumen Impaction (ED), Costochondritis (ED), Serous Otitis Media (ED) Referrals: Yvonne Jane MD [Primary Care Provider] - If Needed Additional Instructions: CHEST X-RAY TODAY UNREMARKABLE. YOU LIKELY HAVE INFLAMMATION OF THE CARTILAGE AND RIB CAGE POSSIBLY DUE TO THE COUGHING FROM YOUR RECENT PNEUMONIA. TAKE ANTI -INFLAMMATORY SUCH IBUPROFEN OR NAPROXEN TO HELP WITH YOUR SYMPTOMS. BE SURE TO TAKE SLOW DEEP BREATHS TO HELP KEEP YOUR LUNGS EXPANDED. SEEK FOLLOW- UP IF YOU DEVELOP FEVER, WORSENING PAIN, SHORTNESS OF BREATH OR ANY OTHER CONCERNING SYMPTOMS. IBUPROFEN MAX DOSE: 600MG (3 TABS) EVERY 6 HRS OR 800MG (4 TABS) EVERY 8 HRS OR NAPROXEN MAX DOSE: 440MG (2 TABS) EVERY 12 HRS TYLENOL MAX DOSE: 1000MG (2 EXTRA STRENGTH TABS) EVERY 8 HRS OR 650MG (2 REGULAR TABS) EVERY 6 HRS CERUMEN SUCCESSFULLY IRRIGATED HERE IN THE UC. YOU HAVE FLUID TRAPPED BEHIND YOUR RIGHT EARDRUM. THIS SHOULD RESOLVE ON ITS OWN WITH TIME. NO INFECTION AT PRESENT. SEEK FOLLOW-UP IF YOUR SYMPTOMS DO NOT IMPROVE. - Billing Disposition and Condition Condition: STABLE Disposition: Home
== END 2019-03-16 11:46 | disposition home or self-care (01) ==
LOC: UCEAST 09:03
DX: M94.0 Chondrocostal junction syndrome [Tietze] (principal); H61.23 Impacted cerumen, bilateral; H65.91 Unspecified nonsuppurative otitis media, right ear; Z87.891 Personal history of nicotine dependence
CPT/HCPCS: 71046; 99213; G0463

== ENCOUNTER 2019-03-19 07:03 | Emergency (ER) | payer OTHER ==
[2019-03-19 07:14] VITALS: BP 125/75
--- NOTE | 2019-03-19 07:28 | UC ---
Ear Complaint HPI - HPI Summary HPI Summary: Patient is a 38-year-old female here with right ear pain. Patient's had right ear pain for the past couple of days. Patient was seen here a couple days ago where she had her ears cleaned and was told she had an effusion. Patient was not started on antibiotics. Initially, patient's pain got worse and she noticed swelling to the right side of her face. Patient has never had symptoms like this before. Patient of fever, chills, vomiting, abdominal pain, chest pain. Patient does have nasal congestion and a mild cough. Medications reviewed - History of Current Complaint Chief Complaint: UCEar Stated Complaint: RT EAR/RT SIDE FACE SWELLING Time Seen by Provider: 03/19/19 07:09 Hx Last Menstrual Period: 02/03/19 Pain Intensity: 8 - Allergies/Home Medications Allergies/Adverse Reactions: Allergies Allergy/AdvReac Type Severity Reaction Status Date / Time kiwi Allergy Severe Itching Verified 03/19/19 07:14 amoxicillin Allergy Intermediate Itching Verified 03/19/19 07:14 azithromycin Allergy Intermediate GI Upset Verified 03/19/19 07:14 Home Medications: Home Medications Ibuprofen TAB* [Advil TAB*] 200 mg PO Q6H PRN 03/19/19 [History Confirmed ] PMH/Surg Hx/FS Hx/Imm Hx Previously Healthy: Yes Other History Of: Negative For: Anticoagulant Therapy - Surgical History Surgical History: Yes Surgery Procedure, Year, and Place: leg vein removal (age 18) Oral surgery related to teeth grinding. - Family History Known Family History: Positive: Other - Schizophrenia, depression, suicide, Non- Contributory Negative: Hypertension, Diabetes - Social History Alcohol Use: Rare Alcohol Amount: denies Substance Use Type: None Smoking Status (MU): Former Smoker Type: Cigarettes Have You Smoked in the Last Year: Yes - states occasional cigarette but none in last 3 months When Did the Patient Quit Smoking/Using Tobacco: 3 months ago - Immunization History Most Recent Influenza Vaccination: this season Most Recent Tetanus Shot: current Most Recent Pneumonia Vaccination: none Review of Systems All Other Systems Reviewed And Are Negative: Yes Constitutional: Negative: Fever, Chills Eyes: Negative: Drainage, Photophobia ENT: Positive: Ear Ache, Nasal Discharge. Negative: Sore Throat Respiratory: Positive: Cough. Negative: Shortness Of Breath Cardiovascular: Negative: Chest Pain Gastrointestinal: Negative: Abdominal Pain, Vomiting Genitourinary: Negative: Dysuria Physical Exam - Summary Physical Exam Summary: Vital Signs Reviewed: Yes A+Ox3, no distress Eyes: Conjunctiva Clear, PERRL. EOM intact and full ENT: TM on the right with a small effusion. Tenderness over the right parotid gland. No carotid stones palpated. No dental tenderness. No facial asymmetry. Patient has no facial droop Neck: Positive: Supple Respiratory: Positive: No respiratory distress, No accessory muscle use + CTA throughout no w/r Cardiovascular: RRR nl s1, s2 no m/r CBT <2 sec abd soft + BS nt/nd no guarding, no distension Musculoskeletal Exam: SHORT x 4 without difficulty Strength Intact, ROM Intact Neurological: Positive: Alert, + sensation throughout Psychological: Positive: Normal Response To Family Skin: no rash, no ecchymosis Vital Signs: Initial Vital Signs Temp 99.3 F 03/19/19 07:08 Pulse 94 03/19/19 07:08 Resp 16 03/19/19 07:08 BP 125/75 03/19/19 07:08 Pulse Ox 95 03/19/19 07:08 Ear Complaint Course/Dx - Course Course Of Treatment: A she is here with symptoms consistent with viral parotitis. Patient has no stones in the her parotid duct. Patient is overall well-appearing with no evidence of supertive parotitis. Patient was educated on sialagogues and symptomatic treatment. Patient was given a [id number] antibiotic as this is her second visit and is her biggest concern. - Differential Dx/Diagnosis Provider Diagnosis: Parotitis Discharge ED - Sign-Out/Discharge Documenting (check all that apply): Patient Departure All imaging exams completed and their final reports reviewed: No Studies - Discharge Plan Condition: Stable Disposition: HOME Prescriptions: Azithromycin TAB* [Zithromax TAB (Z-VIDHI) 250 mg #6 tabs] 500 mg PO DAILY 5 Days #10 tab Patient Education Materials: Sialoadenitis (ED) Referrals: Yvonne Jane MD [Primary Care Provider] - Additional Instructions: Please go buy sour lemon hard candies to suck on them 8 times a day Please take ibuprofen 600 mg as needed for pain every 6 hours Please return if you have worsening symptoms Please fill your antibiotic prescription on Thursday fever if you are not feeling better. - Billing Disposition and Condition Condition: STABLE Disposition: Home
== END 2019-03-19 07:34 | disposition home or self-care (01) ==
LOC: UCEAST 07:03
DX: K11.20 Sialoadenitis, unspecified (principal); Z88.1 Allergy status to other antibiotic agents; Z88.0 Allergy status to penicillin; Z91.018 Allergy to other foods; Z87.891 Personal history of nicotine dependence
CPT/HCPCS: 99212; G0463

== ENCOUNTER 2021-09-26 11:18 | Inpatient (IN) ==
[2021-09-26 12:33] LABS: ABS Basophils 0.1 10^3/ul (0-0.2); ABS Eosinophils 0.1 10^3/ul (0-0.6); ABS Lymphocytes 1.6 10^3/ul (1.0-4.8); ABS Monocytes 0.6 10^3/ul (0-0.8); ABS Neutrophils 4.6 10^3/ul (1.5-7.7); Eosinophil % 0.9 %; Hematocrit 41 % (35-47); Hemoglobin 13.7 g/dL (12.0-16.0); Lymphocyte % 23.2 %; Mean Corpuscular HGB Conc 34 g/dL (31-36); Mean Corpuscular Hemoglobin 29 pg (27-31); Mean Corpuscular Volume 86 fL (80-97); Mean Platelet Volume 8.5 fL (7.4-10.4); Nucleated Red Blood Cells % 0.1; Platelet Count 239 10^3/uL (150-450); Red Blood Count 4.74 10^6 /uL (3.70-4.87); Red Cell Distribution Width 14 % (10-15); White Blood Count 6.9 10^3/uL (3.5-10.8)
[2021-09-26 12:57] LABS: Urine Benzodiazepine Screen None Detected (None Detect); Urine Cannabinoids Screen None Detected (None Detect); Urine Opiates Screen None Detected (None Detect)
[2021-09-26 13:14] LABS: ALT 23 U/L (7-52); Acetaminophen < 15 mcg/mL; Albumin/Globulin Ratio 1.5 (1-3); Alcohol, S < 13 mg/dL (<13); Alkaline Phosphatase 50 U/L (35-149); Blood Urea Nitrogen 7 mg/dL (6-24); CO2 Carbon Dioxide 22 mmol/L (22-32); Calcium 9.1 mg/dL (8.6-10.3); Chloride 107 mmol/L (101-111); Globulin 2.7 g/dL (2-4); Glucose 92 mg/dL (70-100); Salicylate < 2.50 mg/dL (<30); Sodium 138 mmol/L (135-145); Total Protein 6.7 g/dL (6.4-8.9); eGFR CKD-EPI 77.2 (>60)
[2021-09-26 13:19] LABS: HCG Pregnancy < 0.60 mIU/mL
[2021-09-26 14:08] LABS: HIV 4th Generation Nonreactive (Nonreactive)
[2021-09-26 14:44] LABS: Anion Gap 9 mmol/L (2-11)
[2021-09-26] MEDS ORDERED: Al Hydrox/Mg Hydrox/Simet LIQ 30 ML UDC PO PRN (15:02)
[2021-09-27 08:26] LABS: HDL Cholesterol 55.5 mg/dL
[2021-09-27 08:27] LABS: Potassium Redraw 4.4 mmol/L (3.5-5.0)
[2021-09-27] MEDS: Vitamin THERAPEUTIC TAB PO SCH (08:37)
[2021-09-28] MEDS: Vitamin THERAPEUTIC TAB PO SCH (08:35)
[2021-09-29] MEDS: Vitamin THERAPEUTIC TAB PO SCH (08:24)
[2021-09-30] MEDS: Vitamin THERAPEUTIC TAB PO SCH (10:05)
[2021-09-30] MEDS ORDERED: buPROPion SR 100 mg TAB.SR PO ONE (10:05)
[2021-10-01] MEDS: Vitamin THERAPEUTIC TAB PO SCH (08:23)
[2021-10-02] MEDS: Vitamin THERAPEUTIC TAB PO SCH (08:20)
[2021-10-03] MEDS: Vitamin THERAPEUTIC TAB PO SCH (08:03)
[2021-10-03 08:12] VITALS: BP 147/85
== END 2021-10-03 12:10 | disposition home or self-care (01) | DRG 750 ==
LOC: ED 11:18 → EDHOLD 15:02 → BSU 17:30
PROVIDERS: ADMIT Registered Nurse Psychiatric/Mental Health; ATTEND Psychiatry & Neurology Psychiatry

== ENCOUNTER 2021-12-07 14:56 | Inpatient (IN) ==
[2021-12-07 17:14] LABS: Urine Appearance Clear; Urine Bilirubin Negative (Negative); Urine Blood Negative (Negative); Urine Color Yellow; Urine Glucose Negative (Negative); Urine Ketones Negative (Negative); Urine Nitrite Negative (Negative); Urine Protein Negative (Negative); Urine Specific Gravity 1.003 (1.002-1.030); Urine Urobilinogen Negative (Negative)
[2021-12-07 17:27] LABS: Urine Benzodiazepine Screen None Detected (None Detect); Urine Cannabinoids Screen None Detected (None Detect); Urine Opiates Screen None Detected (None Detect)
[2021-12-07 17:30] LABS: ABS Basophils 0.1 10^3/ul (0-0.2); ABS Eosinophils 0.1 10^3/ul (0-0.6); ABS Lymphocytes 1.8 10^3/ul (1.0-4.8); ABS Monocytes 0.7 10^3/ul (0-0.8); ABS Neutrophils 4.9 10^3/ul (1.5-7.7); Eosinophil % 0.9 %; Hematocrit 42 % (35-47); Lymphocyte % 23.3 %; Mean Corpuscular HGB Conc 33 g/dL (31-36); Mean Corpuscular Hemoglobin 29 pg (27-31); Mean Corpuscular Volume 86 fL (80-97); Mean Platelet Volume 8.9 fL (7.4-10.4); Platelet Count 231 10^3/uL (150-450); Red Blood Count 4.88 10^6 /uL (3.70-4.87); Red Cell Distribution Width 14 % (10-15); White Blood Count 7.5 10^3/uL (3.5-10.8)
[2021-12-07 17:48] LABS: ALT 17 U/L (7-52); AST 14 U/L (13-39); Acetaminophen < 15 mcg/mL; Albumin 4.2 g/dL (3.2-5.2); Albumin/Globulin Ratio 1.4 (1-3); Alcohol, S < 13 mg/dL (<13); Alkaline Phosphatase 53 U/L (35-149); Anion Gap 7 mmol/L (2-11); Blood Urea Nitrogen 8 mg/dL (6-24); CO2 Carbon Dioxide 26 mmol/L (22-32); Chloride 106 mmol/L (101-111); Globulin 3.1 g/dL (2-4); Glucose 103 mg/dL (70-100); Magnesium 2.1 mg/dL (1.9-2.7); Potassium 3.9 mmol/L (3.5-5.0); Salicylate < 2.50 mg/dL (<30); Sodium 139 mmol/L (135-145); Total Protein 7.3 g/dL (6.4-8.9); eGFR CKD-EPI 69.2 (>60)
[2021-12-07 17:54] LABS: HCG Pregnancy < 0.60 mIU/mL
[2021-12-07 18:02] LABS: TSH Ultra Thyroid Stim Horm 2.04 mcIU/mL (0.34-5.60)
[2021-12-07] MEDS ORDERED: Al Hydrox/Mg Hydrox/Simet LIQ 30 ML UDC PO PRN (22:17)
[2021-12-08 07:57] LABS: HDL Cholesterol 41.1 mg/dL
[2021-12-08] MEDS: Vitamin THERAPEUTIC TAB PO SCH (08:32)
[2021-12-09] MEDS: Vitamin THERAPEUTIC TAB PO SCH (08:38)
[2021-12-10 07:53] VITALS: BP 139/70
[2021-12-10] MEDS: Vitamin THERAPEUTIC TAB PO SCH (08:07)
[2021-12-10 21:43] LABS: Anaplasma phagocytophilum Negative (Negative); B. miyamotoi PCR, B Negative (Negative); Babesia divergens/MO-1 Negative (Negative); Babesia ducani Negative (Negative); Ehrlichia chaffeensis Negative (Negative); Ehrlichia ewingii/canis Negative (Negative); Ehrlichia muris eauclairensis Negative (Negative)
== END 2021-12-10 13:21 | disposition home or self-care (01) | DRG 750 ==
LOC: ED 14:56 → EDHOLD 20:45 → BSU 22:46
PROVIDERS: ADMIT Student in an Organized Health Care Education/Training Program; ATTEND Psychiatry & Neurology Psychiatry

== ENCOUNTER 2021-12-16 15:16 | Inpatient (IN) ==
[2021-12-16 16:09] LABS: ABS Eosinophils 0.1 10^3/ul (0-0.6); ABS Lymphocytes 1.7 10^3/ul (1.0-4.8); ABS Monocytes 0.6 10^3/ul (0-0.8); ABS Neutrophils 4.4 10^3/ul (1.5-7.7); Eosinophil % 1.3 %; Hematocrit 41 % (35-47); Hemoglobin 13.5 g/dL (12.0-16.0); Lymphocyte % 25.3 %; Mean Corpuscular HGB Conc 33 g/dL (31-36); Mean Corpuscular Hemoglobin 29 pg (27-31); Mean Corpuscular Volume 86 fL (80-97); Mean Platelet Volume 8.8 fL (7.4-10.4); Platelet Count 260 10^3/uL (150-450); Red Blood Count 4.73 10^6 /uL (3.70-4.87); Red Cell Distribution Width 14 % (10-15); White Blood Count 6.9 10^3/uL (3.5-10.8)
[2021-12-16 16:23] LABS: Urine Appearance Clear; Urine Bilirubin Negative (Negative); Urine Blood 3+ (Negative); Urine Color Straw; Urine Glucose Negative (Negative); Urine Ketones Negative (Negative); Urine Nitrite Negative (Negative); Urine Protein Negative (Negative); Urine Specific Gravity 1.003 (1.002-1.030); Urine Urobilinogen Negative (Negative)
[2021-12-16 16:46] LABS: HCG Pregnancy < 0.60 mIU/mL
[2021-12-16 16:51] LABS: Urine Bacteria 1+ (Absent); Urine Red Blood Cell Trace(0-2/hpf) (Absent); Urine Squamous Epithelial Cell Present (Absent); Urine White Blood Cell Trace(0-5/hpf) (Absent)
[2021-12-16 16:53] LABS: TSH Ultra Thyroid Stim Horm 1.84 mcIU/mL (0.34-5.60)
[2021-12-16 17:30] LABS: Urine Benzodiazepine Screen None Detected (None Detect); Urine Cannabinoids Screen None Detected (None Detect); Urine Opiates Screen None Detected (None Detect)
[2021-12-16 17:34] LABS: ALT 15 U/L (7-52); AST 15 U/L (13-39); Acetaminophen < 15 mcg/mL; Albumin/Globulin Ratio 1.4 (1-3); Alcohol, S < 13 mg/dL (<13); Alkaline Phosphatase 53 U/L (35-149); Anion Gap 11 mmol/L (2-11); Blood Urea Nitrogen 11 mg/dL (6-24); CO2 Carbon Dioxide 24 mmol/L (22-32); Calcium 8.9 mg/dL (8.6-10.3); Chloride 105 mmol/L (101-111); Globulin 2.8 g/dL (2-4); Glucose 121 mg/dL (70-100); Magnesium 2.1 mg/dL (1.9-2.7); Potassium 4.4 mmol/L (3.5-5.0); Salicylate < 2.50 mg/dL (<30); Sodium 140 mmol/L (135-145); Total Protein 6.8 g/dL (6.4-8.9); eGFR CKD-EPI 72.6 (>60)
[2021-12-16] MEDS ORDERED: Enoxaparin 40 MG/0.4 ML SYR SUBCUT SCH (22:00)
[2021-12-17 06:03] LABS: ABS Basophils 0.1 10^3/ul (0-0.2); ABS Eosinophils 0.1 10^3/ul (0-0.6); ABS Lymphocytes 2.1 10^3/ul (1.0-4.8); ABS Monocytes 0.7 10^3/ul (0-0.8); ABS Neutrophils 4.2 10^3/ul (1.5-7.7); Eosinophil % 1.8 %; Hematocrit 41 % (35-47); Hemoglobin 13.4 g/dL (12.0-16.0); Lymphocyte % 29.2 %; Mean Corpuscular HGB Conc 33 g/dL (31-36); Mean Corpuscular Hemoglobin 28 pg (27-31); Mean Corpuscular Volume 85 fL (80-97); Mean Platelet Volume 8.9 fL (7.4-10.4); Nucleated Red Blood Cells % 0.1; Platelet Count 216 10^3/uL (150-450); Red Blood Count 4.81 10^6 /uL (3.70-4.87); Red Cell Distribution Width 15 % (10-15); White Blood Count 7.2 10^3/uL (3.5-10.8)
[2021-12-17 06:36] LABS: Blood Urea Nitrogen 14 mg/dL (6-24); CO2 Carbon Dioxide 27 mmol/L (22-32); Calcium 9.1 mg/dL (8.6-10.3); Chloride 105 mmol/L (101-111); Glucose 80 mg/dL (70-100); Sodium 139 mmol/L (135-145); eGFR CKD-EPI 61.3 (>60)
[2021-12-17 06:59] LABS: Anion Gap 7 mmol/L (2-11)
[2021-12-18] MEDS: Vitamin THERAPEUTIC TAB PO SCH (09:00)
[2021-12-18] MEDS ORDERED: Al Hydrox/Mg Hydrox/Simet LIQ 30 ML UDC PO PRN (14:32)
[2021-12-19] MEDS: Vitamin THERAPEUTIC TAB PO SCH (08:23)
[2021-12-20] MEDS: Vitamin THERAPEUTIC TAB PO SCH (08:23)
[2021-12-20] MEDS: DULoxetine DR 30 mg CAP PO SCH (08:24)
[2021-12-21] MEDS: Vitamin THERAPEUTIC TAB PO SCH (08:27)
[2021-12-21] MEDS: DULoxetine DR 30 mg CAP PO SCH (08:27)
[2021-12-22] MEDS: Vitamin THERAPEUTIC TAB PO SCH (08:55)
[2021-12-22] MEDS: DULoxetine DR 30 mg CAP PO SCH (08:55)
[2021-12-23] MEDS: DULoxetine DR 30 mg CAP PO SCH (08:47)
[2021-12-23] MEDS: Vitamin THERAPEUTIC TAB PO SCH (08:47)
[2021-12-24] MEDS: Vitamin THERAPEUTIC TAB PO SCH (08:28)
[2021-12-24] MEDS: DULoxetine DR 30 mg CAP PO SCH (08:28)
[2021-12-24] MEDS ORDERED: DULoxetine DR 30 mg CAP PO ONE (10:07)
[2021-12-25] MEDS: DULoxetine DR 30 mg CAP PO SCH (08:13)
[2021-12-25] MEDS: Vitamin THERAPEUTIC TAB PO SCH (08:13)
[2021-12-25] MEDS ORDERED: DULoxetine DR 30 mg CAP PO ONE (08:45)
[2021-12-26 08:04] VITALS: BP 126/83
[2021-12-26] MEDS: Vitamin THERAPEUTIC TAB PO SCH (08:22)
[2021-12-26] MEDS ORDERED: DULoxetine DR 60 mg CAP PO SCH (09:00)
== END 2021-12-26 13:30 | disposition home or self-care (01) | DRG 750 ==
LOC: EDHOLD 15:16 → ED 15:16 → BSU 12-17 15:53
PROVIDERS: ADMIT Student in an Organized Health Care Education/Training Program; ATTEND Psychiatry & Neurology Psychiatry